=== PATIENT | female | born 1940 | race Caucasian/White ===

== ENCOUNTER 2020-01-01 13:00 | Observation (INO) | payer MEDICARE, BC ==
[2020-01-01] MEDS ORDERED: Sodium Chloride 0.9% 10 ML Syringe FLUSH PRN ×2 (13:03→16:16)
[2020-01-01] MEDS ORDERED: Famotidine 20 MG/2 ML SDV IVPUSH ONE (13:03)
[2020-01-01] MEDS ORDERED: Metoprolol Tartrate 5 MG/5 ML SDV IVPUSH ONE (13:03)
--- NOTE | 2020-01-01 13:03 | EDM.PDOC ---
ED HPI GENERAL MEDICAL PROBLEM - General Chief Complaint: General Stated Complaint: tahycardia Time Seen by Provider: 01/01/20 13:03 Source of Information: Reports: Patient, Family, Old Records ([facility] chart/EMR) History Limitations: Reports: No Limitations - History of Present Illness INITIAL COMMENTS - FREE TEXT/NARRATIVE: The patient was referred to this emergency room by her regular provider, DANILO Khan at the [facility] in [place] before apparently newly diagnosed atrial fibrillation with mild rapid ventricular response. The patient insisted on driving herself to this facility rather than taking an ambulance for further evaluation. The patient denies any chest pain/pressure, heart flutter, orthostasis, orthopnea, diaphoresis, paresthesias, or any other anginal -type symptoms, although she has had some nonspecific dizziness during the last couple of days and also some decreased exercise tolerance for the last week.. No recent history of abdominal pain, heartburn, nausea, melena, gross hematochezia, or any food intolerance, including fatty foods, etc. with stable chronic diarrhea from her irritable bowel syndrome. She denies any gross hematuria, colic, or other UTI symptoms. The patient also denies any recent fever, cough, wheezing, dyspnea, etc.. She denies any significant caffeine use, use of OTC cold preparations, etc. No history of any pain or discomfort. Onset: Gradual, Unknown/Unsure Duration: Constant Location: Reports: Other (No pain) Severity: Mild Improves with: Reports: None Worsens with: Reports: None Context: Reports: Other (As above). 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: Other (see below) (None) - Related Data Allergies Allergy/AdvReac Type Severity Reaction Status Date / Time amoxicillin trihydrate Allergy Nausea Verified 01/01/20 13:01 [From Augmentin] nickel Allergy Rash Verified 01/01/20 13:01 potassium clavulanate Allergy Nausea Verified 01/01/20 13:01 [From Augmentin] Home Meds: Home Meds Acetaminophen/Diphenhydramine [Tylenol Pm Ex-Strength Caplet] 25 tab PO BEDTIME PRN 11/18/15 [History] Atropine/Diphenoxylate [Lomotil 0.025-2.5 MG] 1 tab PO BID PRN 11/18/15 [History ] Celecoxib [CeleBREX] 200 mg PO BEDTIME 11/18/15 [History] Esomeprazole Magnesium [Nexium] 40 mg PO DAILY 11/18/15 [History] Eszopiclone [Lunesta] 2 mg PO BEDTIME PRN 11/18/15 [History] Multivitamin with Minerals [Multiple Vitamin] 1 tab PO DAILY 11/18/15 [History] Aspirin [Halfprin] 81 mg PO DAILY 12/08/15 [History] Calcium Carbonate [Calcium] 600 mg PO DAILY 12/08/15 [History] Cholecalciferol (Vitamin D3) [Vitamin D3] 3,000 unit PO DAILY 12/08/15 [History] DULoxetine [Cymbalta] 60 mg PO DAILY 01/27/16 [History] Ibuprofen/Diphenhydramine Cit [Motrin PM Caplet] 2 tab PO BEDTIME PRN 01/27/16 [ History] atorvaSTATin [Lipitor] 10 mg PO BEDTIME 01/01/20 [History] Past Medical History HEENT History: Reports: Allergic Rhinitis, Cataract, Hard of Hearing, Impaired Vision. Denies: Glaucoma, Macular Degeneration, Otitis Media, Retinal Detachment Other HEENT History: She wears glasses. Bilateral presbycusis with bilateral hearing aides therapy. Cardiovascular History: Reports: High Cholesterol. Denies: Afib, Aneurysm, Arrhythmia, Blood Clots/VTE/DVT, CAD, Heart Failure, Heart Murmur, Hypertension , OK, PVD, Syncope Respiratory History: Reports: Intubation, Previous. Denies: Asthma, Bronchitis , Recurrent, COPD, Intubation, Difficult, PE, Pneumonia, Recurrent, Pneumothorax , Sleep Apnea, TB Gastrointestinal History: Reports: Chronic Diarrhea, Diverticulosis, GERD, Hemorrhoids, Irritable Bowel Syndrome, Other (See Below). Denies: Bowel Obstruction, Cholelithiasis, Chronic Constipation, Colon Polyp, Fecal Incontinence, Gastritis, GI Bleed, Hepatitis, Inflammatory Bowel Disease, Jaundice, Pancreatitis, PUD Other Gastrointestinal History: Sigmoid diverticulosis. Genitourinary History: Reports: None. Denies: Acute Renal Failure, Chronic Renal Insuffiency, Renal Calculus, STD, Urinary Incontinence, UTI, Recurrent RETAIL MARKETING SPECIALIST History: Reports: Fibroids, , Spontaneous . Denies: Dysfunctional Uterine Bleeding : 5 Para: 2 LMP (Approximate): Other (See Below) Other RETAIL MARKETING SPECIALIST History: Menopause at age 40. Subsequent complete hysterectomy secondary to fibroids at about age 72. SABs 3 in the first trimester with D&Cs as below. Otherwise, Full term without complications during pregnancies or deliveries Musculoskeletal History: Reports: Arthritis, Back Pain, Chronic, Neck Pain, Chronic, Osteoarthritis, Osteoporosis. Denies: Amputation, Fracture, Gout, RA, SLE Neurological History: Reports: Headaches, Chronic, Migraines. Denies: Cerebral Aneurysms, Concussion, CVA, Head Trauma, MS, Neuropathy, Diabetic, Neuropathy, Peripheral, Parkinson's, Seizure, TIA Psychiatric History: Reports: Anxiety, Depression. Denies: Abuse, Victim of, ADD, ADHD, Addiction, Psych Hospitalization(s), Suicide Attempt, Suicidal Ideation Endocrine/Metabolic History: Reports: Osteopenia, Osteoporosis. Denies: Diabetes, Gestational, Diabetes, Type I, Diabetes, Type II, Diabetes Mellitus, Type 3c, Hypothyroidism, IDDM Hematologic History: Reports: Other (See Below). Denies: Anemia, Blood Transfusion(s), Iron Deficiency Other Hematologic History: Carrier for Leiden factor V deficiency. Immunologic History: Reports: None. Denies: AIDS, HIV, SLE Oncologic (Cancer) History: Reports: None. Denies: Basal Cell Carcinoma, Breast , Cervix, Colon, Hodgkin's Lymphoma, Leukemia, Lymphoma, Malignant Melanoma, Non -Hodgkin's Lymphoma, Ovarian, Squamous Cell Carcinoma, Uterine Dermatologic History: Reports: None. Denies: Eczema, Psoriasis - Infectious Disease History Infectious Disease History: Reports: Chicken Pox, Measles, Mumps, Pertussis ( Whooping Cough). Denies: C-Difficile, Meningitis, Mononucleosis, MRSA, Rheumatic Fever, Rubella, Scarlet Fever, Shingles, TB, VRE - Past Surgical History Head Surgeries/Procedures: Reports: None HEENT Surgical History: Reports: Cataract Surgery, Oral Surgery, Other (See Below). Denies: Adenoidectomy, Eye Surgery, Laser Surgery, LASIK, Myringotomy w Tube(s), Naso-Sinus Surgery, Tonsillectomy Other HEENT Surgeries/Procedures: Biateral cataract surgery 2013. Multiple teeth extractions. Cardiovascular Surgical History: Reports: None. Denies: Varicose Respiratory Surgical History: Reports: None. Denies: Thoracentesis GI Surgical History: Reports: Appendectomy, Colonoscopy, Other (See Below). Denies: Cholecystectomy, EGD, Hernia, Abdominal, Hernia, Inguinal, Hernia Repair /Other, Polypectomy Other GI Surgeries/Procedures: Appendectomy in April 1958. Hemorrhoidectomy on . Colonoscopy on 12/08/15, 09/06/08, and 11/27/04. Female Surgical History: Reports: Breast Biopsy, D&C, Dilitation & Evacuation , Hysterectomy, Salpingo-Oophorectomy, Other (See Below) Other Female Surgeries/Procedures: Bilateral breast biopsies for benign disease. Complete hysterectomy secondary to uterine fibroid on 11/19/13. D&C 3 secondary to SABs as above. Endocrine Surgical History: Reports: None. Denies: Thyroid Biopsy Neurological Surgical History: Denies: C-Spine, Discectomy, Intracranial, Laminectomy, Lumbar Spine, Sacral Spine, Spinal Fusion, Thoracic Spine, Vertebroplasty Musculoskeletal Surgical History: Reports: Joint Replacement, Shoulder Surgery, Other (See Below). Denies: Arthroscopic Procedure, Carpal Tunnel, Ganglion Cyst Other Musculoskeletal Surgeries/Procedures:: Bilateral wrist/hand tendon tendon release. Left shoulder total arthroplasty on 11/19/13 subsequent total shoulder arthroplasty in 2014. Oncologic Surgical History: Reports: Biopsy of Breast, Other (See Below) Other Oncologic Surgeries/Procedures: As above for benign disease. Dermatological Surgical History: Reports: None - Past Imaging History Past Imaging History: Reports: MRI (MRI of the C-spine on 03/06/10.) Social & Family History - Family History Cardiac: Reports: CAD, Hypertension, OK, Other (See Below). Denies: Afib, Aneurysm, Arrhythmia, Blood Clots/VTE/DVT, Heart Failure, Heart Murmur, High Cholesterol, PVD/COD, Syncope Other Cardiac Family History: Mother with concurrent CVA and acute OK with unsuccessful CABG at age 79. Father with fatal OK at age 77. Sister with fatal OK at age 83. Hypertension in father, sister, and brothers 2. Respiratory: Reports: None. Denies: Asthma, COPD, PE, Pneumothorax, Sleep Apnea GI: Reports: None. Denies: Celiac Disease, Cholelithiasis, Colon Polyps, GERD, GI bleed, Inflammatory Bowel Disease, Irritable Bowel Syndrome, PUD : Reports: Dialysis, Renal Disease/Insufficiency, Other (See Below). Denies: Renal Calculus Other Family History: Brotherwith renal failure requiring dialysis fatal at age 73. OBGYN: Reports: Endometriosis, Other (See Below). Denies: Recurrent Spontaneous Other OBGYN Family History: Sister with endometriosis. Musculoskeletal: Reports: Arthritis, Osteoarthritis, Other (See Below). Denies : Gout, RA, SLE Other Musculoskeletal Family History: Sisters 2 with osteoarthritis. Neurological: Reports: CVA, Other (See Below). Denies: Alzheimers Disease, Dementia, Migraines, MS, Parkinson's, Seizure, TIA Other Neurological Family History: Mother with CVA as above. Psychiatric: Denies: Abuse, Victim of, ADD, ADHD, Anxiety, Depression, Psych Hospitalization(s), Psychosis, PTSD, Suicide Attempt Endocrine/Metabolic: Reports: Diabetes, type II, IDDM, Other (See Below). Denies: Diabetes, Gestational, Diabetes, Type I, Diabetes Mellitus, Type 3c, Hypothyroidism Other Endocrine/Metabolic Family History: IDDM in brother from complications at age 47. Hematologic: Reports: None. Denies: Anemia, SLE Immunologic: Reports: None. Denies: AIDS, HIV, SLE Dermatologic: Reports: None. Denies: Eczema, Psoriasis Oncologic: Reports: Breast, Lymphoma, Metastatic, Other (See Below). Denies: Cervix, Colon, Hodgkin's Lymphoma, Leukemia, Non-Hodgkin's Lymphoma, Ovarian, Skin, Uterine Other Oncologic Family History: Mother with history of lymphoma. Sister with fatal metastatic breast cancer at 79. Another sister with unknown type of fatal cancer in her late 70s. - Tobacco Use Smoking Status *Q: Never Smoker Tobacco Use Within Last Twelve Months: No Used Tobacco, but Quit: No Smoking Cessation Information Provided To Patient: No Second Hand Smoke Exposure: No Second Hand Smoke Education Provided: No - Caffeine Use Caffeine Use: Reports: Coffee (2 Cups Per day.), Soda (1 soda per month). Denies: Energy Drinks, Tea - Alcohol Use Alcohol Use History: Yes Days Per Week of Alcohol Use: 0 Number of Drinks Per Day: 1 Number of Drinks Per Day Comment: Usually beer for holidays. No previous DWIs, problems with alcohol abuse, etc. 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 ED EXAM, GENERAL - Physical Exam Exam: See Below Exam Limited By: No Limitations General Appearance: Alert, WD/WN, No Apparent Distress Eye Exam: Bilateral Eye: EOMI, Normal Inspection (No nystagmus. Patient wearing glasses.), PERRL Ears: Normal External Exam, Normal Canal, Normal TMs, Hearing Loss (Mild bilateral presbycusis with patient only wearing her left hearing aid today.) Nose: Normal Inspection, Normal Mucosa, No Blood Throat/Mouth: Normal Inspection, Normal Lips, Normal Teeth (Multiple missing teeth), Normal Gums, Normal Oropharynx, Normal Voice, No Airway Compromise. No : Dysphagia, Perioral Cyanosis Head: Atraumatic, Normocephalic. No: Facial Swelling, Facial Tenderness, Sinus Tenderness Neck: Supple, Non-Tender, Full Range of Motion, Carotid Bruit (Mild bilateral carotid bruits). No: Lymphadenopathy (L), Lymphadenopathy (R), Thyromegaly Respiratory/Chest: No Respiratory Distress, No Accessory Muscle Use, Chest Non- Tender, Rales (Mild Bilateral basilar rales). No: Pleural Rub, Retractions Cardiovascular: Normal Peripheral Pulses, No Edema, No Gallop, No JVD, No Murmur , No Rub, Tachycardia (Initially as below), Irregularly Irregular. No: Gallop/ S3, Gallop/S4, Friction Rub Peripheral Pulses: 2+: Radial (L), Radial (R), Dorsalis Pedis (L), Dorsalis Pedis (R) GI/Abdominal: Normal Bowel Sounds, Soft, Non-Tender, No Organomegaly, No Distention, No Abnormal Bruit, No Mass. No: Pelvis Stable (Female) Exam: Deferred Rectal (Female) Exam: Deferred Back Exam: Normal Inspection, Full Range of Motion. No: CVA Tenderness (L), CVA Tenderness (R), Muscle Spasm Extremities: Normal Inspection, Normal Range of Motion, Non-Tender, No Pedal Edema, Normal Capillary Refill. No: Juan's Sign Neurological: Alert, Oriented, CN II-XII Intact, Normal Cognition, Normal Gait, Normal Reflexes (Negative Babinski's), No Motor/Sensory Deficits Psychiatric: Normal Affect Skin Exam: Warm, Dry, Intact, Normal Color, No Rash. No: Diaphoretic, Wound/ Incision Lymphatic: No Adenopathy EKG INTERPRETATION EKG Date: 01/01/20 Time: 13:09 Rhythm: A-Fib Rate (Beats/Min): 101 [place]: Normal (Neutral) P-Wave: Variable QRS: Normal (0.07 seconds) ST-T: Normal QT: Normal CO/PQ Interval: Variable with pulmonary hypertension by EKG Comparison: NA - No Prior EKG (No recent EKG for comparison) EKG Interpretation Comments: 1. Newly diagnosed atrial fibrillation with rapid ventricular response 2. Pulmonary hypertension by EKG 3. No acute ischemic changes Course - Vital Signs Last Recorded V/S: Last Vital Signs Temp 36.7 C 01/01/20 13:04 Pulse 82 01/01/20 14:23 Resp 17 01/01/20 14:23 BP 98/64 01/01/20 14:23 Pulse Ox 99 01/01/20 14:23 Vital Signs - 24 hr 01/01/20 01/01/20 01/01/20 13:01 13:04 13:08 Temperature [ 36.5 C 36.7 C Temporal] Pulse, Peripheral Pulse, 99 106 H 103 H Peripheral [ Right Pulse Oximetry] Respiratory 19 19 15 Rate Blood Pressure Blood Pressure 107/61 107/61 121/62 [Right Upper Arm] O2 Sat by Pulse 91 L 95 95 Oximetry O2 Sat by Pulse 99 Oximetry [Room Air] 01/01/20 01/01/20 01/01/20 13:23 13:26 13:53 Temperature [ Temporal] Pulse, 108 H Peripheral Pulse, 90 85 Peripheral [ Right Pulse Oximetry] Respiratory 11 L 16 Rate Blood Pressure 120/61 Blood Pressure 120/61 97/71 [Right Upper Arm] O2 Sat by Pulse 96 99 Oximetry O2 Sat by Pulse Oximetry [Room Air] 01/01/20 01/01/20 14:08 14:23 Temperature [ Temporal] Pulse, Peripheral Pulse, 86 82 Peripheral [ Right Pulse Oximetry] Respiratory 17 17 Rate Blood Pressure Blood Pressure 101/67 98/64 [Right Upper Arm] O2 Sat by Pulse 97 99 Oximetry O2 Sat by Pulse Oximetry [Room Air] - Orders/Labs/Meds Orders: Active Orders 24 hr Category Date Time Status Cardiac Monitoring [RC] . DIRECTED Care 01/01/20 13:04 Active EKG Documentation Completion [RC] ASDIRECTED Care 01/01/20 13:04 Active Oxygen Therapy, ED [RC] CONTINUOUS Care 01/01/20 13:04 Active Peripheral IV Care [RC] . DIRECTED Care 01/01/20 13:04 Active Pulse Oximetry [RC] CONTINUOUS Care 01/01/20 13:04 Active Up With Assistance [RC] PFP Care 01/01/20 13:04 Active Vital Signs [RC] PFP Care 01/01/20 13:04 Active Nothing per Oral Now Diet [DIET] Diet 01/01/20 Breakfast Active Chest 1V Frontal [CR] Stat Exams 01/01/20 13:04 Taken Chest PE [Ang Chest] [CT] Stat Exams 01/01/20 14:16 Taken Venous Doppler Lwr Ext Bi [US] Urgent Exams 01/01/20 14:16 Taken Sodium Chloride 0.9% [Saline Flush] Med 01/01/20 13:03 Active 10 ml FLUSH ASDIRECTED PRN Obtain Past Medical Record [OM.PC] Urgent Oth 01/01/20 13:04 Active Peripheral IV Insertion Adult [OM.PC] Stat Oth 01/01/20 13:04 Ordered Resuscitation Status Stat Resus Stat 01/01/20 13:03 Ordered Medication Orders Sodium Chloride (Saline Flush) 10 ml FLUSH ASDIRECTED PRN PRN Reason: Keep Vein Open Last Admin: 01/01/20 13:31 Dose: 10 ml Labs: Laboratory Tests 01/01/20 01/01/20 01/01/20 Range/Units 13:18 13:18 13:18 WBC 6.7 (4.0-10.2) K/uL RBC 4.22 (3.77-5.09) M/uL Hgb 12.6 (11.7-15.5) g/dL Hct 39.0 (34.0-46.0) % MCV 92.4 (84.0-98.0) fL MCH 29.9 (28.2-33.3) pg MCHC 32.3 (31.7-36.0) g/dL RDW 13.9 (11.2-14.1) % Plt Count 232 (150-350) K/uL Neut % (Auto) 68.1 (45.0-80.0) % Lymph % (Auto) 19.9 (10.0-50.0) % [place] % (Auto) 10.7 (2.0-14.0) % Eos % (Auto) 1.0 (0.0-5.0) % Baso % (Auto) 0.3 (0.0-2.0) % Neut # (Auto) 4.56 (1.40-7.00) K/uL Lymph # (Auto) 1.33 (0.50-3.50) K/uL [place] # (Auto) 0.72 (0.00-1.00) K/uL Eos # (Auto) 0.07 (0.00-0.50) K/uL Baso # (Auto) 0.02 (0.00-0.20) K/uL PT 10.1 (9.5-12.0) SEC INR 1.0 APTT 27.0 (24.5-32.8) SEC D-Dimer, Quantitative 799 H (0-400) ng/mL Sodium (136-145) mmol/L Potassium (3.5-5.1) mmol/L Chloride (98-107) mmol/L Carbon Dioxide (21.0-32.0) mmol/L BUN (7-18) mg/dL Creatinine (0.51-1.17) mg/dL Est Cr Clr Drug Dosing mL/min Estimated GFR (MDRD) mL/min Glucose (74-106) mg/dL Lactic Acid (0.4-2.0) mmol/L Uric Acid (2.6-7.2) mg/dL Calcium (8.5-10.1) mg/dL Magnesium (1.8-2.4) mg/dL Total Bilirubin (0.2-1.0) mg/dL AST (15-37) U/L ALT (12-78) U/L Alkaline Phosphatase (46-116) IU/L Creatine Kinase (26-308) U/L Creatine Kinase Index (0.0-2.5) % CK-MB (CK-2) (0.00-3.60) ng/mL Troponin I (0.000-0.056) ng/mL NT-Pro-B Natriuret Pep (0-125) pg/mL Total Protein (6.4-8.2) g/dL Albumin (3.4-5.0) g/dL TSH, Ultra Sensitive (0.358-3.740) mIU/mL 01/01/20 01/01/20 Range/Units 13:18 13:18 WBC (4.0-10.2) K/uL RBC (3.77-5.09) M/uL Hgb (11.7-15.5) g/dL Hct (34.0-46.0) % MCV (84.0-98.0) fL MCH (28.2-33.3) pg MCHC (31.7-36.0) g/dL RDW (11.2-14.1) % Plt Count (150-350) K/uL Neut % (Auto) (45.0-80.0) % Lymph % (Auto) (10.0-50.0) % [place] % (Auto) (2.0-14.0) % Eos % (Auto) (0.0-5.0) % Baso % (Auto) (0.0-2.0) % Neut # (Auto) (1.40-7.00) K/uL Lymph # (Auto) (0.50-3.50) K/uL [place] # (Auto) (0.00-1.00) K/uL Eos # (Auto) (0.00-0.50) K/uL Baso # (Auto) (0.00-0.20) K/uL PT (9.5-12.0) SEC INR APTT (24.5-32.8) SEC D-Dimer, Quantitative (0-400) ng/mL Sodium 140 (136-145) mmol/L Potassium 4.3 (3.5-5.1) mmol/L Chloride 107 (98-107) mmol/L Carbon Dioxide 24.6 (21.0-32.0) mmol/L BUN 16 (7-18) mg/dL Creatinine 1.04 (0.51-1.17) mg/dL Est Cr Clr Drug Dosing 35.09 mL/min Estimated GFR (MDRD) 51 mL/min Glucose 83 (74-106) mg/dL Lactic Acid 1.4 (0.4-2.0) mmol/L Uric Acid 5.3 (2.6-7.2) mg/dL Calcium 9.3 (8.5-10.1) mg/dL Magnesium 1.9 (1.8-2.4) mg/dL Total Bilirubin 0.3 (0.2-1.0) mg/dL AST 28 (15-37) U/L ALT 31 (12-78) U/L Alkaline Phosphatase 91 (46-116) IU/L Creatine Kinase 125 (26-308) U/L Creatine Kinase Index 1.6 (0.0-2.5) % CK-MB (CK-2) 2.00 (0.00-3.60) ng/mL Troponin I 0.000 (0.000-0.056) ng/mL NT-Pro-B Natriuret Pep 816 H (0-125) pg/mL Total Protein 7.1 (6.4-8.2) g/dL Albumin 3.8 (3.4-5.0) g/dL TSH, Ultra Sensitive 3.664 (0.358-3.740) mIU/mL Meds: Medications Generic Name Dose Route Start Last Admin Trade Name Freq PRN Reason Stop Dose Admin Sodium Chloride 10 ml 01/01/20 13:03 01/01/20 13:31 Saline Flush FLUSH 10 ml ASDIRECTED PRN Administration Keep Vein Open Discontinued Medications Generic Name Dose Route Start Last Admin Trade Name Freq PRN Reason Stop Dose Admin Famotidine 40 mg 01/01/20 13:03 01/01/20 13:30 Pepcid IVPUSH 01/01/20 13:04 40 mg ONETIME ONE Administration Iopamidol 100 ml 01/01/20 14:17 01/01/20 14:38 Isovue-370 (76%) IVPUSH 01/01/20 14:18 100 ml ONETIME ONE Administration Metoprolol Tartrate 2.5 mg 01/01/20 13:03 01/01/20 13:26 Lopressor IVPUSH 01/01/20 13:04 2.5 mg ONETIME ONE Administration - Radiology Interpretation Free Text/Narrative:: Edit monitor initially showed atrial fibrillation with rapid ventricular response and heart rates in the 100s to 110s with no other ectopy or arrhythmia. Improvement of heart rate into the 60s to 90s after IV Lopressor therapy with persistent atrial fibrillation however no other ectopy or arrhythmia. Chest x-ray, portable, shows borderline pulmonary obstructive disease with probable mild centralized CHF and/or pulmonary hypertension. Mild aortic valve calcification. No cardiomegaly, pulmonary infiltrates, pneumothorax, etc. Verbal report from delay, biomedical engineering technician, of venous Doppler studies of the lower extremities. No evidence of DVT. Benign Hansen's cyst was noted, however. CT of the chest using PE protocol was negative for PE with small benign right upper lobe pulmonary nodule. Preliminary verbal report from the radiology department was not received from Kyle despite her previous request. Departure - Departure Time of Disposition: 16:00 Disposition: Refer to Observation Condition: Good Clinical Impression: Atrial fibrillation with RVR, Peptic reflux disease, D-dimer, elevated, Pulmonary nodule Hyperlipidemia Qualifiers: Hyperlipidemia type: unspecified Qualified Code(s): E78.5 - Hyperlipidemia, unspecified Osteoarthritis Qualifiers: Osteoarthritis location: multiple joints Osteoarthritis type: primary Qualified Code(s): M15.0 - Primary generalized (osteo)arthritis Irritable bowel syndrome (IBS) Qualifiers: Irritable bowel syndrome type: with diarrhea Qualified Code(s): K58.0 - Irritable bowel syndrome with diarrhea CHF (congestive heart failure) Qualifiers: Heart failure type: unspecified Heart failure chronicity: acute Qualified Code( s): I50.9 - Heart failure, unspecified - Discharge Information *PRESCRIPTION DRUG MONITORING PROGRAM REVIEWED*: Not Applicable *COPY OF PRESCRIPTION DRUG MONITORING REPORT IN PATIENT JANIS: Not Applicable Referrals: Deepika Kamara NP [Primary Care Provider] - Forms: ED Department Discharge Care Plan Goals: See plan. Sepsis Event Note - Focused Exam Vital Signs: Vital Signs Temp Pulse Pulse Resp BP BP Pulse Ox 01/01/20 14:23 82 17 98/64 99 01/01/20 14:08 86 17 101/67 97 01/01/20 13:53 85 16 97/71 99 01/01/20 13:26 108 H 120/61 01/01/20 13:23 90 11 L 120/61 96 01/01/20 13:08 103 H 15 121/62 95 01/01/20 13:04 36.7 C 106 H 19 107/61 95 01/01/20 13:01 36.5 C 99 19 107/61 91 L Pulse Ox 01/01/20 14:23 01/01/20 14:08 01/01/20 13:53 01/01/20 13:26 01/01/20 13:23 01/01/20 13:08 01/01/20 13:04 99 01/01/20 13:01 Date Exam was Performed: 01/01/20 Time Exam was Performed: 15:58 - Problem List & Annotations (1) Atrial fibrillation with RVR SNOMED Code(s): 729985934387391 Code(s): I48.91 - UNSPECIFIED ATRIAL FIBRILLATION Status: Acute Priority : High Current Visit: Yes Onset Date: 01/01/20 Annotation/Comment:: Low- dose IV Lopressor given in the emergency room with resolution of tachycardia however persistent atrial fibrillation. Initiate low-dose Toprol XL on admission. No chest pain or anginal type symptoms with chest pain protocol not initiated in the emergency room.. Initiate standard rule out OK orders with further cardiac workup on an outpatient basis, including recommended echocardiogram in this facility on 01/04 and Cardiolite stress test with me on . Cardiology consultation depending on her clinical course. 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 (2) CHF (congestive heart failure) SNOMED Code(s): 51728745 Code(s): I50.9 - HEART FAILURE, UNSPECIFIED Status: Acute Priority: High Current Visit: Yes Onset Date: 01/01/20 Annotation/Comment:: Mild BNP elevation and CSF by clinical exam. Echocardiogram as above. No Lasix for now. Qualifiers: Heart failure type: unspecified Heart failure chronicity: acute Qualified Code(s): I50.9 - Heart failure, unspecified (3) D-dimer, elevated SNOMED Code(s): 349468856 Code(s): R79.89 - OTHER SPECIFIED ABNORMAL FINDINGS OF BLOOD CHEMISTRY Status: Acute Priority: High Current Visit: Yes Onset Date: 01/01/20 Annotation/Comment:: Negative venous Doppler study evaluation and CT of the chest as above. Observe for now. No clinical evidence of DVT or PE. (4) Hyperlipidemia SNOMED Code(s): [id number] Code(s): E78.5 - HYPERLIPIDEMIA, UNSPECIFIED Status: Chronic Priority: Medium Current Visit: Yes Annotation/Comment:: Lipid panel and glycosylated hemoglobin in the a.m. Qualifiers: Hyperlipidemia type: unspecified Qualified Code(s): E78.5 - Hyperlipidemia , unspecified (5) Irritable bowel syndrome (IBS) SNOMED Code(s): 33451547 Code(s): K58.9 - IRRITABLE BOWEL SYNDROME WITHOUT DIARRHEA Status: Chronic Priority: Medium Current Visit: Yes Annotation/Comment:: Stable by history Qualifiers: Irritable bowel syndrome type: with diarrhea Qualified Code(s): K58.0 - Irritable bowel syndrome with diarrhea (6) Osteoarthritis SNOMED Code(s): 789766201 Code(s): M19.90 - UNSPECIFIED OSTEOARTHRITIS, UNSPECIFIED SITE Status: Chronic Priority: Medium Current Visit: Yes Annotation/Comment:: Stable by history Qualifiers: Osteoarthritis location: multiple joints Osteoarthritis type: primary Qualified Code(s): M15.0 - Primary generalized (osteo)arthritis (7) Peptic reflux disease SNOMED Code(s): 976158915 Code(s): K21.9 - GASTRO-ESOPHAGEAL REFLUX DISEASE WITHOUT ESOPHAGITIS Status: Chronic Priority: Medium Current Visit: Yes Annotation/Comment:: Stable by history. High-dose IV Pepcid given in the emergency room as GI prophylaxis. (8) Pulmonary nodule SNOMED Code(s): 022474399 Code(s): R91.1 - SOLITARY PULMONARY NODULE Status: Acute Priority: Medium Current Visit: Yes Onset Date: 01/01/20 Annotation/Comment:: Incidental benign right upper lobe pulmonary nodule as above. Observe for now. No history of tobacco use. - Problem List Review Problem List Initiated/Reviewed/Updated: Yes - My Orders Last 24 Hours: My Active Orders 01/01/20 13:03 Sodium Chloride 0.9% [Saline Flush] 10 ml FLUSH ASDIRECTED PRN Resuscitation Status Stat 01/01/20 13:04 Cardiac Monitoring [RC] . DIRECTED EKG Documentation Completion [RC] ASDIRECTED Oxygen Therapy, ED [RC] CONTINUOUS Peripheral IV Care [RC] . DIRECTED Pulse Oximetry [RC] CONTINUOUS Up With Assistance [RC] PFP Vital Signs [RC] PFP Chest 1V Frontal [CR] Stat Obtain Past Medical Record [OM.PC] Urgent Peripheral IV Insertion Adult [OM.PC] Stat 01/01/20 14:16 Chest PE [Ang Chest] [CT] Stat Venous Doppler Lwr Ext Bi [US] Urgent 01/01/20 Breakfast Nothing per Oral Now Diet [DIET] - Assessment/Plan Admission H&P: Please use this note as an admission H&P Last 24 Hours: My Active Orders 01/01/20 13:03 Sodium Chloride 0.9% [Saline Flush] 10 ml FLUSH ASDIRECTED PRN Resuscitation Status Stat 01/01/20 13:04 Cardiac Monitoring [RC] . DIRECTED EKG Documentation Completion [RC] ASDIRECTED Oxygen Therapy, ED [RC] CONTINUOUS Peripheral IV Care [RC] . DIRECTED Pulse Oximetry [RC] CONTINUOUS Up With Assistance [RC] PFP Vital Signs [RC] PFP Chest 1V Frontal [CR] Stat Obtain Past Medical Record [OM.PC] Urgent Peripheral IV Insertion Adult [OM.PC] Stat 01/01/20 14:16 Chest PE [Ang Chest] [CT] Stat Venous Doppler Lwr Ext Bi [US] Urgent 01/01/20 Breakfast Nothing per Oral Now Diet [DIET] Assessment:: As above Plan: As above. Extensive precautions were given to the patient and her daughter, who are in agreement with the treatment plan. The patient's condition is stable enough for observation status and general supervision. Kray norris physician assumes care in the a.m.
[2020-01-01] MEDS ORDERED: Iopamidol 755 Mg/ML 100 ML Bottle IVPUSH ONE (14:17)
[2020-01-01] MEDS ORDERED: Atropine/Diphenoxylate 0.025-2.5 MG Tab PO PRN (16:15)
[2020-01-01] MEDS ORDERED: Acetaminophen 325 MG Tab PO PRN (16:16)
[2020-01-01] MEDS ORDERED: Temazepam 15 MG Cap PO PRN (16:16)
[2020-01-01] MEDS ORDERED: Metoprolol Succinate 25 MG Tab.ER PO SCH (18:37)
[2020-01-01] MEDS ORDERED: atorvaSTATin 10 MG Tab PO SCH (20:00)
[2020-01-02 07:28] LABS: HEMOGLOBIN A1C 5.8 % (4.3-5.7)
[2020-01-02 07:54] LABS: CHLORIDE,CL 108 mmol/L (98-107); SODIUM,NA 140 mmol/L (136-145)
[2020-01-02] MEDS ORDERED: DULoxetine 30 MG Cap PO SCH (08:00)
[2020-01-02] MEDS ORDERED: Aspirin 81 MG Tab.EC PO SCH (08:00)
[2020-01-02 09:34] VITALS: BP 114/54; PULSE 74
--- NOTE | 2020-01-02 09:47 | PCM.DCSUM1 ---
Discharge Summary - Hospital Course Free Text/Narrative:: Pt admitted with Afib and RVR Pt has hx/o intermittent Afib but no hx/o RVR previously Pt now converted and symptom free - Discharge Data Discharge Date: 01/02/20 Discharge Disposition: Home, Self-Care 01 Condition: Good - Referral to Home Health Primary Care Physician: Deepika Kamara NP - Discharge Diagnosis/Problem(s) (1) Atrial fibrillation with RVR SNOMED Code(s): 081083352887435 ICD Code: I48.91 - UNSPECIFIED ATRIAL FIBRILLATION Status: Acute Priority : High Current Visit: Yes Onset Date: 01/01/20 Problem Details: Low-dose IV Lopressor given in the emergency room with resolution of tachycardia however persistent atrial fibrillation. Initiate low-dose Toprol XL on admission. No chest pain or anginal type symptoms with chest pain protocol not initiated in the emergency room.. Initiate standard rule out [place] orders with further cardiac workup on an outpatient basis, including recommended echocardiogram in this facility on 01/04 and Cardiolite stress test with me on 01/06. Cardiology consultation depending on her clinical course. 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 - Patient Instructions Diet: Usual Diet as Tolerated Activity: As Tolerated Driving: May Drive Today Showering/Bathing: May Shower Other/Special Instructions: Usual medications and follow up with usual provider - Discharge Plan *PRESCRIPTION DRUG MONITORING PROGRAM REVIEWED*: Not Applicable *COPY OF PRESCRIPTION DRUG MONITORING REPORT IN PATIENT JANIS: Not Applicable Home Medications: Home Meds Acetaminophen/Diphenhydramine [Tylenol Pm Ex-Strength Caplet] 25 tab PO BEDTIME PRN 11/18/15 [History] Atropine/Diphenoxylate [Lomotil 0.025-2.5 MG] 1 tab PO BID PRN 11/18/15 [History ] Celecoxib [CeleBREX] 200 mg PO BEDTIME 11/18/15 [History] Esomeprazole Magnesium [Nexium] 40 mg PO DAILY 11/18/15 [History] Eszopiclone [Lunesta] 2 mg PO BEDTIME PRN 11/18/15 [History] Multivitamin with Minerals [Multiple Vitamin] 1 tab PO DAILY 11/18/15 [History] Aspirin [Halfprin] 81 mg PO DAILY 12/08/15 [History] Calcium Carbonate [Calcium] 600 mg PO DAILY 12/08/15 [History] Cholecalciferol (Vitamin D3) [Vitamin D3] 3,000 unit PO DAILY 12/08/15 [History] DULoxetine [Cymbalta] 60 mg PO DAILY 01/27/16 [History] Ibuprofen/Diphenhydramine Cit [Motrin PM Caplet] 2 tab PO BEDTIME PRN 01/27/16 [ History] atorvaSTATin [Lipitor] 10 mg PO BEDTIME 01/01/20 [History] Forms: ED Department Discharge Referrals: Deepika Kamara NP [Primary Care Provider] - - Discharge Summary/Plan Comment DC Time >30 min.: No - General Info Date of Service: 01/02/20 Admission Dx/Problem (Free Text: Pt asymptomatic currently - Review of Systems Pulmonary: Reports: No Symptoms Cardiovascular: Reports: Palpitations Gastrointestinal: Reports: No Symptoms Musculoskeletal: Reports: No Symptoms - Patient Data Vitals - Most Recent: Last Vital Signs Temp 97.6 F 01/02/20 08:00 Pulse 74 01/02/20 08:00 Resp 20 01/02/20 08:00 BP 114/54 L 01/02/20 08:00 Pulse Ox 95 01/02/20 08:00 Weight - Most Recent: 126 lb 6.4 oz Lab Results - Last 24 hrs: Laboratory Results - last 24 hr 01/01/20 01/01/20 01/01/20 Range/Units 13:18 13:18 13:18 WBC 6.7 (4.0-10.2) K/uL RBC 4.22 (3.77-5.09) M/uL Hgb 12.6 (11.7-15.5) g/dL Hct 39.0 (34.0-46.0) % MCV 92.4 (84.0-98.0) fL MCH 29.9 (28.2-33.3) pg MCHC 32.3 (31.7-36.0) g/dL RDW 13.9 (11.2-14.1) % Plt Count 232 (150-350) K/uL Neut % (Auto) 68.1 (45.0-80.0) % Lymph % (Auto) 19.9 (10.0-50.0) % [place] % (Auto) 10.7 (2.0-14.0) % Eos % (Auto) 1.0 (0.0-5.0) % Baso % (Auto) 0.3 (0.0-2.0) % Neut # (Auto) 4.56 (1.40-7.00) K/uL Lymph # (Auto) 1.33 (0.50-3.50) K/uL [place] # (Auto) 0.72 (0.00-1.00) K/uL Eos # (Auto) 0.07 (0.00-0.50) K/uL Baso # (Auto) 0.02 (0.00-0.20) K/uL PT 10.1 (9.5-12.0) SEC INR 1.0 APTT 27.0 (24.5-32.8) SEC D-Dimer, Quantitative 799 H (0-400) ng/mL Sodium (136-145) mmol/L Potassium (3.5-5.1) mmol/L Chloride (98-107) mmol/L Carbon Dioxide (21.0-32.0) mmol/L BUN (7-18) mg/dL Creatinine (0.51-1.17) mg/dL Est Cr Clr Drug Dosing mL/min Estimated GFR (MDRD) mL/min Glucose (74-106) mg/dL Hemoglobin A1c (4.3-5.7) % Lactic Acid (0.4-2.0) mmol/L Uric Acid (2.6-7.2) mg/dL Calcium (8.5-10.1) mg/dL Magnesium (1.8-2.4) mg/dL Total Bilirubin (0.2-1.0) mg/dL AST (15-37) U/L ALT (12-78) U/L Alkaline Phosphatase (46-116) IU/L Creatine Kinase (26-308) U/L Creatine Kinase Index (0.0-2.5) % CK-MB (CK-2) (0.00-3.60) ng/mL Troponin I (0.000-0.056) ng/mL NT-Pro-B Natriuret Pep (0-125) pg/mL Total Protein (6.4-8.2) g/dL Albumin (3.4-5.0) g/dL Triglycerides (30-150) mg/dL Cholesterol (100-200) mg/dL LDL Cholesterol, Calc (0-100) mg/dL HDL Cholesterol (40-60) mg/dL TSH, Ultra Sensitive (0.358-3.740) mIU/mL 01/01/20 01/01/20 01/01/20 Range/Units 13:18 13:18 21:00 WBC (4.0-10.2) K/uL RBC (3.77-5.09) M/uL Hgb (11.7-15.5) g/dL Hct (34.0-46.0) % MCV (84.0-98.0) fL MCH (28.2-33.3) pg MCHC (31.7-36.0) g/dL RDW (11.2-14.1) % Plt Count (150-350) K/uL Neut % (Auto) (45.0-80.0) % Lymph % (Auto) (10.0-50.0) % [place] % (Auto) (2.0-14.0) % Eos % (Auto) (0.0-5.0) % Baso % (Auto) (0.0-2.0) % Neut # (Auto) (1.40-7.00) K/uL Lymph # (Auto) (0.50-3.50) K/uL [place] # (Auto) (0.00-1.00) K/uL Eos # (Auto) (0.00-0.50) K/uL Baso # (Auto) (0.00-0.20) K/uL PT (9.5-12.0) SEC INR APTT (24.5-32.8) SEC D-Dimer, Quantitative (0-400) ng/mL Sodium 140 (136-145) mmol/L Potassium 4.3 (3.5-5.1) mmol/L Chloride 107 (98-107) mmol/L Carbon Dioxide 24.6 (21.0-32.0) mmol/L BUN 16 (7-18) mg/dL Creatinine 1.04 (0.51-1.17) mg/dL Est Cr Clr Drug Dosing 35.09 mL/min Estimated GFR (MDRD) 51 mL/min Glucose 83 (74-106) mg/dL Hemoglobin A1c (4.3-5.7) % Lactic Acid 1.4 (0.4-2.0) mmol/L Uric Acid 5.3 (2.6-7.2) mg/dL Calcium 9.3 (8.5-10.1) mg/dL Magnesium 1.9 (1.8-2.4) mg/dL Total Bilirubin 0.3 (0.2-1.0) mg/dL AST 28 (15-37) U/L ALT 31 (12-78) U/L Alkaline Phosphatase 91 (46-116) IU/L Creatine Kinase 125 150 (26-308) U/L Creatine Kinase Index 1.6 1.8 (0.0-2.5) % CK-MB (CK-2) 2.00 2.70 (0.00-3.60) ng/mL Troponin I 0.000 0.000 (0.000-0.056) ng/mL NT-Pro-B Natriuret Pep 816 H (0-125) pg/mL Total Protein 7.1 (6.4-8.2) g/dL Albumin 3.8 (3.4-5.0) g/dL Triglycerides (30-150) mg/dL Cholesterol (100-200) mg/dL LDL Cholesterol, Calc (0-100) mg/dL HDL Cholesterol (40-60) mg/dL TSH, Ultra Sensitive 3.664 (0.358-3.740) mIU/mL 01/02/20 01/02/20 01/02/20 Range/Units 07:05 07:05 07:05 WBC 4.8 (4.0-10.2) K/uL RBC 3.79 (3.77-5.09) M/uL Hgb 11.3 L (11.7-15.5) g/dL Hct 35.1 (34.0-46.0) % MCV 92.6 (84.0-98.0) fL MCH 29.8 (28.2-33.3) pg MCHC 32.2 (31.7-36.0) g/dL RDW 13.6 (11.2-14.1) % Plt Count 209 (150-350) K/uL Neut % (Auto) 63.3 (45.0-80.0) % Lymph % (Auto) 24.0 (10.0-50.0) % [place] % (Auto) 10.4 (2.0-14.0) % Eos % (Auto) 1.9 (0.0-5.0) % Baso % (Auto) 0.4 (0.0-2.0) % Neut # (Auto) 3.04 (1.40-7.00) K/uL Lymph # (Auto) 1.15 (0.50-3.50) K/uL [place] # (Auto) 0.50 (0.00-1.00) K/uL Eos # (Auto) 0.09 (0.00-0.50) K/uL Baso # (Auto) 0.02 (0.00-0.20) K/uL PT (9.5-12.0) SEC INR APTT (24.5-32.8) SEC D-Dimer, Quantitative (0-400) ng/mL Sodium 140 (136-145) mmol/L Potassium 4.1 (3.5-5.1) mmol/L Chloride 108 H (98-107) mmol/L Carbon Dioxide 26.1 (21.0-32.0) mmol/L BUN 15 (7-18) mg/dL Creatinine 0.89 (0.51-1.17) mg/dL Est Cr Clr Drug Dosing 41.01 mL/min Estimated GFR (MDRD) > 60 mL/min Glucose 80 (74-106) mg/dL Hemoglobin A1c 5.8 H (4.3-5.7) % Lactic Acid (0.4-2.0) mmol/L Uric Acid (2.6-7.2) mg/dL Calcium 9.0 (8.5-10.1) mg/dL Magnesium (1.8-2.4) mg/dL Total Bilirubin 0.3 (0.2-1.0) mg/dL AST 19 (15-37) U/L ALT 23 (12-78) U/L Alkaline Phosphatase 80 (46-116) IU/L Creatine Kinase 120 (26-308) U/L Creatine Kinase Index 1.8 (0.0-2.5) % CK-MB (CK-2) 2.10 (0.00-3.60) ng/mL Troponin I 0.000 (0.000-0.056) ng/mL NT-Pro-B Natriuret Pep 232 H (0-125) pg/mL Total Protein 6.3 L (6.4-8.2) g/dL Albumin 3.4 (3.4-5.0) g/dL Triglycerides 60 (30-150) mg/dL Cholesterol 158 (100-200) mg/dL LDL Cholesterol, Calc 98 (0-100) mg/dL HDL Cholesterol 48 (40-60) mg/dL TSH, Ultra Sensitive (0.358-3.740) mIU/mL Med Orders - Current: Current Medications Acetaminophen (Tylenol) 650 mg PO Q4H PRN PRN Reason: Pain Aspirin (Halfprin) 81 mg PO DAILY [facility] Last Admin: 01/02/20 07:33 Dose: 81 mg Atorvastatin Calcium (Lipitor) 10 mg PO BEDTIME [facility] Last Admin: 01/01/20 19:29 Dose: 10 mg Diphenoxylate HCl/Atropine (Lomotil 0.025-2.5 Mg) 1 tab PO BID PRN PRN Reason: Diarrhea Duloxetine HCl (Cymbalta) 60 mg PO DAILY [facility] Last Admin: 01/02/20 07:33 Dose: 60 mg Metoprolol Succinate (Toprol Xl) 25 mg PO QPM [facility] Last Admin: 01/01/20 19:28 Dose: 25 mg Sodium Chloride (Saline Flush) 10 ml FLUSH ASDIRECTED PRN PRN Reason: Keep Vein Open Last Admin: 01/01/20 13:31 Dose: 10 ml Sodium Chloride (Saline Flush) 10 ml FLUSH Q12HR PRN PRN Reason: Keep Vein Open Temazepam (Restoril) 15 mg PO BEDTIME PRN PRN Reason: Insomnia Discontinued Medications Famotidine (Pepcid) 40 mg IVPUSH ONETIME ONE Stop: 01/01/20 13:04 Last Admin: 01/01/20 13:30 Dose: 40 mg Iopamidol (Isovue-370 (76%)) 100 ml IVPUSH ONETIME ONE Stop: 01/01/20 14:18 Last Admin: 01/01/20 14:38 Dose: 100 ml Metoprolol Tartrate (Lopressor) 2.5 mg IVPUSH ONETIME ONE Stop: 01/01/20 13:04 Last Admin: 01/01/20 13:26 Dose: 2.5 mg - Exam General: Reports: Alert, Oriented Lungs: Reports: Clear to Auscultation Cardiovascular: Reports: Regular Rate GI/Abdominal Exam: Non-Tender Extremities: No Pedal Edema
--- NOTE | 2020-01-05 11:20 | PCM.SN ---
- Free Text/Narrative Note: Hospital consultation with the patient, her , and her daughter, Rita, who is a pharmacist in our facility. They are now requesting further workup for her possible heart disease as per emergency room note on 01/01/20. Note mild atrial fibrillation with rapid ventricular response and CHF prior to that admission with negative workup for acute AK. The patient was not discharged with Toprol-XL, however we will now reinitiate Toprol-XL at 25 mg by mouth every afternoon, #30 with no refills, with prescription called to [facility] in [place]. Echocardiogram will be scheduled in this facility on 01/05 with additional Cardiolite stress test to be conducted in this facility by me on 01/14/20. Extensive precautions were given to the patient and her family, who are in agreement with the treatment plan. Consider anticoagulation therapy, cardiology referral, event monitor, etc. depending on her clinical course. Otherwise follow-up with her regular provider, DANILO Khan at the [facility], as previously directed and/or after completion of the above test results.
== END 2020-01-02 10:30 | disposition home or self-care (01) ==
LOC: LL.ED 13:00 → LL.MS 15:58 → UNDOADMOB 15:58 → LL.MS 16:10 → UNDODISOB 01-02 10:30
PROVIDERS: ADMIT Family Medicine; ATTEND Family Medicine
DX: I48.91 Unspecified atrial fibrillation (principal); R79.1 Abnormal coagulation profile; I50.9 Heart failure, unspecified; R91.1 Solitary pulmonary nodule; E78.5 Hyperlipidemia, unspecified; M15.0 Primary generalized (osteo)arthritis; K58.0 Irritable bowel syndrome with diarrhea; E78.00 Pure hypercholesterolemia, unspecified; F41.9 Anxiety disorder, unspecified; F32.9 Major depressive disorder, single episode, unspecified; M81.0 Age-related osteoporosis without current pathological fracture; K21.9 Gastro-esophageal reflux disease without esophagitis; Z79.82 Long term (current) use of aspirin; Z79.899 Other long term (current) drug therapy; Z88.0 Allergy status to penicillin; Z88.8 Allergy status to other drugs, medicaments and biological substances; Z82.49 Family history of ischemic heart disease and other diseases of the circulatory system
CPT/HCPCS: 36415; 71045; 71275; 80053; 80061; 82550; 82553; 83036; 83605; 83735; 83880; 84443; 84484; 84550; 85025; 85379; 85610; 85730; 93005; 93970; 96374; 96375; 99285-25; A9270-GY; G0378; J3490; Q9967

== ENCOUNTER 2020-01-07 12:40 | Emergency (ER) | payer MEDICARE, BC ==
[2020-01-07] MEDS ORDERED: Ketorolac 30 MG/ML SDV IVPUSH ONE (12:52)
[2020-01-07] MEDS ORDERED: Sodium Chloride 0.9% 10 ML Syringe FLUSH PRN (12:52)
--- NOTE | 2020-01-07 12:57 | EDM.PDOC ---
ED HPI GENERAL MEDICAL PROBLEM - General Chief Complaint: General Stated Complaint: dizziness, headache, arm pain Time Seen by Provider: 01/07/20 12:40 Source of Information: Reports: Patient, Old Records ([facility] chart/EMR) History Limitations: Reports: No Limitations - History of Present Illness INITIAL COMMENTS - FREE TEXT/NARRATIVE: The patient drove herself to the emergency room via private automobile for evaluation of a 6/10 throbbing bilateral frontal headache with additional sharp 6/10 left shoulder pain with no recent history of fall or injury. She has been under significant stress lately secondary to her 's placement in our swing bed unit. Symptoms started early yesterday morning with no improvement with 650 mg of Tylenol taken earlier this morning. The patient denies any chest pain/pressure, heart flutter, orthostasis, orthopnea, diaphoresis, paresthesias , recent decreased exercise tolerance, or any other anginal-type symptoms, although she has had occasional nonspecific dizziness since restarting her Toprol-XL after recent hospital discharge. No recent history of abdominal pain, heartburn, nausea, diarrhea, melena, gross hematochezia, or any food intolerance , including fatty foods, etc.. She denies any gross hematuria, colic, or other UTI symptoms. The patient also denies any recent fever, cough, wheezing, dyspnea , etc.. No history of recent visual changes, diplopia, change in mental status, or other change in neurological status. Onset: Gradual, Unknown/Unsure Onset Date: 01/06/20 Duration: Constant, Getting Worse Location: Reports: Head (Headache), Upper Extremity, Left. Denies: Face, Neck, Chest, Abdomen, Back, Pelvis, Upper Extremity, Right, Lower Extremity, Left, Lower Extremity, Right, Radiates to Quality: Reports: Same as Previous Episode, Sharp, Throbbing Severity: Moderate Improves with: Reports: None Worsens with: Reports: None Context: Reports: Other (As above). Denies: Sick Contact, Trauma Associated Symptoms: Reports: Headaches. Denies: Confusion, Chest Pain, Cough, Diaphoresis, Fever/Chills, Loss of Appetite, Malaise, Nausea/Vomiting, Rash, Seizure, Shortness of Breath, Syncope, Weakness Treatments [employer]AR: Reports: Acetaminophen Headache Pain Score (Numeric/FACES): 6 Left Shoulder Pain Score (Numeric/FACES): 6 - Related Data Allergies Allergy/AdvReac Type Severity Reaction Status Date / Time amoxicillin trihydrate Allergy Nausea Verified 01/07/20 12:55 [From Augmentin] nickel Allergy Rash Verified 01/07/20 12:55 potassium clavulanate Allergy Nausea Verified 01/07/20 12:55 [From Augmentin] Home Meds: Home Meds Acetaminophen/Diphenhydramine [Tylenol Pm Ex-Strength Caplet] 25 tab PO BEDTIME PRN 11/18/15 [History] Atropine/Diphenoxylate [Lomotil 0.025-2.5 MG] 1 tab PO BID PRN 11/18/15 [History ] Celecoxib [CeleBREX] 200 mg PO DAILY 11/18/15 [History] Esomeprazole Magnesium [Nexium] 40 mg PO DAILY 11/18/15 [History] Eszopiclone [Lunesta] 2 mg PO BEDTIME PRN 11/18/15 [History] Multivitamin with Minerals [Multiple Vitamin] 1 tab PO DAILY 11/18/15 [History] Aspirin [Halfprin] 81 mg PO DAILY 12/08/15 [History] Calcium Carbonate [Calcium] 600 mg PO DAILY 12/08/15 [History] Cholecalciferol (Vitamin D3) [Vitamin D3] 3,000 unit PO DAILY 12/08/15 [History] DULoxetine [Cymbalta] 60 mg PO DAILY 01/27/16 [History] atorvaSTATin [Lipitor] 10 mg PO BEDTIME 01/01/20 [History] Metoprolol Tartrate [Lopressor] 25 mg PO DAILY 01/07/20 [History] Past Medical History HEENT History: Reports: Allergic Rhinitis, Cataract, Hard of Hearing, Impaired Vision. Denies: Glaucoma, Macular Degeneration, Otitis Media, Retinal Detachment Other HEENT History: She wears glasses. Bilateral presbycusis with bilateral hearing aides therapy. Cardiovascular History: Reports: Afib, Heart Failure, High Cholesterol, Other ( See Below). Denies: Aneurysm, Arrhythmia, Blood Clots/VTE/DVT, CAD, Cardiomyopathy, Heart Murmur, Hypertension, OR, PVD, Syncope Other Cardiovascular History: Atrial fibrillation with rapid ventricular response with additional D-dimer elevation with negative workup on 01/01/20 as below. Respiratory History: Reports: Intubation, Previous, Other (See Below). Denies: Asthma, Bronchitis, Recurrent, COPD, Intubation, Difficult, PE, Pneumonia, Recurrent, Pneumothorax, Sleep Apnea, TB Other Respiratory History: Benign right upper lobe pulmonary nodule by CT scan on 01/01/20. Gastrointestinal History: Reports: Chronic Diarrhea, Diverticulosis, GERD, Hemorrhoids, Irritable Bowel Syndrome, Other (See Below). Denies: Celiac Disease, Cholelithiasis, Colon Polyp, Fecal Incontinence, Gastritis, GI Bleed, Hepatitis, Hiatal Hernia, Inflammatory Bowel Disease, Jaundice, Pancreatitis Other Gastrointestinal History: Sigmoid diverticulosis. Genitourinary History: Reports: None. Denies: Acute Renal Failure, Chronic Renal Insuffiency, Renal Calculus, Retention, Urinary, STD, Urinary Incontinence , UTI, Recurrent ERP SPECIALIST History: Reports: Fibroids, , Spontaneous . Denies: Dysfunctional Uterine Bleeding, Endometriosis : 5 Para: 2 LMP (Approximate): Other (See Below) Other ERP SPECIALIST History: Menopause at age 40. Subsequent complete hysterectomy secondary to fibroids at about age 72. SABs 3 in the first trimester with D&Cs as below. Otherwise, Full term without complications during pregnancies or deliveries Musculoskeletal History: Reports: Arthritis, Back Pain, Chronic, Neck Pain, Chronic, Osteoarthritis, Osteoporosis, Other (See Below). Denies: Fracture, Gout, RA, SLE Other Musculoskeletal History: Left popliteal cyst. Neurological History: Reports: Headaches, Chronic, Migraines. Denies: Cerebral Aneurysms, Concussion, CVA, Head Trauma, MS, Neuropathy, Peripheral, Parkinson's , Seizure, TIA, Vertigo Psychiatric History: Reports: Anxiety, Depression. Denies: Abuse, Victim of, ADD, ADHD, Addiction, Psych Hospitalization(s), PTSD, Suicide Attempt, Suicidal Ideation Endocrine/Metabolic History: Reports: Osteopenia, Osteoporosis. Denies: Diabetes, Gestational, Diabetes, Type I, Diabetes, Type II, Diabetes Mellitus, Type 3c, Hypothyroidism, IDDM Hematologic History: Reports: Other (See Below). 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 Immunologic History: Reports: None. Denies: AIDS, HIV, SLE Oncologic (Cancer) History: Reports: None. Denies: Basal Cell Carcinoma, Breast , Cervix, Colon, Hodgkin's Lymphoma, Leukemia, Lung, Lymphoma, Malignant Melanoma, Non-Hodgkin's Lymphoma, Ovarian, Squamous Cell Carcinoma, Uterine Dermatologic History: Reports: None. Denies: Eczema, Psoriasis - Infectious Disease History Infectious Disease History: Reports: Chicken Pox, Measles, Mumps, Pertussis ( Whooping Cough). Denies: C-Difficile, Meningitis, Mononucleosis, MRSA, Rheumatic Fever, Rubella, Scarlet Fever, Shingles, TB, VRE - Past Surgical History Head Surgeries/Procedures: Reports: None HEENT Surgical History: Reports: Cataract Surgery, Oral Surgery, Other (See Below). Denies: Adenoidectomy, Eye Surgery, Laser Surgery, LASIK, Myringotomy w Tube(s), Naso-Sinus Surgery, Tonsillectomy Other HEENT Surgeries/Procedures: Biateral cataract surgery 2013. Multiple teeth extractions. Cardiovascular Surgical History: Reports: None. Denies: Varicose Respiratory Surgical History: Reports: None. Denies: Thoracentesis GI Surgical History: Reports: Appendectomy, Colonoscopy, Other (See Below). Denies: Cholecystectomy, EGD, Hernia, Abdominal, Hernia, Inguinal, Hernia Repair /Other, Polypectomy Other GI Surgeries/Procedures: Appendectomy in April 1958. Hemorrhoidectomy on . Colonoscopy on 12/08/15, 09/06/08, and 11/27/04. Female Surgical History: Reports: Breast Biopsy, D&C, Dilitation & Evacuation , Hysterectomy, Salpingo-Oophorectomy, Other (See Below) Other Female Surgeries/Procedures: Bilateral breast biopsies for benign disease. Complete hysterectomy secondary to uterine fibroid on 11/19/13. D&C 3 secondary to SABs as above. Endocrine Surgical History: Reports: None. Denies: Thyroid Biopsy Neurological Surgical History: Reports: None. Denies: C-Spine, Discectomy, Laminectomy, Lumbar Spine, Sacral Spine, Spinal Fusion, Thoracic Spine, Vertebroplasty Musculoskeletal Surgical History: Reports: Joint Replacement, Shoulder Replacement, Shoulder Surgery, Other (See Below). Denies: Arthroscopic Procedure, Carpal Tunnel, Ganglion Cyst, Hip Replacement, ORIF Other Musculoskeletal Surgeries/Procedures:: Bilateral wrist/hand tendon tendon release. Left shoulder total arthroplasty on 11/19/13 subsequent right total shoulder arthroplasty in 2014. Oncologic Surgical History: Reports: Biopsy of Breast, Other (See Below) Other Oncologic Surgeries/Procedures: As above for benign disease. Dermatological Surgical History: Reports: None - Past Imaging History Past Imaging History: Reports: CAT Scan (Negative CTA of the chest for PE on 12/31.), MRI (MRI of the C-spine on 03/06/10.), Venous Doppler (Negative of the legs bilaterally on 01/01/20.) Social & Family History - Family History HEENT: Reports: None. Denies: Glaucoma, Macular Degeneration, Retinal Detachment Cardiac: Reports: CAD, Hypertension, OR, Other (See Below). Denies: Afib, AICD , Aneurysm, Arrhythmia, Blood Clots/VTE/DVT, Bypass, Cardiomyopathy, Heart Failure, Heart Murmur, High Cholesterol, PVD/COD, Syncope Other Cardiac Family History: Mother with concurrent CVA and acute OR with unsuccessful CABG at age 79. Father with fatal OR at age 77. Sister with fatal OR at age 83. Hypertension in father, sister, and brothers 2. Respiratory: Reports: None. Denies: Asthma, COPD, PE, Pneumothorax, Sleep Apnea GI: Reports: None. Denies: Celiac Disease, Cholelithiasis, Colon Polyps, GERD, GI bleed, Inflammatory Bowel Disease, Irritable Bowel Syndrome, PUD : Reports: Dialysis, Renal Disease/Insufficiency, Other (See Below) Other Family History: Brother with renal failure requiring dialysis fatal at age 73. OBGYN: Reports: Endometriosis, Other (See Below). Denies: Recurrent Spontaneous Other OBGYN Family History: Sister with endometriosis. Musculoskeletal: Reports: Arthritis, Osteoarthritis, Other (See Below). Denies : Gout, RA, SLE Other Musculoskeletal Family History: Sisters 2 with osteoarthritis. Neurological: Reports: CVA, Other (See Below). Denies: Alzheimers Disease, Cerebral Aneurysms, Dementia, Migraines, MS, Parkinson's, Seizure, TIA Other Neurological Family History: Mother with CVA as above. Psychiatric: Reports: None. Denies: Abuse, Victim of, ADD, ADHD, Anxiety, Depression, Psych Hospitalization(s), PTSD, Suicide Attempt Endocrine/Metabolic: Reports: Diabetes, type II, IDDM, Other (See Below). Denies: Diabetes, Gestational, Diabetes, Type I, Diabetes Mellitus, Type 3c, Hypothyroidism Other Endocrine/Metabolic Family History: IDDM in brother from complications at age 47. Hematologic: Reports: None. Denies: SLE Immunologic: Reports: None. Denies: SLE Dermatologic: Reports: None. Denies: Eczema, Psoriasis Oncologic: Reports: Breast, Lymphoma, Metastatic, Other (See Below) Other Oncologic Family History: Mother with history of lymphoma. Sister with fatal metastatic breast cancer at 79. Another sister with unknown type of fatal cancer in her late 70s. - Tobacco Use Smoking Status *Q: Never Smoker Tobacco Use Within Last Twelve Months: No Used Tobacco, but Quit: No Smoking Cessation Information Provided To Patient: No Second Hand Smoke Exposure: No Second Hand Smoke Education Provided: No - Caffeine Use Caffeine Use: Reports: Coffee (2 Cups per day). Denies: Energy Drinks, Soda, Tea - Alcohol Use Alcohol Use History: No Days Per Week of Alcohol Use: 0 Number of Drinks Per Day: 1 Number of Drinks Per Day Comment: Usually beer on holidays. No previous DWIs, problems with alcohol abuse, etc. 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 - Physical Exam Exam: See Below Exam Limited By: No Limitations General Appearance: Alert, WD/WN, No Apparent Distress, Anxious (Moderate) Eye Exam: Bilateral Eye: EOMI, Normal Fundi, Normal Inspection (Patient wearing glasses. No nystagmus), PERRL Ears: Normal External Exam, Normal Canal, Normal TMs, Other (Bilateral presbycusismild) Nose: Normal Inspection, Normal Mucosa, No Blood Throat/Mouth: Normal Inspection, Normal Lips, Normal Teeth (Multiple Missing teeth), Normal Gums, Normal Oropharynx, Normal Voice, No Airway Compromise. No : Dysphagia, Perioral Cyanosis Head Exam: Atraumatic, Normocephalic. No: Facial Tenderness, Sinus Tenderness Neck: Supple, Non-Tender, Full Range of Motion, Carotid Bruit (Bilateral carotid bruitsmild). No: Lymphadenopathy (L), Lymphadenopathy (R), Thyromegaly Respiratory/Chest: No Respiratory Distress, Lungs Clear, Normal Breath Sounds, No Accessory Muscle Use, Chest Non-Tender. No: Pleural Rub, Retractions Cardiovascular: Normal Peripheral Pulses, No Edema, No Gallop, No JVD, No Murmur , No Rub, Bradycardia (Occasional borderline), Extra Beats (Occasional as below) . No: Gallop/S3, Gallop/S4, Friction Rub GI/Abdominal: Normal Bowel Sounds, Soft, Non-Tender, No Organomegaly, No Distention, No Abnormal Bruit, No Mass. No: Guarding (Female) Exam: Deferred Rectal (Female) Exam: Deferred Neuro Exam (Abbreviated): Alert, Oriented, CN II-XII Intact, Normal Cognition, Normal Gait, No Motor/Sensory Deficits Back Exam: Normal Inspection, Full Range of Motion. No: CVA Tenderness (L), CVA Tenderness (R), Muscle Spasm Extremities: Normal Inspection, Normal Range of Motion, Non-Tender, No Pedal Edema, Normal Capillary Refill. No: Juan's Sign Psychiatric: Anxious (Moderate), Depressed Mood (Borderline) Skin Exam: Warm, Dry, Intact, Normal Color, No Rash. No: Diaphoretic, Wound/ Incision Course - Vital Signs Last Recorded V/S: Last Vital Signs Temp 36.3 C 01/07/20 12:40 Pulse 58 L 01/07/20 12:55 Resp 12 01/07/20 12:55 BP 132/64 01/07/20 12:55 Pulse Ox 97 01/07/20 12:55 Vital Signs - 24 hr 01/07/20 01/07/20 12:40 12:55 Temperature [ 36.3 C Temporal] Pulse, 60 58 L Peripheral [ Right Pulse Oximetry] Respiratory 10 L 12 Rate Blood Pressure 145/69 H 132/64 [Left Upper Arm ] O2 Sat by Pulse 98 97 Oximetry - Orders/Labs/Meds Orders: Active Orders 24 hr Category Date Time Status Cardiac Monitoring [RC] . DIRECTED Care 01/07/20 12:52 Active Peripheral IV Care [RC] . DIRECTED Care 01/07/20 12:52 Active Shoulder Comp Lt [CR] Stat Exams 01/07/20 12:55 Taken Obtain Past Medical Record [OM.PC] Routine Oth 01/07/20 12:51 Active Peripheral IV Insertion Adult [OM.PC] Routine Oth 01/07/20 12:52 Ordered Labs: None Meds: Medications Discontinued Medications Generic Name Dose Route Start Last Admin Trade Name Quita PRN Reason Stop Dose Admin Ketorolac Tromethamine 30 mg 01/07/20 12:52 Toradol IVPUSH 01/07/20 12:53 ONETIME ONE Ketorolac Tromethamine 30 mg 01/07/20 12:58 01/07/20 13:06 Toradol IM 01/07/20 12:59 30 mg ONETIME ONE Administration Methylprednisolone Acetate 80 mg 01/07/20 12:52 01/07/20 13:06 Depo-Medrol IM 01/07/20 12:53 80 mg ONETIME ONE Administration Sodium Chloride 10 ml 01/07/20 12:52 Saline Flush FLUSH ASDIRECTED PRN Keep Vein Open - Radiology Interpretation Free Text/Narrative:: Kiln Remover shows normal sinus rhythm with average heart rate in the 60s with occasional mild bradycardia in the high 50s. Additional occasional PACs noted. X-rays of the left shoulder, complete, shows evidence of status post arthroplasty with no evidence of loosening, fracture, etc. Moderate osteophytic changes. Departure - Departure Time of Disposition: 13:40 Disposition: Home, Self-Care 01 Clinical Impression: Atrial fibrillation with RVR, Peptic reflux disease, Osteoarthritis, Hyperlipidemia, PAC (premature atrial contraction), Headache, CHF (congestive heart failure), Mixed anxiety depressive disorder - Discharge Information *PRESCRIPTION DRUG MONITORING PROGRAM REVIEWED*: Not Applicable *COPY OF PRESCRIPTION DRUG MONITORING REPORT IN PATIENT JANIS: Not Applicable Instructions: Headache and Arthritis Referrals: Deepika Kamara NP [Primary Care Provider] - Forms: ED Department Discharge Additional Instructions: 1. Follow up with your regular provider in 10-14 days as needed, if symptoms persist. Bring these discharge instructions with you to that visit. 2. Tylenol 650 mg by mouth every 4 hours when necessary as directed. 3. BenGay or equivalent, heating pad, and/or ice packs as directed. 4. Ice packs to head and neck, dark and quiet room, etc. as directed until headache resolves. 5. Immediately after this visit verify that your cellular telephone's voicemail has been activated and is empty. Also verify that your home telephone 's answering machine is operating properly and has space to receive messages. Note that it is sometimes necessary for us to be able to contact you at a later date to discuss your medical care. 6. Please remember that we are ALWAYS here for you and want to answer any questions you may have. Feel free to call the hospital any time and we call you back BRINDA. Sepsis Event Note - Focused Exam Vital Signs: Vital Signs Temp Pulse Resp BP Pulse Ox 01/07/20 12:55 58 L 12 132/64 97 01/07/20 12:40 36.3 C 60 10 L 145/69 H 98 Date Exam was Performed: 01/07/20 Time Exam was Performed: 15:41 - Problem List & Annotations (1) Osteoarthritis SNOMED Code(s): 308374119 Code(s): M19.90 - UNSPECIFIED OSTEOARTHRITIS, UNSPECIFIED SITE Status: Chronic Priority: High Annotation/Comment:: Moderate left shoulder pain with status post bilateral shoulder arthroplasties. IM Toradol and IM Depo- Medrol given. Continue Celebrex and Tylenol therapy as per discharge instructions. Qualifiers: Osteoarthritis location: multiple joints Osteoarthritis type: primary Qualified Code(s): M15.0 - Primary generalized (osteo)arthritis (2) Headache SNOMED Code(s): 04598513 Code(s): R51 - HEADACHE Status: Acute Priority: High Onset Date: ~01/05 Annotation/Comment:: IM Toradol as above. Otherwise symptomatic relief as per discharge instructions. Note significant current stressors secondary to her 's illnesses and swing bed care as above. She was extensively counseled on the importance of her own special personal time without stressors. Qualifiers: Headache type: tension-type Headache chronicity pattern: acute headache Intractability: not intractable Qualified Code(s): G44.209 - Tension-type headache, unspecified, not intractable (3) Atrial fibrillation with RVR SNOMED Code(s): 374251535510266 Code(s): I48.91 - UNSPECIFIED ATRIAL FIBRILLATION Status: Acute Priority : High Onset Date: 01/01/20 Annotation/Comment:: No evidence of reoccurrence of atrial fibrillation after reinitiation of low-dose Toprol-XL therapy after recent hospital discharge. Patient does have an echocardiogram scheduled in this facility on 01/11 with a Cardiolite stress test scheduled with me in this facility on 01/13. No chest pain or anginal type symptoms. No change in medical therapy for now with only borderline occasional bradycardia and PACs during today's evaluation. (4) CHF (congestive heart failure) SNOMED Code(s): 74500064 Code(s): I50.9 - HEART FAILURE, UNSPECIFIED Status: Chronic Priority: High Onset Date: 01/01/20 Annotation/Comment:: No clinical evidence of CHF. Echocardiogram scheduled as above. Lasix apparently not needed after discharge. Close follow-up by regular providers. Qualifiers: Heart failure type: unspecified Heart failure chronicity: acute Qualified Code(s): I50.9 - Heart failure, unspecified (5) PAC (premature atrial contraction) SNOMED Code(s): 947370929 Code(s): I49.1 - ATRIAL PREMATURE DEPOLARIZATION Status: Acute Priority: Medium Onset Date: 01/07/20 Annotation/Comment:: Newly diagnosed. Observe for now. Continue low-dose Toprol XL therapy. Consider event monitor depending on her clinical course. (6) Hyperlipidemia SNOMED Code(s): 47958973 Code(s): E78.5 - HYPERLIPIDEMIA, UNSPECIFIED Status: Chronic Priority: Medium Annotation/Comment:: Lipid panel and glycosylated hemoglobin were conducted during recent hospitalization. Continue medical therapy with close follow-up by her regular provider. Qualifiers: Hyperlipidemia type: unspecified Qualified Code(s): E78.5 - Hyperlipidemia , unspecified (7) Peptic reflux disease SNOMED Code(s): 671947876 Code(s): K21.9 - GASTRO-ESOPHAGEAL REFLUX DISEASE WITHOUT ESOPHAGITIS Status: Chronic Priority: Medium Annotation/Comment:: Stable by history with current medical therapy. (8) Mixed anxiety depressive disorder SNOMED Code(s): 519396950 Code(s): F41.8 - OTHER SPECIFIED ANXIETY DISORDERS Status: Chronic Priority: Medium Annotation/Comment:: As above. Moderate control based on today's exam. Emotional support provided. Close follow-up by regular provider. - Problem List Review Problem List Initiated/Reviewed/Updated: Yes - My Orders Last 24 Hours: My Active Orders 01/07/20 12:51 Obtain Past Medical Record [OM.PC] Routine 01/07/20 12:52 Cardiac Monitoring [RC] . DIRECTED Peripheral IV Care [RC] . DIRECTED Peripheral IV Insertion Adult [OM.PC] Routine 01/07/20 12:55 Shoulder Comp Lt [CR] Stat - Assessment/Plan Last 24 Hours: My Active Orders 01/07/20 12:51 Obtain Past Medical Record [OM.PC] Routine 01/07/20 12:52 Cardiac Monitoring [RC] . DIRECTED Peripheral IV Care [RC] . DIRECTED Peripheral IV Insertion Adult [OM.PC] Routine 01/07/20 12:55 Shoulder Comp Lt [CR] Stat Assessment:: As above Plan: As above. Extensive precautions were given to the patient, who is in agreement with the treatment plan. See Patient Instructions for further treatment and plan. Her daughter, Rita, was updated concerning above evaluation, treatment plan, etc.
[2020-01-07] MEDS: methylPREDNISolone Acetate 80 MG/ML SDV IM ONE (13:06)
[2020-01-07] MEDS: Ketorolac 30 MG/ML SDV IM ONE (13:06)
[2020-01-07 14:30] VITALS: BP 132/64; PULSE 58
== END 2020-01-07 13:40 | disposition home or self-care (01) ==
LOC: LL.ED 12:40
DX: R51 Headache (principal); I48.91 Unspecified atrial fibrillation; M19.90 Unspecified osteoarthritis, unspecified site; K21.9 Gastro-esophageal reflux disease without esophagitis; E78.5 Hyperlipidemia, unspecified; I49.1 Atrial premature depolarization; I50.9 Heart failure, unspecified; F41.8 Other specified anxiety disorders; Z88.0 Allergy status to penicillin; Z79.82 Long term (current) use of aspirin; Z79.899 Other long term (current) drug therapy
CPT/HCPCS: 73030; 96372; 99284; J1040; J1885

== ENCOUNTER 2020-02-09 14:21 | Emergency (ER) | payer MEDICARE, BC ==
[2020-02-09 14:55] LABS: PTT,PARTIAL THROMBOPLSTIN TIME 22.3 SEC (24.5-32.8)
[2020-02-09 15:06] LABS: CHLORIDE,CL 105 mmol/L (98-107); SODIUM,NA 142 mmol/L (136-145)
--- NOTE | 2020-02-09 15:15 | EDM.PDOC ---
ED HPI GENERAL MEDICAL PROBLEM - General Chief Complaint: Neuro Symptoms/Deficits Stated Complaint: stroke code Time Seen by Provider: 02/09/20 14:32 Source of Information: Reports: Patient History Limitations: Reports: No Limitations - History of Present Illness INITIAL COMMENTS - FREE TEXT/NARRATIVE: Patient brought in to ER by daughter after having sudden speech problems that started around 90 min prior to presentation. Patient was on phone with friend when this started. Patient felt like her words were not coming out normally. Daughter, who is pharmacist at our facility, agrees that patient's speech is not normal. Patient is pausing while formulating sentences. Does not mix up words/no word salad noted. Mild slurring of speech. No focal weakness or facial asymmetry noted. No history of previous stroke. Has had recent issues with new onset intermittent Afib. Has been evaluated by [facility]. Has not been started on any anticoagulation. Does take daily ASA. No recent med changes/injuries/illnesses otherwise. - Related Data Allergies Allergy/AdvReac Type Severity Reaction Status Date / Time amoxicillin trihydrate Allergy Nausea Verified 02/09/20 14:39 [From Augmentin] nickel Allergy Rash Verified 02/09/20 14:39 potassium clavulanate Allergy Nausea Verified 02/09/20 14:39 [From Augmentin] Home Meds: Home Meds Acetaminophen/Diphenhydramine [Tylenol Pm Ex-Strength Caplet] 25 tab PO BEDTIME PRN 11/18/15 [History] Atropine/Diphenoxylate [Lomotil 0.025-2.5 MG] 1 tab PO BID PRN 11/18/15 [History ] Celecoxib [CeleBREX] 200 mg PO DAILY 11/18/15 [History] Esomeprazole Magnesium [Nexium] 40 mg PO DAILY 11/18/15 [History] Eszopiclone [Lunesta] 2 mg PO BEDTIME PRN 11/18/15 [History] Multivitamin with Minerals [Multiple Vitamin] 1 tab PO DAILY 11/18/15 [History] Aspirin [Halfprin] 81 mg PO DAILY 12/08/15 [History] Calcium Carbonate [Calcium] 600 mg PO DAILY 12/08/15 [History] Cholecalciferol (Vitamin D3) [Vitamin D3] 3,000 unit PO DAILY 12/08/15 [History] DULoxetine [Cymbalta] 60 mg PO DAILY 01/27/16 [History] atorvaSTATin [Lipitor] 10 mg PO BEDTIME 01/01/20 [History] Metoprolol Tartrate [Lopressor] 25 mg PO DAILY 01/07/20 [History] Past Medical History HEENT History: Reports: Allergic Rhinitis, Cataract, Hard of Hearing, Impaired Vision. Denies: Glaucoma, Macular Degeneration, Otitis Media, Retinal Detachment Other HEENT History: She wears glasses. Bilateral presbycusis with bilateral hearing aides therapy. Cardiovascular History: Reports: Afib, Heart Failure, High Cholesterol, Other ( See Below). Denies: Aneurysm, Arrhythmia, Blood Clots/VTE/DVT, CAD, Cardiomyopathy, Heart Murmur, Hypertension, DC, PVD, Syncope Other Cardiovascular History: Atrial fibrillation with rapid ventricular response with additional D-dimer elevation with negative workup on 01/01/20 as below. Respiratory History: Reports: Intubation, Previous, Other (See Below). Denies: Asthma, Bronchitis, Recurrent, COPD, Intubation, Difficult, PE, Pneumonia, Recurrent, Pneumothorax, Sleep Apnea, TB Other Respiratory History: Benign right upper lobe pulmonary nodule by CT scan on 01/01/20. Gastrointestinal History: Reports: Chronic Diarrhea, Diverticulosis, GERD, Hemorrhoids, Irritable Bowel Syndrome, Other (See Below). Denies: Celiac Disease, Cholelithiasis, Colon Polyp, Fecal Incontinence, Gastritis, GI Bleed, Hepatitis, Hiatal Hernia, Inflammatory Bowel Disease, Jaundice, Pancreatitis Other Gastrointestinal History: Sigmoid diverticulosis. Genitourinary History: Reports: None. Denies: Acute Renal Failure, Chronic Renal Insuffiency, Renal Calculus, Retention, Urinary, STD, Urinary Incontinence , UTI, Recurrent GREASE PACKER History: Reports: Fibroids, , Spontaneous . Denies: Dysfunctional Uterine Bleeding, Endometriosis Other GREASE PACKER History: Menopause at age 40. Subsequent complete hysterectomy secondary to fibroids at about age 72. SABs 3 in the first trimester with D&Cs as below. Otherwise, Full term without complications during pregnancies or deliveries Musculoskeletal History: Reports: Arthritis, Back Pain, Chronic, Neck Pain, Chronic, Osteoarthritis, Osteoporosis, Other (See Below). Denies: Fracture, Gout, RA, SLE Other Musculoskeletal History: Left popliteal cyst. Neurological History: Reports: Headaches, Chronic, Migraines. Denies: Cerebral Aneurysms, Concussion, CVA, Head Trauma, MS, Neuropathy, Peripheral, Parkinson's , Seizure, TIA, Vertigo Psychiatric History: Reports: Anxiety, Depression. Denies: Abuse, Victim of, ADD, ADHD, Addiction, Psych Hospitalization(s), PTSD, Suicide Attempt, Suicidal Ideation Endocrine/Metabolic History: Reports: Osteopenia, Osteoporosis. Denies: Diabetes, Gestational, Diabetes, Type I, Diabetes, Type II, Diabetes Mellitus, Type 3c, Hypothyroidism, IDDM Hematologic History: Reports: Other (See Below). 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 Immunologic History: Reports: None. Denies: AIDS, HIV, SLE Oncologic (Cancer) History: Reports: None. Denies: Basal Cell Carcinoma, Breast , Cervix, Colon, Hodgkin's Lymphoma, Leukemia, Lung, Lymphoma, Malignant Melanoma, Non-Hodgkin's Lymphoma, Ovarian, Squamous Cell Carcinoma, Uterine Dermatologic History: Reports: None. Denies: Eczema, Psoriasis - Infectious Disease History Infectious Disease History: Reports: Chicken Pox, Measles, Mumps, Pertussis ( Whooping Cough). Denies: C-Difficile, Meningitis, Mononucleosis, MRSA, Rheumatic Fever, Rubella, Scarlet Fever, Shingles, TB, VRE - Past Surgical History Head Surgeries/Procedures: Reports: None HEENT Surgical History: Reports: Cataract Surgery, Oral Surgery, Other (See Below). Denies: Adenoidectomy, Eye Surgery, Laser Surgery, LASIK, Myringotomy w Tube(s), Naso-Sinus Surgery, Tonsillectomy Other HEENT Surgeries/Procedures: Biateral cataract surgery 2013. Multiple teeth extractions. Cardiovascular Surgical History: Reports: None. Denies: Varicose Respiratory Surgical History: Reports: None. Denies: Thoracentesis GI Surgical History: Reports: Appendectomy, Colonoscopy, Other (See Below). Denies: Cholecystectomy, EGD, Hernia, Abdominal, Hernia, Inguinal, Hernia Repair /Other, Polypectomy Other GI Surgeries/Procedures: Appendectomy in April 1958. Hemorrhoidectomy on . Colonoscopy on 12/08/15, 09/06/08, and 11/27/04. Female Surgical History: Reports: Breast Biopsy, D&C, Dilitation & Evacuation , Hysterectomy, Salpingo-Oophorectomy, Other (See Below) Other Female Surgeries/Procedures: Bilateral breast biopsies for benign disease. Complete hysterectomy secondary to uterine fibroid on 11/19/13. D&C 3 secondary to SABs as above. Endocrine Surgical History: Reports: None. Denies: Thyroid Biopsy Neurological Surgical History: Reports: None. Denies: C-Spine, Discectomy, Laminectomy, Lumbar Spine, Sacral Spine, Spinal Fusion, Thoracic Spine, Vertebroplasty Musculoskeletal Surgical History: Reports: Joint Replacement, Shoulder Replacement, Shoulder Surgery, Other (See Below). Denies: Arthroscopic Procedure, Carpal Tunnel, Ganglion Cyst, Hip Replacement, ORIF Other Musculoskeletal Surgeries/Procedures:: Bilateral wrist/hand tendon tendon release. Left shoulder total arthroplasty on 11/19/13 subsequent right total shoulder arthroplasty in 2015. Oncologic Surgical History: Reports: Biopsy of Breast, Other (See Below) Other Oncologic Surgeries/Procedures: As above for benign disease. Dermatological Surgical History: Reports: None - Past Imaging History Past Imaging History: Reports: CAT Scan (Negative CTA of the chest for PE on 12/31.), MRI (MRI of the C-spine on 03/06/10.), Venous Doppler (Negative of the legs bilaterally on 01/01/20.) Social & Family History - Family History HEENT: Reports: None. Denies: Glaucoma, Macular Degeneration, Retinal Detachment Cardiac: Reports: CAD, Hypertension, DC, Other (See Below). Denies: Afib, AICD , Aneurysm, Arrhythmia, Blood Clots/VTE/DVT, Bypass, Cardiomyopathy, Heart Failure, Heart Murmur, High Cholesterol, PVD/COD, Syncope Other Cardiac Family History: Mother with concurrent CVA and acute DC with unsuccessful CABG at age 79. Father with fatal DC at age 77. Sister with fatal DC at age 83. Hypertension in father, sister, and brothers 2. Respiratory: Reports: None. Denies: Asthma, COPD, PE, Pneumothorax, Sleep Apnea GI: Reports: None. Denies: Celiac Disease, Cholelithiasis, Colon Polyps, GERD, GI bleed, Inflammatory Bowel Disease, Irritable Bowel Syndrome, PUD : Reports: Dialysis, Renal Disease/Insufficiency, Other (See Below) Other Family History: Brother with renal failure requiring dialysis fatal at age 73. OBGYN: Reports: Endometriosis, Other (See Below). Denies: Recurrent Spontaneous Other OBGYN Family History: Sister with endometriosis. Musculoskeletal: Reports: Arthritis, Osteoarthritis, Other (See Below). Denies : Gout, RA, SLE Other Musculoskeletal Family History: Sisters 2 with osteoarthritis. Neurological: Reports: CVA, Other (See Below). Denies: Alzheimers Disease, Cerebral Aneurysms, Dementia, Migraines, MS, Parkinson's, Seizure, TIA Other Neurological Family History: Mother with CVA as above. Psychiatric: Reports: None. Denies: Abuse, Victim of, ADD, ADHD, Anxiety, Depression, Psych Hospitalization(s), PTSD, Suicide Attempt Endocrine/Metabolic: Reports: Diabetes, type II, IDDM, Other (See Below). Denies: Diabetes, Gestational, Diabetes, Type I, Diabetes Mellitus, Type 3c, Hypothyroidism Other Endocrine/Metabolic Family History: IDDM in brother from complications at age 47. Hematologic: Reports: None. Denies: SLE Immunologic: Reports: None. Denies: SLE Dermatologic: Reports: None. Denies: Eczema, Psoriasis Oncologic: Reports: Breast, Lymphoma, Metastatic, Other (See Below) Other Oncologic Family History: Mother with history of lymphoma. Sister with fatal metastatic breast cancer at 79. Another sister with unknown type of fatal cancer in her late 70s. - Caffeine Use Caffeine Use: Reports: Coffee (2 Cups per day). 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 Denies: Dizziness, Headache, Numbness, Paresthesia, Pre -Existing Deficit, Seizure, Syncope, Tingling, Tremors, Weakness, Gait Disturbance Psychiatric: Reports: No Symptoms Hematologic/Lymphatic: Reports: No Symptoms ED EXAM, GENERAL - Physical Exam Exam: See Below Exam Limited By: No Limitations General Appearance: Alert, WD/WN, No Apparent Distress Eye Exam: Bilateral Eye: EOMI, PERRL Ears: Hearing Grossly Normal Nose: No: Nasal Deformity, Nasal Swelling, Nasal Drainage Throat/Mouth: Normal Lips, Normal Voice, No Airway Compromise Head: Atraumatic, Normocephalic Neck: Normal Inspection, Supple, Non-Tender, Full Range of Motion Respiratory/Chest: No Respiratory Distress, Lungs Clear, Normal Breath Sounds, No Accessory Muscle Use, Chest Non-Tender Cardiovascular: Normal Peripheral Pulses, No Edema, No Murmur, Bradycardia GI/Abdominal: Soft, Non-Tender, No Distention (Female) Exam: Deferred Rectal (Female) Exam: Deferred Back Exam: Normal Inspection. No: CVA Tenderness (L), CVA Tenderness (R), Muscle Spasm, Paraspinal Tenderness, Vertebral Tenderness Extremities: Normal Inspection, Normal Range of Motion, Non-Tender, No Pedal Edema, Normal Capillary Refill Neurological: Alert, CN II-XII Intact, Other (Equal tone and strength bilaterally upper and lower limbs. No focal numbness reported by patient during exam. Visual howard appear intact. ) Psychiatric: Normal Affect, Normal Mood Skin Exam: Warm, Dry, Intact, Normal Color EKG INTERPRETATION EKG Date: 02/09/20 Time: 14:37 Rhythm: Other (Sinus Bradycardia) Rate (Beats/Min): 45 [place]: Normal P-Wave: Present QRS: Normal ST-T: Normal QT: Normal Comparison: Other: (Previous EKG early December rate in 60s) Course - Orders/Labs/Meds Orders: Active Orders 24 hr Category Date Time Status Blood Glucose Check, Bedside [RC] ONETIME Care 02/09/20 14:22 Active EKG Documentation Completion [RC] ASDIRECTED Care 02/09/20 14:34 Active Chest 1V Frontal [CR] Stat Exams 02/09/20 14:29 Ordered Head wo Cont [CT] Stat Exams 02/09/20 14:23 Taken PROLACTIN [REF] Stat Lab 02/09/20 14:35 Received Labs: Laboratory Tests 02/09/20 02/09/20 02/09/20 Range/Units 14:35 14:35 14:35 WBC 10.8 H (4.0-10.2) K/uL RBC 4.20 (3.77-5.09) M/uL Hgb 12.6 (11.7-15.5) g/dL Hct 39.1 (34.0-46.0) % MCV 93.1 (84.0-98.0) fL MCH 30.0 (28.2-33.3) pg MCHC 32.2 (31.7-36.0) g/dL RDW 14.3 H (11.2-14.1) % Plt Count 236 (150-350) K/uL Neut % (Auto) 74.7 (45.0-80.0) % Lymph % (Auto) 18.8 (10.0-50.0) % [place] % (Auto) 5.2 (2.0-14.0) % Eos % (Auto) 1.1 (0.0-5.0) % Baso % (Auto) 0.2 (0.0-2.0) % Neut # (Auto) 8.06 H (1.40-7.00) K/uL Lymph # (Auto) 2.03 (0.50-3.50) K/uL [place] # (Auto) 0.56 (0.00-1.00) K/uL Eos # (Auto) 0.12 (0.00-0.50) K/uL Baso # (Auto) 0.02 (0.00-0.20) K/uL PT (9.5-12.0) SEC INR APTT (24.5-32.8) SEC D-Dimer, Quantitative 1920 H (0-400) ng/mL Sodium 142 (136-145) mmol/L Potassium 3.9 (3.5-5.1) mmol/L Chloride 105 (98-107) mmol/L Carbon Dioxide 28.3 (21.0-32.0) mmol/L BUN 15 (7-18) mg/dL Creatinine 0.93 (0.51-1.17) mg/dL Est Cr Clr Drug Dosing TNP Estimated GFR (MDRD) 58 mL/min Glucose 95 (74-106) mg/dL Calcium 9.7 (8.5-10.1) mg/dL Magnesium 2.1 (1.8-2.4) mg/dL Total Bilirubin 0.3 (0.2-1.0) mg/dL AST 25 (15-37) U/L ALT 47 (12-78) U/L Alkaline Phosphatase 87 (46-116) IU/L Creatine Kinase 136 (26-308) U/L Creatine Kinase Index 1.2 (0.0-2.5) % CK-MB (CK-2) 1.60 (0.00-3.60) ng/mL Troponin I 0.000 (0.000-0.056) ng/mL NT-Pro-B Natriuret Pep 618 H (0-125) pg/mL Total Protein 7.6 (6.4-8.2) g/dL Albumin 4.5 (3.4-5.0) g/dL 02/09/20 Range/Units 14:35 WBC (4.0-10.2) K/uL RBC (3.77-5.09) M/uL Hgb (11.7-15.5) g/dL Hct (34.0-46.0) % MCV (84.0-98.0) fL MCH (28.2-33.3) pg MCHC (31.7-36.0) g/dL RDW (11.2-14.1) % Plt Count (150-350) K/uL Neut % (Auto) (45.0-80.0) % Lymph % (Auto) (10.0-50.0) % [place] % (Auto) (2.0-14.0) % Eos % (Auto) (0.0-5.0) % Baso % (Auto) (0.0-2.0) % Neut # (Auto) (1.40-7.00) K/uL Lymph # (Auto) (0.50-3.50) K/uL [place] # (Auto) (0.00-1.00) K/uL Eos # (Auto) (0.00-0.50) K/uL Baso # (Auto) (0.00-0.20) K/uL PT 10.1 (9.5-12.0) SEC INR 1.0 APTT 22.3 L (24.5-32.8) SEC D-Dimer, Quantitative (0-400) ng/mL Sodium (136-145) mmol/L Potassium (3.5-5.1) mmol/L Chloride (98-107) mmol/L Carbon Dioxide (21.0-32.0) mmol/L BUN (7-18) mg/dL Creatinine (0.51-1.17) mg/dL Est Cr Clr Drug Dosing Estimated GFR (MDRD) mL/min Glucose (74-106) mg/dL Calcium (8.5-10.1) mg/dL Magnesium (1.8-2.4) mg/dL Total Bilirubin (0.2-1.0) mg/dL AST (15-37) U/L ALT (12-78) U/L Alkaline Phosphatase (46-116) IU/L Creatine Kinase (26-308) U/L Creatine Kinase Index (0.0-2.5) % CK-MB (CK-2) (0.00-3.60) ng/mL Troponin I (0.000-0.056) ng/mL NT-Pro-B Natriuret Pep (0-125) pg/mL Total Protein (6.4-8.2) g/dL Albumin (3.4-5.0) g/dL Meds: Medications Discontinued Medications Generic Name Dose Route Start Last Admin Trade Name Freq PRN Reason Stop Dose Admin Alteplase, Recombinant [id number] mg 02/09/20 15:04 Activase 0.9 mg/kg (51.4377 mg) 02/09/20 15:05 IV .BOLUS ONE Alteplase, Recombinant [id number] mg 02/09/20 15:10 Activase 0.9 mg/kg (51.4377 mg) 02/09/20 15:11 IV ASDIRECTED ONE - Radiology Interpretation Free Text/Narrative:: Radiology noted persistent small focus of either atelectasis vs infiltrate within lingula that has been noted on previous films CT Results Date: 02/09/20 CT Results Time: 14:46 (No acute intracranial processes noted) - Re-Assessments/Exams Free Text/Narrative Re-Assessment/Exam: 02/09/20 15:27 Stroke Scale performed by nursing staff and score of 3 obtained. Mild slurring of words, did not know month, mild aphagia scored 1 each. Patient had complained of feeling like her left foot was not quite working right when she was home. This improved by time she was in ER. Able to transfer, no focal weakness identified. CT obtained immediately, no focal acute findings per Radiology. Call placed to [facility] and patient discussed with Dr.Sachdeca. Ultimately it was recommended that the patient be given TPA if no contraindications and then be transferred to [facility] for further workup. No contraindications identified. Potential risks of TPA discussed with patient and her daughter. They ultimately agreed to TPA administration. TPA ordered. Patient transferred to [facility] by EMS. Departure - Departure Time of Disposition: 15:17 Disposition: DC/Tfer to Acute Hospital 02 Condition: Good Clinical Impression: Stroke-like symptoms, Bradycardia, Elevated d-dimer - Discharge Information *PRESCRIPTION DRUG MONITORING PROGRAM REVIEWED*: Not Applicable *COPY OF PRESCRIPTION DRUG MONITORING REPORT IN PATIENT JANIS: Not Applicable Referrals: Deepika Kamara NP [Primary Care Provider] - Forms: ED Department Discharge - My Orders Last 24 Hours: My Active Orders 02/09/20 14:22 Blood Glucose Check, Bedside [RC] ONETIME 02/09/20 14:23 Head wo Cont [CT] Stat 02/09/20 14:29 Chest 1V Frontal [CR] Stat 02/09/20 14:34 EKG Documentation Completion [RC] ASDIRECTED 02/09/20 14:35 PROLACTIN [REF] Stat - Assessment/Plan Last 24 Hours: My Active Orders 02/09/20 14:22 Blood Glucose Check, Bedside [RC] ONETIME 02/09/20 14:23 Head wo Cont [CT] Stat 02/09/20 14:29 Chest 1V Frontal [CR] Stat 02/09/20 14:34 EKG Documentation Completion [RC] ASDIRECTED 02/09/20 14:35 PROLACTIN [REF] Stat
--- OUTSIDE RECORDS SUMMARY | 2020-02-12 07:50 | XMSREPORT ---
:1940 Author Organization [facility] [employer] [facility] Address [address] [place] [address] Care Team Providers Name Role Phone Deepika Kamara APRN-MADAY Primary Care Provider Deepika Kamara APRN-MADAY Attributed Provider Reason for Referral (Routine) Status Reason Specialty Diagnoses / Procedures Referred By Contact Referred To Contact [facility] [address] [place] [address] Reason for Visit Reason Comments Slurred Speech Per nursing report. At 1250 today patient was talking on the phone with friend and started to have slurred speech and was aphagic. NIHS was 3. Did receive TPA bolus 5.2 ml and gtts started at 1533. CT was negative. 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 CENTER [address] Glen Davila MD [address] [place] [address] [phone] (HCC) [address] Fritz Timmons MD [address] [place] [address] [phone] (Fax) [place] [address] Jimmy Castro MD [address] [place] [address] [phone] Allergies Active Allergy Reactions Severity Noted Date Comments Augmentin Nausea and Vomiting 11/12/2013 Nickel Rash 11/12/2013 documented as of this encounter (statuses as of 02/11/2020) Medications Medication Sig Dispensed Refills Start End Status Date Date esomeprazole Take 40 mg by 0 Active (NEXIUM) 40 mg mouth 1 time a day capsule in the morning. eszopiclone Take 2 mg by mouth 0 Active (LUNESTA) 2 mg At bedtime as tablet needed for insomnia. diphenhydrAMINE-ac Take 1 tablet by 0 Active etaminophen mouth At bedtime (TYLENOL PM) as needed for 25-500 mg tablet insomnia. Take as directed vitamin D3, Take 2,000 Units 0 Active cholecalciferol, by mouth 1 time 2000 unit capsule per day. diphenoxylate-atro Take 2 tablets by 1 09/07/20 Active pine (LOMOTIL) mouth 4 times a 15 2.5-0.025 mg day as needed for tablet diarrhea Specialty Vitamins Take 1 tablet by 0 08/21/20 Active Products (CENTRUM mouth 1 time per 11 PERFORMANCE) TABS day ALPRAZolam (XANAX) Take 1 tablet 20 tablet 0 09/30/20 Active 0.25 mg (0.25 mg) by mouth 19 tabletIndications: Every 8 hours as Anxiety needed for anxiety for up to 20 doses DULoxetine Take 1 capsule (60 90 capsule 4 09/30/20 Active (CYMBALTA) 60 mg mg) by mouth 1 19 020 capsuleIndications time per day : Anxiety calcium 600 MG Take 600 mg by 0 Active TABS tablet mouth 1 time per day fluticasone [place] 1 spray into 3 Bottle 4 01/13/20 Active (FLONASE) 50 each nostril 2 20 021 mcg/spray nasal times a day sprayIndications: Seasonal allergic rhinitis, unspecified trigger atorvaSTATin Take 1 tablet (20 30 tablet 0 02/12/20 Active (LIPITOR) 20 mg mg) by mouth 1 20 tabletIndications: time per day Cerebrovascular accident (CVA), unspecified mechanism (HCC) aspirin 325 mg Take 1 tablet (325 5 tablet 0 02/12/20 Active tabletIndications: mg) by mouth 1 20 020 Cerebrovascular time per day for 5 accident (CVA), days unspecified mechanism (HCC) metoprolol Take 1 tablet (25 60 tablet 0 02/11/20 Active tartrate mg) by mouth 2 20 (LOPRESSOR) 25 mg times a day tabletIndications: Atrial fibrillation, unspecified type (HCC) warfarin Anticoagulation 30 tablet 0 02/11/20 Active (COUMADIN) 5 mg Clinic Managed Pt tabletIndications: Take as directed. Atrial (Insurance fibrillation, Purposes Only: unspecified type 5-7.5mg Daily Dose (HCC) Range) Call [phone] with ?s atorvaSTATin TAKE 1 TABLET BY 90 tablet 3 11/17/19 Discontinued (LIPITOR) 10 mg MOUTH AT BEDTIME 20 020 (Stop Taking at tabletIndications: Discharge) Hyperlipidemia, unspecified hyperlipidemia type celecoxib TAKE 1 CAPSULE BY 90 capsule 2 12/16/19 Discontinued (CELEBREX) 200 mg MOUTH ONCE A DAY 20 020 (Stop Taking at capsuleIndications Discharge) : Tendinopathy of left gluteus medius metoprolol Take 0.5 tablets 30 tablet 1 01/28/20 Discontinued tartrate (12.5 mg) by mouth 20 020 (Stop Taking at (LOPRESSOR) 25 mg 2 times a day Discharge) tabletIndications: Irregular heartbeat documented as of this encounter (statuses as of 02/11/2020) Active Problems 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/2020 Atrial fibrillation 02/11/2020 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 Anxiety 10/04/2019 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 Other insomnia 10/04/2019 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 documented as of this encounter (statuses as of 02/11/2020) Immunizations Name Administration Dates Next Due Influenza Trivalent w/preserv 08/11/2014, 09/04/2006, 10/18/2004 FLU VACCINE HIGH DOSE 65YR+(Fluzone) 08/06/2019, 08/11/2018 Influenza Vaccine 10/15/2016 Influenza Vaccine,unspecified 08/06/2017, 10/15/2016, 08/31/2016, 08/29/2015, 08/11/2014, 09/04/2006, 10/18/2004 Pneumococcal Conj PCV13 08/30/2015 Pneumococcal Polysaccharide PPSV23 08/31/2016 TDAP 07/28/2014 Td 08/14/2001 documented as of this encounter Social History Tobacco Use Types Packs/Day Years Used Date Never Smoker Smokeless Tobacco: Never Used Alcohol Use Drinks/Week oz/Week Comments Yes rare Sex Assigned at Date Recorded Not on file Job Start Date Occupation Industry Not on file Not on file Not on file Travel History Travel Start Travel End No recent travel history available. documented as of this encounter Last Filed Vital Signs Vital Sign Reading Time Taken Comments Blood Pressure 135/78 02/11/2020 12:00 PM CDT Pulse 63 02/11/2020 12:00 PM CDT Temperature 36.6 C (97.9 F) 02/11/2020 12:00 PM CDT Respiratory Rate 13 02/11/2020 12:00 PM CDT Oxygen Saturation 98% 02/11/2020 12:00 PM CDT Inhaled Oxygen Concentration - - Weight 60.5 kg (133 lb 6.1 oz) 02/09/2020 4:54 PM CDT Height 157.5 cm (5' 2") 02/09/2020 4:54 PM CDT Body Mass Index 24.4 02/09/2020 4:54 PM CDT documented in this encounter Functional Status Functional Status Response Date of Assessment Is the person deaf or does he/she have serious difficulty No 02/09/2020 hearing? Is this person blind or does he/she have difficulty No 02/09/2020 seeing even when wearing glasses? Do you have difficulty with walking, balance, climbing No 02/09/2020 stairs, or had a fall in the last 3 months? Does the patient have difficulty dressing or bathing? No 02/11/2020 Because of a physical, mental, or emotional condition; No 02/11/2020 does this person have difficulty doing errands alone such as visiting a doctor's office or shopping? Cognitive Status Response Date of Assessment Because of a physical, mental, or emotional condition; No 02/11/2020 does this person have serious difficulty concentrating, remembering, or making decisions? documented as of this encounter Discharge Summaries Not on filedocumented in this encounter Discharge Instructions Prabha Amin RN - 02/11/2020 Pt will be on aspirin till INR is therapeutic. Once INR is therapeutic, pt can be off aspirin Stroke / TIA Discharge Instructions Medications Medications are an important part of reducing your risk of stroke and transient ischemic attack (TIA) always take medications as directed; do not skip doses. If you are unable to take your medications, please contact your provider. See schedule of discharge medications. If you are on a blood thinner (anticoagulant), call your provider if any signs of bleeding (bruising, blood in urine, stool, vomit, or sputum). Please contact your provider before beginning or resuming herbal and/or vitamin supplements. Review of Risk Factors and Interventions Smoking? NA Advised to quit? N/A Do not smoke or use tobacco. Ask family members to stop smoking. Talk to your provider about using the nicotine patch or other medication. Join a smoking cessation group. High Blood Pressure? No Your BP: 135/78 Goal BP is less than 140/90 mmHg or as recommended by your provider Monitor your Blood Pressure Lower your blood pressure by losing weight, exercising, and eating less salt. High Cholesterol? No Your current LDL (bad cholesterol) No results found for: LDLDIR Lab Results Component Value Date LDL 95 02/10/2020 Your goal LDL (bad cholesterol) level is less than 70. Review your cholesterol levels with your provider. Follow a low fat and low cholesterol diet. Diabetes? No HgbA1c value Lab Results Component Value Date HGBA1C 5.7 (H) 02/09/2020 Your goal is to keep your HgbA1c less than 7 mg/dL. Follow your diet and exercise plan as directed. Keeping your blood sugars under control will lower your risk for another stroke / transient ischemic attack (TIA). Exercise? Yes Exercise as directed. Staying active (walking or riding a stationary bike) for 30 minutes 5 times a week could reduce the risk of stroke. Alcohol Use? Yes No more than 1 - 2 alcoholic drinks a day. It is very important that you keep all your appointments. Call 911 immediately if you are experiencing any of these common warning signs of stroke / TIA Sudden numbness or weakness of the face, arm or leg, especially on one side of the body. Sudden confusion, trouble speaking or understanding speech. Sudden trouble seeing in one or both eyes. Sudden trouble walking, dizziness, loss of balance or coordination. Sudden severe headache with no known cause. For more information about stroke contact [place] [employer] [facility], , www.strokeassociation.org National Stroke Association, , www.stroke.org National [place] of Neurological Disorders and Stroke, , www. ninds.nih.gov AttachmentsThe following attachments cannot be sent through Care Everywhere.* Aphasia: What is Aphasia? (Cymraes)*Aphasia: What You Can Do When You Have Aphasia (Cymraes)*Taking Warfarin (Coumadin) (Cymraes)Blood Thinners ( Anticoagulants), Using (Cymraes)Living with Atrial Fibrillation: Preventing Stroke (Cymraes)Stroke, Discharge Instructions for (Cymraes)Types of Stroke ( Cymraes)Stroke, Effects on the Brain and Body (Cymraes)documented in this encounter Medications at Time of Discharge Medication Sig Dispensed Refills Start Date End Date atorvaSTATin (LIPITOR) Take 1 tablet (20 mg) 30 tablet 0 02/12/2020 20 mg by mouth 1 time per tabletIndications: day Cerebrovascular accident (CVA), unspecified mechanism (HCC) aspirin 325 mg Take 1 tablet (325 mg) 5 tablet 0 02/12/2020 02/17/2020 tabletIndications: by mouth 1 time per Cerebrovascular day for 5 days accident (CVA), unspecified mechanism (HCC) metoprolol tartrate Take 1 tablet (25 mg) 60 tablet 0 02/11/2020 (LOPRESSOR) 25 mg by mouth 2 times a day tabletIndications: Atrial fibrillation, unspecified type (HCC) warfarin (COUMADIN) 5 Anticoagulation Clinic 30 tablet 0 02/11/20202020 mg tabletIndications: Managed Pt Take as Atrial fibrillation, directed. (Insurance unspecified type (HCC) Purposes Only: 5-7.5mg Daily Dose Range) Call [phone] with ?s fluticasone (FLONASE) [place] 1 spray into 3 Bottle 4 01/13/2020 01/17/2021 50 mcg/spray nasal each nostril 2 times a sprayIndications: day Seasonal allergic rhinitis, unspecified trigger calcium 600 MG TABS Take 600 mg by mouth 1 0 tablet time per day ALPRAZolam (XANAX) Take 1 tablet (0.25 20 tablet 0 09/30/2019 0.25 mg mg) by mouth Every 8 tabletIndications: hours as needed for Anxiety anxiety for up to 20 doses DULoxetine (CYMBALTA) Take 1 capsule (60 mg) 90 capsule 4 09/30/201910/04 60 mg by mouth 1 time per capsuleIndications: day Anxiety Specialty Vitamins Take 1 tablet by mouth 0 08/21/2011 Products (CENTRUM 1 time per day PERFORMANCE) TABS diphenoxylate-atropine Take 2 tablets by 1 09/07/2015 (LOMOTIL) 2.5-0.025 mg mouth 4 times a day as tablet needed for diarrhea esomeprazole (NEXIUM) Take 40 mg by mouth 1 0 40 mg capsule time a day in the morning. eszopiclone (LUNESTA) Take 2 mg by mouth At 0 2 mg tablet bedtime as needed for insomnia. diphenhydrAMINE-acetam Take 1 tablet by mouth 0 inophen (TYLENOL PM) At bedtime as needed 25-500 mg tablet for insomnia. Take as directed vitamin D3, Take 2,000 Units by 0 cholecalciferol, 2000 mouth 1 time per day. unit capsule documented as of this encounter Progress Notes Bandar Choudhury, PHARM STUDENT - 02/11/2020 12:25 PM CDTProvided education to patient regarding warfarin therapy. 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 Warfarin educational handout to be provided by nursing provider. Percy Ivey MD - 02/10/2020 10:49 PM CDTNeurovascular Note 24 hr MRI brain post tpa reviewed- small multifocal infarcts in the RACA, LMCA and LPCA territory.No evidence of hemorrhage. Event monitor hooked up on 01/21/20- reported today - showed A.Flutter Recommendations - Ok to start Aspirin. - [id number] score of 5. Would recommend starting anticoagulation tomorrow given small volume of infarction, no evidence of hemorrhage and new infarcts in LMCA territory even post tpa. Coumadin vs NOAC's based on patient preference. - Once anticoagulation is started,Aspirin can be discontinued from the stroke standpoint, unless there is any alternative indication to continue. - Can be transferred out of ICU. Percy Gaona MD Vascular and Interventional Neurology Pager: [phone] Cell: [phone] ANTVivien Melita, SHANNAN-MEETING PLANNER - 02/10/2020 11:02 AM CDT NEUROLOGY DAILY PROGRESS NOTE Deanna Fernandes is a 79yr old female admitted on 02/09/2020. SUBJECTIVE Patient continues to have mild word finding difficulties. Reviewed previous records. Afib captured on ECG 01/01/20. Patient is right handed. OBJECTIVE Current Vital Signs Temp: 97.7 F (36.5 C) BP: 139/91 Pulse: 56 O2 Device: Room Air Resp: 14 Pain Ratin (out of 10) Weight: 60.5 kg (133 lb 6.1 oz) SpO2: 98 % Vitals Min/Max Last 24 Hours Vital Signs Min/Max (last 24 hours) Flowsheet Row Name Min Max Temp 97.4 F (36.3 C) 98.3 F (36.8 C) BP: Systolic 93 167 BP: Diastolic 47 114 Pulse 48 62 Resp 9 21 SpO2 98 % 100 % MAP (mm Hg) 72 mm Hg 130 mm Hg Medications Current Facility-Administered Medications Medication Dose Route Frequency atorvaSTATin (LIPITOR) tablet 20 mg 20 mg Oral Daily sodium chloride 0.9% flush (adult) 10 mL 10 mL IV 2 times a day and prn sodium chloride 0.9% flush (adult) 10 mL 10 mL IV 2 times a day and prn bisacodyl (DULCOLAX) suppository 10 mg 10 mg Rectal 1 time a day prn ondansetron (ZOFRAN) injection solution 4 mg 4 mg IV Every 4 hours prn haloperidol lactate (HALDOL) injection solution 2.5 mg 2.5 mg IV Every 6 hours prn acetaminophen (TYLENOL) tablet 650 mg 650 mg Oral Every 6 hours prn Or acetaminophen (TYLENOL) suppository 650 mg 650 mg Rectal Every 6 hours prn labetalol (NORMODYNE;TRANDATE) IV solution 10-40 mg 10-40 mg IV Every 10 minutes prn DULoxetine (CYMBALTA) capsule 60 mg 60 mg Oral daily omeprazole (priLOSEC) capsule 20 mg 20 mg Oral Every morning fluticasone (FLONASE) 50 mcg/spray 1 spray Each nostril 2 times a day vitamin D3 (cholecalciferol) tablet 2,000 Units 2,000 Units Oral daily calcium carbonate tablet 500 mg 500 mg Oral daily ALPRAZolam (XANAX) tablet 0.25 mg 0.25 mg Oral Every 8 hours prn Physical Exam NIH Stroke Scale 1a. Level of Consciousness (LOC) General 0=Alert 1b. LOC Questions: Ask patient: What month is it? How old are you? 0=Answers both correctly 1c. LOC Commands: Ask patient: Open and close your eyes. Squeeze and release your hand. 0=Obeys both correctly 2. Best Gaze (Only horizontal eye movements are tested) 0=Normal 3. Visual Field Testin=Partial hemianopia (including quadrantanopia) (right upper quad) 4. Facial Paresis: Ask patient to show teeth, raise eyebrows, and close eyes tightly. (by words orpantomime) 0=Normal symmetrical movement 5a. Motor Functions Arm Right: 0=Normal - able to hold arm at 45 degrees for 10 seconds without drift 5b. Motor Functions Arm Left: 0=Normal - able to hold arm at 45 degrees for 10 seconds without drift 6a. Motor Functions Leg Right: 0=Normal - holds leg at 30 degrees for 5 seconds 6b. Motor Functions Leg Left: 0=Normal - holds leg at 30 degrees for 5 seconds 7. Limb Ataxia: Nnrrlh-rkkz-tvahef and heel-roberson (score only if out of proportion to weakness) 0=No ataxia 8. Sensory: Pinprick to test arms, legs, trunk and face. Compare side to side. Use noxious stimulus in obtunded or aphasic patient. Do not test on hands or feet. 0=Normal 9. Best Language: Describe picture, name items, read sentence. 1=Mild to moderate aphasia 10. Dysarthria: Read several words. 0=Normal articulation 11. Extinction and Inattention: 0=Normal attention to both sides for vision sensation and attention TOTAL NIHSS=2 Diagnostics and Labs Relevant diagnostic, laboratory and radiological studies have been reviewed in the Electronic Medical Record. MRI Brain 02/09/20: Small infarcts right BECK and MCA territories, and left STEAMFITTER APPRENTICE territory. CTA Head & Neck 02/09/20: ?short segment distal right BECK stenosis vs occlusion. Otherwise no significant stenosis. TTE: pending Lab Results Component Value Date CHOLESTEROL 164 02/10/2020 CHOLESTEROL 173 09/30/2019 TRIGLYCERIDE 95 02/10/2020 TRIGLYCERIDE 105 09/30/2019 HDLCHOL 50 02/10/2020 HDLCHOL 51 09/30/2019 LDL 95 02/10/2020 LDL 101 (H) 09/30/2019 Lab Results Component Value Date HGBA1C 5.7 (H) 02/09/2020 ASSESSMENT & PLAN Scattered infarcts in right BECK and MCA territories, and left STEAMFITTER APPRENTICE territory. Etiology most likely paroxysmal afib. -MRI Brain 24 hours post TPA to evaluate for size and location of infarct, and any evidence of hemorrhage. -Aspirin 325 mg daily if MRI shows no evidence of hemorrhage. -Will determine timing of initiation of anticoagulation depending on size of stroke and any evidenceof hemorrhage. -Daughter will check on potential out of pocket cost of Eliquis. If Eliquis is unafforadable, then recommend Coumadin. -Keep SPB<180/105 for first 24 hours post TPA, then permissive hypertension up to 220/120 with reduction of BP by 15% each day. -Telemetry. -LDL 95: High intensity statin not needed as etiology of stroke is cardioembolic and LDL <100. Continue Lipitor 20 mg daily. -Neuro checks and NIHSS per TPA protocol. -Continue PT/OT/ST. -Will likely be too good for inpatient rehab. -DVT Prophylaxis: SCDs. -OK to transfer out of ICU if MRI brain stable. Case was discussed with Dr. Gaona who agrees with above impression and plan. Total time spent: >35 minutes, with >50% spent reviewing the chart, counseling patient and family, and discussing test results and treatment plan with the patient and family. Discussed above withpatient's daughter on the telephone. ESTEBAN Rebolledo, 02/10/2020 Neurology Consult Service [facility], [place], [place] Fritz Raphael MD - 02/10/2020 9:20 AM CDT Neuro-critical care progress note chief complaint - speech difficulties. History of present illness: Patient is a 79-year-old female with a known history of atrial fibrillation, not on anticoagulation,last normal around 12:50 PM when she was talking to a friend today who noticed some word finding difficulty/mild expressive aphasia. Patient was taken to the nearest emergency room. NIH stroke scale of 3. CT brain was negative for hemorrhage. received TPA at 3:05 PM , sent to [facility] . On arrival patient's speech was mostly fluent except for mild anomia. There was no other deficits. CTA headand neck was negative for large vessel occlusion or flow-limiting stenosis. Apparently patient was seen by cardiology on 01/21/2020 because of paroxysmal A. fib which happened during a primary care visit. Patient was started on metoprolol but wasn't started on anticoagulation. Her EKG had showed sinus rhythm. The retirement village manager was planning a 14 day event monitor Patient seen and examined this morning Hemodynamically stable, mild expressive aphasia. 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) Fatigue GERD (gastroesophageal reflux disease) Hypercholesteremia Hyperlipidemia Insomnia Osteoarthritis Pain bilateral shoulder pain Past Surgical History: Procedure Laterality Date APPENDECTOMY APPENDECTOMY BREAST BIOPSY bilateral BREAST SURGERY bilateral breast biopsies BUNIONECTOMY bilateral DILATION & CURETTAGE DX & OR THERAPEUTIC (NONOBSTETRICAL) Dilation & curettage x2 EYE SURGERY HAND SURGERY bilateral wrist HEMORRHOID SURGERY HYSTERECTOMY JOINT REPLACEMENT 11/19/13 lef TSA SHOULDER ARTHROPLASTY Left 11/19/2013 Procedure: LEFT TOTAL SHOULDER ARTHROPLASTY; cortisone injection to right shoulder signed for on consent.; Surgeon: Walker Figueroa MD SHOULDER ARTHROPLASTY Right 01/17/2015 Procedure: RIGHT TOTAL SHOULDER ARTHROPLASTY;; Surgeon: Walker Figueroa MD SURGERY jaw surgery TOTAL HIP Left 10/31/2016 Procedure: LEFT HIP OPEN ABDUCTOR REPAIR;; Surgeon: Cachorro Somers MD Prior to Admission medications Medication Sig Start Date End Date Taking? Authorizing Provider metoprolol tartrate (LOPRESSOR) 25 mg tablet Take 0.5 tablets (12.5 mg) by mouth 2 times a day 01/28/20 04/27/20 Deepika Kamara APRN-CNP fluticasone (FLONASE) 50 mcg/spray nasal spray [place] 1 spray into each nostril 2 times a day / Deepika Kamara APRN-CNP calcium 600 MG TABS tablet Take 600 mg by mouth 1 time per day Provider, Abstract celecoxib (CELEBREX) 200 mg capsule TAKE 1 CAPSULE BY MOUTH ONCE A DAY 12/16/19 Deepika Kamara APRN-CNP atorvaSTATin (LIPITOR) 10 mg tablet TAKE 1 TABLET BY MOUTH AT BEDTIME 11/17/19 Deepika Kamara APRN-CNP ALPRAZolam (XANAX) 0.25 mg tablet Take 1 tablet (0.25 mg) by mouth Every 8 hours as needed for anxiety for up to 20 doses 09/30/19 Deepika Kamara APRN- CNP DULoxetine (CYMBALTA) 60 mg capsule Take 1 capsule (60 mg) by mouth 1 time per day 09/30/19 10/04/20 Deepika Kamara APRN-CNP Specialty Vitamins Products (CENTRUM PERFORMANCE) TABS Take 1 tablet by mouth 1 time per day 08/21/11 Provider, Abstract diphenoxylate-atropine (LOMOTIL) 2.5-0.025 mg tablet Take 2 tablets by mouth 4 times a day as neededfor diarrhea 09/07/15 Provider, Abstract esomeprazole (NEXIUM) 40 mg capsule Take 40 mg by mouth 1 time a day in the morning. Provider, Abstract eszopiclone (LUNESTA) 2 mg tablet Take 2 mg by mouth At bedtime as needed for insomnia. Provider,Abstract diphenhydrAMINE-acetaminophen (TYLENOL PM) 25-500 mg tablet Take 1 tablet by mouth At bedtime as needed for insomnia. Take as directed Provider, Abstract vitamin D3, cholecalciferol, 2000 unit capsule Take 2,000 Units by mouth 1 time per day. Provider, Abstract Allergies Allergen Reactions Augmentin Nausea and Vomiting Nickel Rash Social History Tobacco Use Smoking status: Never Smoker Smokeless tobacco: Never Used Substance Use Topics Alcohol use: Yes Comment: rare Family History Problem Relation Age of Onset Heart Disease Mother Diabetes Father Heart Disease Father Diabetes Brother Stroke Brother Hypertension Son Stroke Son Review of Systems: Remainder of the systems were reviewed and were negative PHYSICAL EXAMINATION: Temp: 97.7 F (36.5 C) BP: 153/65 Pulse: 55 O2 Device: Room Air Resp: 15 Pain Ratin (out of 10) Weight: 60.5 kg (133 lb 6.1 oz) SpO2: 98 % Maximum Temperatures (last 24 hours) Temperature Maximum Max Temp 98.3 F (36.8 C) PRIVACY ANALYST - mild expressive aphasia, no facial weakness, Alert, awake, oriented x3, moves all extremities to commands. Possible right-sided peripheral vision deficit HEENT: Pupils equal and reactive; conjunctiva and lids unremarkable. Sclera anicteric, Examination of oropharynx reveals no oral lesions, mucositis or thrush. Neck: Supple. No masses or thyromegaly. Trachea midline. Resp: Respiratory effort normal. No rales, rubs or rhonchi to auscultation. CV: Regular rhythm, normal rate. No murmurs or extra sounds auscultated. Abdomen: Soft, non-tender, non-distended. No guarding, no rigidity, no rebound. No hepatomegaly, no splenomegaly. No masses palpated. Ext: No lower extremity edema or varicosities, pulses positive Skin: No rashes, lesions, or subcutaneous nodules, no petechiae. LABS: Lab Results Component Value Date WBC 6.7 02/10/2020 RBC 3.86 02/10/2020 HEMOGLOBIN 11.5 02/10/2020 HEMATOCRIT 35.9 02/10/2020 MCV 93.0 02/10/2020 MCH 29.8 02/10/2020 MCHC 32.0 02/10/2020 RDW 13.9 01/01/2020 PLTCOUNT 175 02/10/2020 NEUTROPCT 68.1 01/01/2020 LYMPHSPCT 19.9 01/01/2020 MONOSPCT 10.7 01/01/2020 EOSPCT 1.0 01/01/2020 BASOPHILPCT 0.3 01/01/2020 Lab Results Component Value Date GLUCOSE 75 02/10/2020 BUN 13 02/10/2020 CREATSERUM 0.83 02/10/2020 BCRATIO 15.7 02/10/2020 NA 141 02/10/2020 POTASSIUM 4.0 02/10/2020 CL 110 02/10/2020 CO2 24 02/10/2020 CA 9.0 02/10/2020 PROTEINTOTAL 6.0 02/10/2020 ALBUMIN 3.9 02/10/2020 ALKPHOS 66 02/10/2020 AST 21 02/10/2020 ALT 24 02/10/2020 BILITOTAL 0.4 02/10/2020 Relevant diagnostic, laboratory and radiological studies have been reviewed in the Electronic Medical Record. PROBLEM LIST: Active Hospital Problems Stroke (cerebrum) (HCC) Atrial fibrillation ASSESSMENT & PLAN Hemodynamics: Hemodynamically stable, no inotropic support bilateral strokes, small, likely embolic PRIVACY ANALYST: Status post TPA, day 1, MRI as today showing Improving neuro exam MRI brain at 24 hours Nicholas Blood pressure less than 180 Permissive hypertension No antiplatelets for 24 hours Neuro checks as per protocol Neurovascular is following IV fluids Echocardiogram today Cardiovascular: Known history of atrial fibrillation not on anticoagulation Hold metoprolol Telemetry monitoring LDL 95, start Lipitor Echo pending Pulmonary: stable, monitor airways, breathing. If needed nebs. Infectious Diseases: Afebrile with no leukocytosis. Renal/Fluids/Elecrlytes and Metabolic: Stable kidney functions, will monitor urine output, electrolytes and kidney functions Hematology: Stable hemoglobin, hematocrit and platelets, normal coagulation profile GI: No active issues Nutrition: Regular diet Endocrine: Blood sugar is monitored as per critical care protocol and patient is on insulin sliding scale Health Maintenance: No indication for stress ulcer prophylaxis and SCD for DVT prophylaxis. Likely transfer out of ICU at 24 hours from tpa Total time of service: 35 minutes > 50% in counseling/coordination of care. Fritz Saldana MD 02/10/2020 9:23 AM Beeper [id number] documented in this encounter Plan of Treatment Date Type Specialty Care Team Description 02/18/2020 Office Visit Family [facility] Deepika Kamara, DATA TECHNICIAN-MEETING PLANNER [address] [place] [address] [phone] 04/11/2020 Office Visit Neurosurgery Percy Gaona MD [address] [place] [address] Name Type Priority Associated Diagnoses Order Schedule COMPLETE BLOOD COUNT Lab Routine Early AM draw for labs WITHOUT DIFFERENTIAL for 3 Days starting 02/10/2020 until 02/12/2020, 2 completed Name Type Priority Associated Diagnoses Order Schedule HOSPITAL DISCHARGE Referral Routine Once for 1 Occurrences WARFARIN ANTICOAG starting 02/11/2020 ORDER until 02/11/2020 documented as of this encounter Implants Implanted Type Area Reproduction Machine Loader Device Shelf Model / Identifier Expiration Serial / Date Lot Cmnt Bone Simplex P 1/2 Dose N 6188-1-010 Ca10/Ea - Sn/A Ortho Left: NATHALIE 01/24/2015 6188-1-001 / Implanted: Qty: 1 on 11/19/2013 by Walker Figueroa MD at [facility] Other SHOULDER N/A / [id number] Cmnt Bone Simplex P 1/2 Dose N 6188-1-010 Ca10/Ea - Sn/A Ortho Right: NATHALIE 03/27/2017 6188-1-001 / Implanted: Qty: 1 on 01/17/2015 by Walker Figueroa MD at [facility] Other SHOULDER N/A / [id number] Biocomp Corkscrew Dbl 5.5mm N [id number] Bx5/Ea - Sn/A Ortho Left: HIP ARTHREX 08/27/2017 [id number] / Implanted: Qty: 1 on 10/31/2016 by Cachorro Somers MD at [facility] Other N/A / [id number] Description:Verified by and surgical team Biocomp Corkscrew Dbl 5.5mm N [id number] Bx5/Ea - Sn/A Ortho Other Left: HIP ARTHREX 06/27/2018 [id number] / Implanted: Qty: 1 on 10/31/2016 by Cachorro Somers MD at [facility] N/A / [id number] Description:Verified by and surgial team Biocomp Swivelockvent4.75x19.1 N Ar-2324bcc Bx5/Ea - Sn/A Ortho Other Left: HIP ARTHREX 06/27/2018 [id number] / Implanted: Qty: 1 on 10/31/2016 by Cachorro Somers MD at [facility] N/A / [id number] Description:Verified by and surgical team Biocomp Swivelockvent4.75x19.1 N Ar-2324bcc Bx5/Ea - Sn/A Ortho Other Left: HIP ARTHREX 03/27/2018 [id number] / Implanted: Qty: 1 on 10/31/2016 by Cachorro Somers MD at [facility] N/A / [id number] Description:Verified by and surgical team Shldr Glenoid Cofield2 Peg Sm N [id number] Ea - Sn/A Total Jt Left: SHOULDER WISEMAN & 08/26/2023 [id number] / Implanted: Qty: 1 on 11/19/2013 by Walker Figueroa MD at [facility] Shoulder NEPHEW N/A / [id number] Shldr Hum Stem Cofield2 10mm N [id number] Ea - Sn/A Total Jt Left: SHOULDER WISEMAN & 06/26/2023 [id number] / Implanted: Qty: 1 on 11/19/2013 by Walker Figueroa MD at [facility] Shoulder NEPHEW N/A / [id number] Shldr Humhead Cofield2 18x40 N [id number] Ea - Sn/A Total Jt Left: SHOULDER WISEMAN & 09/26/2022 [id number] / Implanted: Qty: 1 on 11/19/2013 by Walker Figueroa MD at [facility] Shoulder NEPHEW N/A / [id number] Shldr Glenoid Peg Cortiloc S30 N [id number] Ea - [id number] Total Jt Right: SHOULDER TORNIER 05/27/2019 [id number] / Implanted: Qty: 1 on 01/17/2015 by Walker Figueroa MD at [facility] Shoulder [id number] / N/A Description:Implants verified with surgeon. Shldr Humr Stem Std 137.5d 78 N [id number] Ea - [id number] Total Jt Shoulder Right: SHOULDER TORNIER 12/25/2018 [id number] / Implanted: Qty: 1 on 01/17/2015 by Walker Figueroa MD at [facility] [id number] / N/A Shldr Humr Head Stb High 45x17 N [id number] Ea - [id number] Total Jt Shoulder Right: SHOULDER TORNIER 12/25/2018 [id number] / Implanted: Qty: 1 on 01/17/2015 by Walker Figueroa MD at [facility] [id number] / N/A documented as of this encounter Procedures Procedure Name Priority Date/Time Associated Comments Diagnosis PROTIME/INR Routine 02/11/2020 12:40 Results for this PM CDT procedure are in the results section. COMPLETE BLOOD COUNT Routine 02/11/2020 5:10 Results for this WITHOUT DIFFERENTIAL AM CDT procedure are in the results section. TROPONIN I STAT 02/10/2020 6:46 Results for this PM CDT procedure are in the results section. EKG STAT 02/10/2020 6:08 Results for this PM CDT procedure are in the results section. MRI BRAIN WITHOUT Routine 02/10/2020 3:52 Results for this CONTRAST PM CDT procedure are in the results section. ECHO ADULT COMPLETE Routine 02/10/2020 11:28 Results for this AM CDT procedure are in the results section. COMPLETE BLOOD COUNT Routine 02/10/2020 4:57 Results for this WITHOUT DIFFERENTIAL AM CDT procedure are in the results section. LIPID PANEL Routine 02/10/2020 4:56 Results for this AM CDT procedure are in the results section. COMPREHENSIVE Routine 02/10/2020 4:56 Results for this METABOLIC PANEL AM CDT procedure are in the results section. MRI BRAIN WITHOUT STAT 02/09/2020 6:55 Results for this CONTRAST PM CDT procedure are in the results section. CTA NECK STAT 02/09/2020 5:12 Results for this PM CDT procedure are in the results section. CTA HEAD STAT 02/09/2020 5:10 Results for this PM CDT procedure are in the results section. CRITICAL CARE Routine 02/09/2020 4:56 Results for this PM CDT procedure are in the results section. COLLECT AND HOLD SST STAT 02/09/2020 4:55 Results for this TOP TUBE PM CDT procedure are in the results section. COLLECT AND HOLD HUBER STAT 02/09/2020 4:55 Results for this (NAFL) TOP TUBE PM CDT procedure are in the results section. COLLECT AND HOLD STAT 02/09/2020 4:55 Results for this POSSIBLE CROSSMATCH PM CDT procedure are in TUBE the results section. GLUCOSE BY METER, POCT STAT 02/09/2020 4:55 Results for this PM CDT procedure are in the results section. PTT STAT 02/09/2020 4:55 Results for this PM CDT procedure are in the results section. PROTIME/INR STAT 02/09/2020 4:55 Results for this PM CDT procedure are in the results section. COMPLETE BLOOD COUNT STAT 02/09/2020 4:55 Results for this WITHOUT DIFFERENTIAL PM CDT procedure are in the results section. GLYCATED HEMOGLOBIN STAT 02/09/2020 4:55 Results for this PM CDT procedure are in the results section. TROPONIN I STAT 02/09/2020 4:55 Results for this PM CDT procedure are in the results section. BASIC METABOLIC PANEL STAT 02/09/2020 4:55 Results for this PM CDT procedure are in the results section. EKG STAT 02/09/2020 4:53 Results for this PM CDT procedure are in the results section. documented in this encounter Results PROTIME/INR (02/11/2020 12:40 PM CDT) Protime 13.6 12.0 - 14.[address] INR 1.1 (L) 2.0 - 3.[address] Specimen Blood Narrative Performed At Normal INR reference range (patients not on oral [address] anticoagulants)0.9-1.1. INR Standard Intensity=(2.0 - 3.0) INR Higher Intensity=(2.5 - 3.5) Performing Organization Address City/State/Zipcode Phone Number [address] [place] [address] COMPLETE BLOOD COUNT WITHOUT DIFFERENTIAL (02/11/2020 5:10 AM CDT) WBC 6.5 4.0 - 11.0 K/uL [address] RBC 4.52 3.80 - 5.30 M/uL [address] Hemoglobin 13.3 11.5 - 15.8 g/dL [address] Hematocrit 41.4 35.0 - 45.0 % [address] MCV 91.6 80.0 - 98.[address] MCH 29.4 25.5 - 34.[address] MCHC 32.1 31.5 - 36.5 g/dL [address] RDW-CV 14.1 11.5 - 15.5 % [address] RDW-SD 47.7 35.5 - 50.[address] Platelet Count 212 140 - 400 K/uL [address] MPV 10.4 8.5 - 12.[address] Specimen Blood Performing Organization Address [facility] Phone Number [address] [place] [phone] TROPONIN I (02/10/2020 6:46 PM CDT) Troponin I 0.006 0.000 - 0.028 ng/mL [address] Specimen Blood Performing Organization Address [facility] Phone Number [address] [address] EKG (02/10/2020 6:08 PM CDT)Only the most recent of2 resultswithin the time period is included. EKG [facility] Atrial fibrillation with rapid ventricular response Marked ST abnormality, possible inferior subendocardial injury Marked ST abnormality, possible anterior subendocardial injury Abnormal ECG When compared with ECG of 10-FEB-2020 18:07, AF new Ventricular Rate: 139 BPM Atrial Rate: 150 BPM QRS Duration: 76 ms Q-T Interval: 348 ms QTc Calculation(Bazett): 529 ms Calculated R [place]: 63 degrees Calculated T [place]: -95 degrees Specimen Narrative Performed At Performing Organization Address [facility] Phone Number [facility] BRAIN WITHOUT CONTRAST (02/10/2020 3:52 PM CDT)Only the most recent of2 resultswithin the time period is included. Specimen Narrative Performed At [facility] Patient Name: DEANNA FERNANDES Date of :1940 Procedure: MRI BRAIN WITHOUT CONTRAST Date of Service: 02/10/2020 EXAM: MRI BRAIN WITHOUT CONTRAST INDICATION: Mild aphasia. S/P 24 hr tpa COMPARISON: 02/09/2020 TECHNIQUE: Multiplanar, Multisequence MRI of the brain was performed without IV contrast FINDING: Redemonstrated are small acute infarcts involving multiple vascular territories including the right BECK territory in the medial right frontal lobe which is grossly unchanged. A few new foci of acute infarct are seen within the medial left occipital lobe and posterior left temporal lobe as well as the left parietal lobe there is associated T2/FLAIR hyperintensity. The ventricles are normal in size. No mass effect or midline shift. No parenchymal hemorrhage. There is mild chronic microvascular change. The vascular flow voids are preserved. Midline structures are normal. Stable erosive changes at the dens. No extra-axial fluid collection. Orbits demonstrate previous bilateral lens surgery. Paranasal sinuses and mastoids are unremarkable. Abnormal FLAIR hyperintensity in the left transverse sinus is noted. The sinus was patent on the CTA performed yesterday. IMPRESSION: 1. Small infarcts are noted in multiple vascular territories as seen on previous exam. Findings are suggestive of an embolic source. There are new small acute infarcts seen within the left parietal lobe, left occipital lobe, and posterior left temporal lobe. Stable right BECK infarct. 2. No evidence for hemorrhagic transformation. Finalized by: José Miguel Gonzalez MD on 02/10/2020 4:03 PM CDT Patient/Procedure Information: [facility] MRN/EMILEE: [id number] Order Number: [id number] Accession Number: [id number] Ordering Provider: PERCY GAONA Authorizing Provider: PERCY GAONA Procedure Note Interface, Radiantres - 02/10/2020 4:05 PM CDT Patient Name: DEANNA FERNANDES Date of : 1940 Procedure: MRI BRAIN WITHOUT CONTRAST Date of Service: 02/10/2020 EXAM: MRI BRAIN WITHOUT CONTRAST INDICATION: Mild aphasia. S/P 24 hr tpa COMPARISON: 02/09/2020 TECHNIQUE: Multiplanar, Multisequence MRI of the brain was performed without IV contrast FINDING: Redemonstrated are small acute infarcts involving multiple vascular territories including the right BECK territory in the medial right frontal lobe which is grossly unchanged. A few new foci of acute infarct are seen within the medial left occipital lobe and posterior left temporal lobe as well as the left parietal lobe there is associated T2/FLAIR hyperintensity. The ventricles are normal in size. No mass effect or midline shift. No parenchymal hemorrhage. There is mild chronic microvascular change. The vascular flow voids are preserved. Midline structures are normal. Stable erosive changes at the dens. No extra-axial fluid collection. Orbits demonstrate previous bilateral lens surgery. Paranasal sinuses and mastoids are unremarkable. Abnormal FLAIR hyperintensity in the left transverse sinus is noted. The sinus was patent on the CTA performed yesterday. IMPRESSION: 1. Small infarcts are noted in multiple vascular territories as seen on previous exam. Findings are suggestive of an embolic source. There are new small acute infarcts seen within the left parietal lobe, left occipital lobe, and posterior left temporal lobe. Stable right BECK infarct. 2. No evidence for hemorrhagic transformation. Finalized by: José Miguel Gonzalez MD on 02/10/2020 4:03 PM CDT Patient/Procedure Information: [facility] MRN/EMILEE: [id number] Order Number: [id number] Accession Number: [id number] Ordering Provider: PERCY GAONA Authorizing Provider: PERCY GAONA Performing Organization Address City/State/Zipcode Phone Number [id number] ECHO ADULT COMPLETE (02/10/2020 11:28 AM CDT) Specimen Narrative Performed At [facility] Patient: DEANNA FERNANDES MR#:[id number] Exam Date:02/10/2020 Transthoracic Echocardiogram [facility] [address] [facility], [id number] BP: 164/68 mmHg HR:66 bpm : 1940Exam Location: Bedside Height:62.00 "( 157.5 cm) Age: 79 year(s)Patient Room: 538 Weight:133 lbs.( 60.33 kg) Gender:FemalePatient Status: Inpatient BSA: 1.61 m2 Animal Shelter Manager: MALIK GREER Reading Physician: VIRGEN HOU MD, PhD Ordering Physician:MELITA KIM NP Procedure Indication(s):Stroke, Atrial fibrillation Examination:TTE Complete 2D(m-mode) , Complete Spectral Doppler, Color Doppler Conclusions Overall Conclusions 1. Normal left ventricular size and systolic function. EF is 60% without any regional wall motion abnormalities. 2. Normal right ventricular size and systolic function. 3. No evidence of an atrial shunt by agitated saline. 4. Mild mitral regurgitation. 5. Mild tricuspid regurgitation. 6. Mild pulmonary artery hypertension.Pulmonary artery systolic pressure is measured at 46 mmHg. 7. No significant pericardial effusion. Comparison Study Comparison Study: No previous echo was available for comparison Findings Left Ventricle: Normal left ventricular size. Normal left ventricular wall thickness. Normal left ventricular systolic function. The ejection fraction is visually estimated to be 65 %. Grade 2 left ventricular diastolic dysfunction. Left Atrium: Dilated left atrium. Aortic Valve: Tricuspid aortic valve with normal function. No significant aortic regurgitation. No aortic stenosis. Mitral Valve: Normal mitral valve structure. Mild mitral regurgitation. No mitral stenosis. IAS: No evidence of an atrial shunt by agitated saline. Right Ventricle: Normal right ventricular size. Normal right ventricular systolic function. Normal right ventricular wall thickness. Pulmonary artery systolic pressure is measured at 46 mmHg. Pulmonary Artery: Mild pulmonary artery hypertension. Right Atrium: Normal right atrial size. Tricuspid Valve: Normal tricuspid valve structure. Mild tricuspid regurgitation. Pulmonic Valve: Normal pulmonary valve structure. No significant pulmonary regurgitation. No pulmonary stenosis. IVC: Normal IVC size with minimal respirophasic changes. Pericardium: No significant pericardial effusion. No pleural effusion. Measurements Left Ventricle Aortic Valve LabelValueNormal Value LabelValue Normal Value FS, 2D33.42 % AV Vmax 139 cm/s LVDd, 2D38.3 mm AV Vmean97 cm/s LVDs, 2D25.5 mm AV VTI32.97 cm IVSd, 2D9.4 mm AV PGmax8 mmHg LVPWd, 2D 9.3 mm AV PGmean 4 mmHg LVEDV, 2D 63 ml AV Vmax, Sicglpe213 cm/s LVESV, 2D 24 ml Mitral Valve Left Atrium LabelValue Normal Value LabelValueNormal Value MV E Vmax 137 cm/s LA Volume Index 36 ml/m-sq MV A Vmax 78 cm/s Great Vessels MV E/E' [id number] LabelValueNormal Value MV Dec Time 120 ms PVein S 64 cm/s MV E' septal0.1 cm/s PVein D 74 cm/s Tricuspid Valve S/D Ratio 0.9 Label Value Normal Value Heart Rate TR Vmax 309 cm/s LabelValueNormal Value TR Pmax 38 mmHg Heart Rate66 bpm RA Pressure 8 mmHg RVSP46 mmHg (No Signature Object) Procedure Note Interface, Inc Results No Pull Forward - 02/10/2020 4:00 PM CDT Patient: DEANNA FERNANDES MR#: [id number] Exam Date: 02/10/2020 Transthoracic Echocardiogram [facility] [address] [place] [address] BP: 164/68 mmHg HR: 66 bpm : 1940 Exam Location: Bedside Height: 62.00 "(157.5 cm) Age: 79 year(s) Patient Room: 538 Weight: 133 lbs.(60.33 kg) Gender: Female Patient Status: Inpatient BSA: 1.61 m2 Animal Shelter Manager: MALIK GREER Reading Physician: VIRGEN HOU MD, PhD Ordering Physician: MELITA KIM NP Procedure Indication(s): Stroke, Atrial fibrillation Examination: TTE Complete 2D(m-mode), Complete Spectral Doppler, Color Doppler Conclusions Overall Conclusions 1. Normal left ventricular size and systolic function. EF is 60% without any regional wall motion abnormalities. 2. Normal right ventricular size and systolic function. 3. No evidence of an atrial shunt by agitated saline. 4. Mild mitral regurgitation. 5. Mild tricuspid regurgitation. 6. Mild pulmonary artery hypertension. Pulmonary artery systolic pressure is measured at 46 mmHg. 7. No significant pericardial effusion. Comparison Study Comparison Study: No previous echo was available for comparison Findings Left Ventricle: Normal left ventricular size. Normal left ventricular wall thickness. Normal left ventricular systolic function. The ejection fraction is visually estimated to be 65 %. Grade 2 left ventricular diastolic dysfunction. Left Atrium: Dilated left atrium. Aortic Valve: Tricuspid aortic valve with normal function. No significant aortic regurgitation. No aortic stenosis. Mitral Valve: Normal mitral valve structure. Mild mitral regurgitation. No mitral stenosis. IAS: No evidence of an atrial shunt by agitated saline. Right Ventricle: Normal right ventricular size. Normal right ventricular systolic function. Normal right ventricular wall thickness. Pulmonary artery systolic pressure is measured at 46 mmHg. Pulmonary Artery: Mild pulmonary artery hypertension. Right Atrium: Normal right atrial size. Tricuspid Valve: Normal tricuspid valve structure. Mild tricuspid regurgitation. Pulmonic Valve: Normal pulmonary valve structure. No significant pulmonary regurgitation. No pulmonary stenosis. IVC: Normal IVC size with minimal respirophasic changes. Pericardium: No significant pericardial effusion. No pleural effusion. Measurements Left Ventricle Aortic Valve Label Value Normal Value Label Value Normal Value FS, 2D 33.42 % AV Vmax 139 cm/s LVDd, 2D 38.3 mm AV Vmean 97 cm/s LVDs, 2D 25.5 mm AV VTI 32.97 cm IVSd, 2D 9.4 mm AV PGmax 8 mmHg LVPWd, 2D 9.3 mm AV PGmean 4 mmHg LVEDV, 2D 63 ml AV Vmax, Caliper 139 cm/s LVESV, 2D 24 ml Mitral Valve Left Atrium Label Value Normal Value Label Value Normal Value MV E Vmax 137 cm/s LA Volume Index 36 ml/m-sq MV A Vmax 78 cm/s Great Vessels MV E/E' septal 18.52 Label Value Normal Value MV Dec Time 120 ms PVein S 64 cm/s MV E' septal 0.1 cm/s PVein D 74 cm/s Tricuspid Valve S/D Ratio 0.9 Label Value Normal Value Heart Rate TR Vmax 309 cm/s Label Value Normal Value TR Pmax 38 mmHg Heart Rate 66 bpm RA Pressure 8 mmHg RVSP 46 mmHg (No Signature Object) Performing Organization Address City/State/Zipcode Phone Number [facility] [place], [place] COMPLETE BLOOD COUNT WITHOUT DIFFERENTIAL (02/10/2020 4:57 AM CDT) WBC 6.7 4.0 - 11.0 K/uL [address] RBC 3.86 3.80 - 5.30 M/uL [address] Hemoglobin 11.5 11.5 - 15.8 g/dL [address] Hematocrit 35.9 35.0 - 45.0 % [address] MCV 93.0 80.0 - 98.[address] MCH 29.8 25.5 - 34.[address] MCHC 32.0 31.5 - 36.5 g/dL [address] RDW-CV 14.3 11.5 - 15.5 % [address] RDW-SD 48.2 35.5 - 50.[address] Platelet Count 175 140 - 400 K/uL [address] MPV 10.5 8.5 - 12.[address] Specimen Blood Performing Organization Address [facility] Phone Number [address] [place] [address] COMPREHENSIVE METABOLIC PANEL (02/10/2020 4:56 AM CDT) [facility] Glucose 75 70 - 100 mg/dL [address] BUN 13 6 - 22 mg/dL [address] Creatinine 0.83 0.60 - 1.[address] mg/dL BUN/Creatinine Ratio 15.7 10.0 - 25.[address] Sodium 141 135 - 145 meq/L [address] Potassium 4.0 3.5 - 5.3 meq/L [address] Chloride 110 99 - 110 meq/L [place] [address] [facility] CO2 24 20 - 29 meq/L [address] Anion Gap with K 11 6 - 20 meq/L [address] Calcium 9.0 8.5 - 10.5 mg/dL [address] Protein Total 6.0 6.0 - 8.2 g/dL [address] Albumin 3.9 3.5 - 5.0 g/dL [address] Alkaline Phosphatase 66 30 - 150 U/L [address] AST - SGOT 21 0 - 35 U/L [address] ALT - SGPT 24 0 - 55 U/L [address] Bilirubin Total 0.4 0.2 - 1.2 mg/dL [address] Corrected Calcium 9.1 8.5 - 10.5 mg/dL [address] Age 79 Years [place] [address] [facility] eGFR Non- 66 >=[address] [place] mL/min/1.73m2 eGFR 80 >=[address] mL/min/1.73m2 Specimen Blood Performing Organization Address [facility] Phone Number [address] [place] [address] LIPID PANEL (02/10/2020 4:56 AM CDT) Cholesterol 164 100 - 200 mg/dL [facility] Triglyceride 95 50 - 150 mg/dL [facility] HDL 50 40 - 80 mg/dL [facility] LDL 95 0 - 129 mg/dL [facility] Specimen Blood Performing Organization Address City/State/Zipcode Phone Number [facility] [address] [place] [address] CTA NECK (02/09/2020 5:12 PM CDT) Specimen Narrative Performed At [facility] Patient Name: DEANNA FERNANDES Date of :1940 Procedure: CTA NECK Date of Service: 02/09/2020 EXAM: CTA HEAD, CTA NECK INDICATION: stroke code- aphasia TECHNIQUE: 1. CT angiogram of the brain performed without and following IV contrast administration. MIP reformations generated and reviewed. 2. CT angiogram of the neck performed following the same IV contrast injection. MIP reformations generated and reviewed. COMPARISON(S): Outside CT head 02/09/2020 FINDINGS: Noncontrast head CT: No acute intracranial hemorrhage. No extraaxial collection, mass effect or midline shift.No evidence of large vascular distribution infarct.Calvarium is intact without acute osseous abnormality.The orbits, paranasal sinuses and mastoid air cells are unremarkable as visualized. CT angiogram brain: Intracranial ICAs are patent and normal in caliber without high-grade stenosis or aneurysm. Middle cerebral arteries including the M1 and M2 segments are patent. 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 The left A1 and bilateral A2 segments are patent. Robust anterior communicating artery. The intradural vertebral arteries, picas, basilar, superior cerebellar, and posterior cerebral arteries are patent. There is no evidence for dural venous sinus thrombosis. CT angiogram neck: Conventional aortic arch anatomy. There is some motion artifact. There is no significant stenosis at the carotid bifurcations by NASCET criteria. No intraluminal thrombus or plaque ulceration. The cervical vertebral arteries are patent without high-grade stenosis. Lung apices are clear. No cervical lymphadenopathy. There is multilevel cervical disc degeneration. There is some erosive change at the odontoid process multilevel facet arthropathy is present. IMPRESSION: CT HEAD: 1. No acute intracranial hemorrhage or evidence for large vascular territory infarct. 2. MRI can be obtained if there is persisting concern for infarct. CTA HEAD: 1. No large vessel occlusion. No aneurysm or evidence for dural venous sinus thrombosis. CTA NECK: 1. Negative CTA of the neck. 2. There is some erosive change at the odontoid process which is nonspecific but can be seen in rheumatoid or CPPD arthropathy. Findings discussed with Dr Gaona at the time of the scan. Finalized by: José Miguel Gonzalez MD on 02/09/2020 5:17 PM CDT Patient/Procedure Information: [facility] MRN/EMILEE: [id number] Order Number: [id number] Accession Number: [id number] Ordering Provider: PERCY GAONA Authorizing Provider: PERCY GAONA Procedure Note Interface, [facility] - 02/09/2020 5:19 PM CDT Patient Name: DEANNA FERNANDES Date of : 1940 Procedure: CTA NECK Date of Service: 02/09/2020 EXAM: CTA HEAD, CTA NECK INDICATION: stroke code- aphasia TECHNIQUE: 1. CT angiogram of the brain performed without and following IV contrast administration. MIP reformations generated and reviewed. 2. CT angiogram of the neck performed following the same IV contrast injection. MIP reformations generated and reviewed. COMPARISON(S): Outside CT head 02/09/2020 FINDINGS: Noncontrast head CT: No acute intracranial hemorrhage. No extraaxial collection , mass effect or midline shift. No evidence of large vascular distribution infarct. Calvarium is intact without acute osseous abnormality. The orbits, paranasal sinuses and mastoid air cells are unremarkable as visualized. CT angiogram brain: Intracranial ICAs are patent and normal in caliber without high-grade stenosis or aneurysm. Middle cerebral arteries including the M1 and M2 segments are patent. 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 The left A1 and bilateral A2 segments are patent. Robust anterior communicating artery. The intradural vertebral arteries , picas, basilar, superior cerebellar, and posterior cerebral arteries are patent. There is no evidence for dural venous sinus thrombosis. CT angiogram neck: Conventional aortic arch anatomy. There is some motion artifact. There is no significant stenosis at the carotid bifurcations by NASCET criteria. No intraluminal thrombus or plaque ulceration. The cervical vertebral arteries are patent without high-grade stenosis. Lung apices are clear. No cervical lymphadenopathy. There is multilevel cervical disc degeneration. There is some erosive change at the odontoid process multilevel facet arthropathy is present. IMPRESSION: CT HEAD: 1. No acute intracranial hemorrhage or evidence for large vascular territory infarct. 2. MRI can be obtained if there is persisting concern for infarct. CTA HEAD: 1. No large vessel occlusion. No aneurysm or evidence for dural venous sinus thrombosis. CTA NECK: 1. Negative CTA of the neck. 2. There is some erosive change at the odontoid process which is nonspecific but can be seen in rheumatoid or CPPD arthropathy. Findings discussed with Dr Gaona at the time of the scan. Finalized by: José Miguel Gonzalez MD on 02/09/2020 5:17 PM CDT Patient/Procedure Information: [facility] MRN/EMILEE: [id number] Order Number: [id number] Accession Number: [id number] Ordering Provider: PERCY GAONA Authorizing Provider: PERCY GAONA Performing Organization Address City/State/Zipcode Phone Number [id number] CTA HEAD (02/09/2020 5:10 PM CDT) Specimen Narrative Performed At [facility] Patient Name: DEANNA FERNANDES Date of :1940 Procedure: CTA HEAD Date of Service: 02/09/2020 EXAM: CTA HEAD, CTA NECK INDICATION: stroke code- aphasia TECHNIQUE: 1. CT angiogram of the brain performed without and following IV contrast administration. MIP reformations generated and reviewed. 2. CT angiogram of the neck performed following the same IV contrast injection. MIP reformations generated and reviewed. COMPARISON(S): Outside CT head 02/09/2020 FINDINGS: Noncontrast head CT: No acute intracranial hemorrhage. No extraaxial collection, mass effect or midline shift.No evidence of large vascular distribution infarct.Calvarium is intact without acute osseous abnormality.The orbits, paranasal sinuses and mastoid air cells are unremarkable as visualized. CT angiogram brain: Intracranial ICAs are patent and normal in caliber without high-grade stenosis or aneurysm. Middle cerebral arteries including the M1 and M2 segments are patent. 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 The left A1 and bilateral A2 segments are patent. Robust anterior communicating artery. The intradural vertebral arteries, picas, basilar, superior cerebellar, and posterior cerebral arteries are patent. There is no evidence for dural venous sinus thrombosis. CT angiogram neck: Conventional aortic arch anatomy. There is some motion artifact. There is no significant stenosis at the carotid bifurcations by NASCET criteria. No intraluminal thrombus or plaque ulceration. The cervical vertebral arteries are patent without high-grade stenosis. Lung apices are clear. No cervical lymphadenopathy. There is multilevel cervical disc degeneration. There is some erosive change at the odontoid process multilevel facet arthropathy is present. IMPRESSION: CT HEAD: 1. No acute intracranial hemorrhage or evidence for large vascular territory infarct. 2. MRI can be obtained if there is persisting concern for infarct. CTA HEAD: 1. No large vessel occlusion. No aneurysm or evidence for dural venous sinus thrombosis. CTA NECK: 1. Negative CTA of the neck. 2. There is some erosive change at the odontoid process which is nonspecific but can be seen in rheumatoid or CPPD arthropathy. Findings discussed with Dr Gaona at the time of the scan. Finalized by: José Miguel Gonzalez MD on 02/09/2020 5:17 PM CDT Patient/Procedure Information: [facility] MRN/EMILEE: [id number] Order Number: [id number] Accession Number: [id number] Ordering Provider: PERCY GAONA Authorizing Provider: PERCY GAONA Procedure Note Interface, [facility] - 02/09/2020 5:19 PM CDT Patient Name: DEANNA FERNANDES Date of : 1940 Procedure: CTA HEAD Date of Service: 02/09/2020 EXAM: CTA HEAD, CTA NECK INDICATION: stroke code- aphasia TECHNIQUE: 1. CT angiogram of the brain performed without and following IV contrast administration. MIP reformations generated and reviewed. 2. CT angiogram of the neck performed following the same IV contrast injection. MIP reformations generated and reviewed. COMPARISON(S): Outside CT head 02/09/2020 FINDINGS: Noncontrast head CT: No acute intracranial hemorrhage. No extraaxial collection , mass effect or midline shift. No evidence of large vascular distribution infarct. Calvarium is intact without acute osseous abnormality. The orbits, paranasal sinuses and mastoid air cells are unremarkable as visualized. CT angiogram brain: Intracranial ICAs are patent and normal in caliber without high-grade stenosis or aneurysm. Middle cerebral arteries including the M1 and M2 segments are patent. 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 The left A1 and bilateral A2 segments are patent. Robust anterior communicating artery. The intradural vertebral arteries , picas, basilar, superior cerebellar, and posterior cerebral arteries are patent. There is no evidence for dural venous sinus thrombosis. CT angiogram neck: Conventional aortic arch anatomy. There is some motion artifact. There is no significant stenosis at the carotid bifurcations by NASCET criteria. No intraluminal thrombus or plaque ulceration. The cervical vertebral arteries are patent without high-grade stenosis. Lung apices are clear. No cervical lymphadenopathy. There is multilevel cervical disc degeneration. There is some erosive change at the odontoid process multilevel facet arthropathy is present. IMPRESSION: CT HEAD: 1. No acute intracranial hemorrhage or evidence for large vascular territory infarct. 2. MRI can be obtained if there is persisting concern for infarct. CTA HEAD: 1. No large vessel occlusion. No aneurysm or evidence for dural venous sinus thrombosis. CTA NECK: 1. Negative CTA of the neck. 2. There is some erosive change at the odontoid process which is nonspecific but can be seen in rheumatoid or CPPD arthropathy. Findings discussed with Dr Gaona at the time of the scan. Finalized by: José Miguel Gonzalez MD on 02/09/2020 5:17 PM CDT Patient/Procedure Information: [facility] MRN/EMILEE: [id number] Order Number: [id number] Accession Number: [id number] Ordering Provider: PERCY GAONA Authorizing Provider: PERCY GAONA Performing Organization Address City/State/Zipcode Phone Number [id number] CRITICAL CARE (02/09/2020 4:56 PM CDT) Narrative Performed At Glen Dewitt MD 02/09/20207:10 PM CRITICAL CARE Performed by: Glen Dewitt MD Authorized by: Glen Dewitt MD Total critical care time: 35 minutes Critical care time was exclusive of separately billable procedures and treating other patients. Critical care was necessary to treat or prevent imminent or life-threatening deterioration of the following conditions: PRIVACY ANALYST failure or compromise. Critical care was time spent personally by me on the following activities: discussions with consultants, evaluation of patient's response to treatment, examination of patient, obtaining history from patient or surrogate, ordering and performing treatments and interventions, ordering and review of laboratory studies, ordering and review of radiographic studies, pulse oximetry, re-evaluation of patient's condition and review of old charts. GLYCATED HEMOGLOBIN (02/09/2020 4:55 PM CDT) Hgb A1C 5.7 (H) <5.7 % [facility] Estimated Average 117 mg/dL [facility] Specimen Blood Narrative Performed At ADA Interpretive Guidelines [facility] When Using HbA1c for Diagnosis Prediabetes 5.7 - 6.4% Diabetes >=6.5% When Using HbA1c for Monitoring a Person Known to Have Diabetes, < 7% is a reasonable goal for many non adults, < 7.5% should be considered in children and adolescents (<19 years) with type 1 diabetes. ADA Standards of Medical Care in Diabetes - 2019 Performing Organization Address [facility] Phone Number [facility] [address] [place] [address] COLLECT AND HOLD SST TOP TUBE (02/09/2020 4:55 PM CDT) Collect and Hold Comment: RECEIVED [place] [phone] Specimen Status CLINIC Specimen Blood Performing Organization Address [facility] Phone Number [address] [place] [phone] COLLECT AND HOLD POSSIBLE CROSSMATCH TUBE (02/09/2020 4:55 PM CDT) Extra Tube For BB Received [address] - BLOOD BANK Specimen Blood Performing Organization Address [facility] Phone Number [address] BLOOD BANK [address] [place] [address], [place] [address] COLLECT AND HOLD HUBER (NAFL) TOP TUBE (02/09/2020 4:55 PM CDT) Collect and Hold Comment: RECEIVED [place] [phone] Specimen Status CLINIC Specimen Blood Performing Organization Address [facility] Phone Number [address] [place] [address], [place] [address] GLUCOSE BY METER, POCT (02/09/2020 4:55 PM CDT) Glucose POC 73 70 - 100 mg/dL [facility] POINT OF CARE TESTING Specimen Blood Performing Organization Address [facility] Phone Number [facility] POINT OF [address] [place] [address], [place] [address] CARE TESTING TROPONIN I (02/09/2020 4:55 PM CDT) Troponin I 0.004 0.000 - 0.028 ng/mL [address] Specimen Blood Performing Organization Address [facility] Phone Number [address] [address] PTT (02/09/2020 4:55 PM CDT) APTT 25 24 - [address] Specimen Blood Performing Organization Address [facility] Phone Number [address] [place] [address] PROTIME/INR (02/09/2020 4:55 PM CDT) Protime 13.8 12.0 - 14.[address] INR 1.1 (L) 2.0 - 3.[address] Specimen Blood Narrative Performed At Normal INR reference range (patients not on oral [address] anticoagulants)0.9-1.1. INR Standard Intensity=(2.0 - 3.0) INR Higher Intensity=(2.5 - 3.5) Performing Organization Address [facility] Phone Number [address] [place] [address] BASIC METABOLIC PANEL (02/09/2020 4:55 PM CDT) Glucose 84 70 - 100 mg/dL [address] BUN 14 6 - 22 mg/dL [address] Creatinine 0.87 0.60 - 1.[address] mg/dL BUN/Creatinine Ratio 16.1 10.0 - 25.[address] Sodium 141 135 - 145 meq/L [address] Potassium 4.7 3.5 - 5.3 meq/L [address] Chloride 110 99 - 110 meq/L [address] CO2 21 20 - 29 meq/L [address] Anion Gap with K 15 6 - 20 meq/L [address] Calcium 9.5 8.5 - 10.5 mg/dL [address] Age [address] eGFR Non- 62 >=[address] [place] mL/min/1.73m2 eGFR 76 >=[address] mL/min/1.73m2 Specimen Blood Performing Organization Address [facility] Phone Number [address] [place] [phone] COMPLETE BLOOD COUNT WITHOUT DIFFERENTIAL (02/09/2020 4:55 PM CDT) WBC 9.2 4.0 - 11.0 K/uL [address] RBC 3.93 3.80 - 5.30 M/uL [address] Hemoglobin 11.6 11.5 - 15.8 g/dL [address] Hematocrit 35.9 35.0 - 45.0 % [address] MCV 91.3 80.0 - 98.[address] MCH 29.5 25.5 - 34.[address] MCHC 32.3 31.5 - 36.5 g/dL [address] RDW-CV 14.1 11.5 - 15.5 % [address] RDW-SD 47.8 35.5 - 50.[address] Platelet Count 240 140 - 400 K/uL [address] MPV 10.7 8.5 - 12.[address] Specimen Blood Performing Organization Address [facility] Phone Number [address] [place] [phone] documented in this encounter Visit Diagnoses Diagnosis Cerebrovascular accident (CVA), unspecified mechanism (HCC) - Primary Atrial fibrillation, unspecified type (HCC) documented in this encounter Discharge Diagnoses Not on filedocumented in this encounter Administered Medications Medication Order MAR Action Action Date Dose Rate Site acetaminophen (TYLENOL) suppository 650 mg 650 mg, Rectal, Every six hours prn, Starting Sat02/09/20 at 1720, Until Discontinued, fever > (indicate temp), 100.4 degrees F, Use rectal suppository if patient not able to take oral acetaminophen. Total dose of acetaminophen from all acetaminophen containing products should not exceed 4 grams (4000 mg) per day. , acetaminophen (TYLENOL) tablet 650 mg Given 02/10/2020 9:06 PM CDT 650 mg 650 mg, Oral, Every six hours prn, Starting Sat02/09/20 at 1720, Until Discontinued, fever > (indicate temp), 100.4 degrees F, Total dose of acetaminophen from all acetaminophen containing products should not exceed 4 grams (4000 mg) per day., Given 02/10/2020 2:07 AM CDT 650 mg Given 02/09/2020 7:44 PM CDT 650 mg aspirin tablet 325 mg Given 02/11/2020 7:51 AM CDT 325 mg 325 mg, Oral, Daily, First dose on Sat02/10/20 at 1620, Until Discontinued Given 02/10/2020 5:33 PM CDT 325 mg atorvaSTATin (LIPITOR) tablet 20 mg Given 02/11/2020 7:51 AM CDT 20 mg 20 mg, Oral, Daily, First dose on Sat02/10/20 at 0925, Until Discontinued Given 02/10/2020 10:10 AM CDT 20 mg bisacodyl (DULCOLAX) suppository 10 mg 10 mg, Rectal, One time a day prn, Starting Sat02/09/20 at 1720, Until Discontinued, constipation, Use second for constipation. If patient cannot take oral medications, use first for constipation., calcium carbonate tablet 500 mg Given 02/11/2020 9:14 AM CDT 500 mg 500 mg, Oral, DAILY, First dose on Sat02/10/20 at 0900, Until Discontinued Given 02/10/2020 10:10 AM CDT 500 mg dilTIAZem (CARDIZEM) 1 mg/mL IV New Bag 02/10/2020 6:47 PM CDT 5 mg/hr 5 mL/hr infusion (SMF) 0-20 mg/hr (0-20 mL/hr), IV, at 0-20 mL/hr, Titrate, Starting Sat02/10/20 at 1925, Until Discontinued, 1 mg/mL, 125 mL, Initiate infusion at 5mg/hr. Increase or decrease the infusion by 5 mg/hr every 30 min as needed to keep heart rate less than 120 beats per minute. Hold for heart rate less than 60 beats per minute or a systolic blood pressure less than 90 mmHg. Document titrations in One Chart (MAR or I&O Flowsheet medication group). Check with physician after first 24 hours of infusion if it is to be continued. Call Pharmacy when drip is needed. *Vital signs every 20 minutes x 4. Then, if stable, vital signs every hour x 4, then if stable every 4 hours* Restart vital sign frequency with each rate change., DULoxetine (CYMBALTA) capsule 60 mg Given 02/11/2020 7:51 AM CDT 60 mg 60 mg, Oral, DAILY, First dose on Sat02/10/20 at 0900, Until Discontinued, Should not be crushed or chewed, Given 02/10/2020 9:34 AM CDT 60 mg fluticasone (FLONASE) 50 mcg/spray Given 02/11/2020 7:51 AM CDT 1 spray 1 spray, Each nostril, Two times a day, First dose on Sat02/09/20 at 2100, Until Discontinued, use as directed, Given 02/10/2020 9:06 PM CDT 1 spray Given 02/09/2020 9:45 PM CDT 1 spray haloperidol lactate (HALDOL) injection solution 2.5 mg 2.5 mg, IV, Every six hours prn, Starting Sat02/09/20 at 1720, Until Discontinued, other (Specify), nausea/vomiting, 0.5 mL, Use SECOND for nausea/vomiting. If ineffective and ondansetron used, call physician for alternative Do not further dilute with 0.9% sodium chloride. If preference is to further dilute for IV administration: first draw up patient-specific dose, then dilute to 10ml with dextrose 5% water. Ok to flush with 0.9% Sodium Chloride., labetalol (NORMODYNE;TRANDATE) IV solution 10-40 mg 10-40 mg, IV, Every ten minutes prn, Starting Sat02/09/20 at 1720, Until Discontinued, specified parameter, per admin instructions, 8 mL, For systolic blood pressure greater than 180 mmHg or diastolic blood pressure greater than 105 mmHg: Starting dose of 10 mg Administer over 1-2 minutes. Dose may be increased by 10 mg from previous dose (up to ordered maximum) for a single dose. Max dose 150 mg for 8 hours or 300 mg in 24 hours. Monitor blood pressure every 15 minutes x 4 and observe for hypotension and bradycardia after each dose., metoprolol tartrate (LOPRESSOR) tablet 25 mg Given 02/11/2020 6:36 AM CDT 25 mg 25 mg, Oral, Two times a day, First dose on Sat02/10/20 at 1800, Until Discontinued, Hold for SBP less than 100 Hold for HR less than 60, omeprazole (priLOSEC) capsule 20 mg Given 02/11/2020 6:37 AM CDT 20 mg 20 mg, Oral, Every morning, First dose on Sat02/10/20 at 0700, Until Discontinued, Swallow capsule whole. Do not crush or chew. Capsule can be opened and mixed with applesauce., Formulary Substitute for esomeprazole 40mg, Given 02/10/2020 6:04 AM CDT 20 mg ondansetron (ZOFRAN) injection solution 4 mg 4 mg, IV, Every four hours prn, Starting Sat02/09/20 at 1720, Until Discontinued, nausea, vomiting, 2 mL, Use FIRST. If ineffective after 15 minutes use haloperidol if ordered for nausea/vomiting If preference is to further dilute for IV administration: First draw up patient-specific dose, then dilute to 10 mL with 0.9% sodium chloride., sodium chloride 0.9% flush (adult) 10 mL Given 02/11/2020 7:52 AM CDT 10 mL 10 mL, IV, Two times a day and prn, First dose on Sat02/09/20 at 2100, Until Discontinued, 10 mL, Flush IV line as scheduled and as often as necessary before and after meds., sodium chloride 0.9% flush (adult) 10 mL Given 02/11/2020 7:52 AM CDT 10 mL 10 mL, IV, Two times a day and prn, First dose on Sat02/09/20 at 2100, Until Discontinued, 10 mL, Flush IV line as scheduled and as often as necessary before and after meds., vitamin D3 (cholecalciferol) tablet Given 02/11/2020 7:51 AM CDT 2,000 Units 2,000 Units 2,000 Units, Oral, DAILY, First dose on Sat02/10/20 at 0900, Until Discontinued Given 02/10/2020 9:34 AM CDT 2,000 Units Medication Order MAR Action Action Date Dose Rate Site dilTIAZem (CARDIZEM) IV Given 02/10/2020 6:46 PM CDT 15.15 mg solution 15.15 mg 15.15 mg (rounded from 15.125 mg=0.25 mg/kg 60.5 kg), IV, Now, 1 dose, Sat02/10/20 at 1825, 5 mL, Give IV bolus over 2 minutes., iohexol (OMNIPAQUE) 300 mg/mL solution 100 mL Given 02/09/2020 5:10 PM CDT 85 mL 100 mL, IV, Now imaging, 1 dose, Starting Sat02/09/20 at 1710, Until Sat02/09/20 at 1710, 100 mL sodium chloride 0.9% IV solution New Bag 02/10/2020 4:47 AM CDT 100 mL/hr IV, at 100 mL/hr, Continuous, Starting Sat02/09/20 at 1800, Until Sat02/10/20 at 0924, 1,000 mL New Bag 02/09/2020 7:08 PM CDT 100 mL/hr warfarin (COUMADIN) tablet 5 mg Given 02/11/2020 12:48 PM CDT 5 mg 5 mg, Oral, Warfarin one time dose, 1 dose, [facility] 02/11/20 at 1205, If patient is receiving tube feeding, hold tube feeding 1 hour before and 1 hour after warfarin administration., documented in this encounter
== END 2020-02-09 15:45 ==
LOC: LL.ED 14:21
DX: R47.81 Slurred speech (principal); R00.1 Bradycardia, unspecified; R79.1 Abnormal coagulation profile; I48.91 Unspecified atrial fibrillation; I50.9 Heart failure, unspecified; E78.00 Pure hypercholesterolemia, unspecified; K21.9 Gastro-esophageal reflux disease without esophagitis; M19.90 Unspecified osteoarthritis, unspecified site; F41.9 Anxiety disorder, unspecified; Z88.1 Allergy status to other antibiotic agents; Z91.048 Other nonmedicinal substance allergy status; Z79.899 Other long term (current) drug therapy; Z79.82 Long term (current) use of aspirin
CPT/HCPCS: 36415; 37195; 70450; 71045; 80053; 82550; 82553; 83735; 83880; 84146; 84484; 85025; 85379; 85610; 85730; 93005; 99285; J2997; 93010; 99284

== ENCOUNTER 2021-07-10 09:08 | Emergency (ER) | payer MEDICARE, BC ==
[2021-07-10] MEDS ORDERED: Sodium Chloride 0.9% 10 ML Syringe FLUSH PRN (09:14)
[2021-07-10 09:55] LABS: ANION GAP 12.3 meq/L (7-15); CHLORIDE,CL 105 mmol/L (98-107); SODIUM,NA 144 mmol/L (136-145)
[2021-07-10] MEDS ORDERED: Meclizine 25 MG Tab PO ONE (09:55)
--- NOTE | 2021-07-10 10:01 | EDM.PDOC ---
ED HPI GENERAL MEDICAL PROBLEM - General Chief Complaint: General Stated Complaint: dizziness, chest discomfort, abdominal pain Time Seen by Provider: 07/10/21 09:33 Source of Information: Reports: Patient History Limitations: Reports: No Limitations - History of Present Illness INITIAL COMMENTS - FREE TEXT/NARRATIVE: 2 day history of central chest tightness (denies actual pain), sensation of mild SOB, central abdominal discomfort. Denies sensation of dizziness/vertigo but rather describes sensation as feeling balance is off. No headache/vision change/ear pain/sore throat. No cough/wheeze No nausea/emesis/bowel changes. Does not feel constipated. No bowel movement today as of yet. Reports decreased appetite. No focal neuro changes/weakness No UTI/urinary changes. No med changes. Has not taken any OTC meds for symptoms. No contact with anyone who is ill. - Related Data Allergies Allergy/AdvReac Type Severity Reaction Status Date / Time amoxicillin trihydrate Allergy Nausea Verified 07/10/21 09:09 [From Augmentin] nickel Allergy Rash Verified 07/10/21 09:09 potassium clavulanate Allergy Nausea Verified 07/10/21 09:09 [From Augmentin] Home Meds: Home Meds Acetaminophen/Diphenhydramine [Tylenol Pm Ex-Strength Caplet] 1 tab PO BEDTIME PRN 11/18/15 [History] Atropine/Diphenoxylate [Lomotil 0.025-2.5 MG] 1 tab PO BID PRN 11/18/15 [History] Eszopiclone [Lunesta] 2 mg PO BEDTIME PRN 11/18/15 [History] Multivitamin with Minerals [Multiple Vitamin] 1 tab PO DAILY 11/18/15 [History] Calcium Carbonate [Calcium] 600 mg PO DAILY 12/08/15 [History] Cholecalciferol (Vitamin D3) [Vitamin D3] 2,000 unit PO DAILY 12/08/15 [History] DULoxetine [Cymbalta] 60 mg PO DAILY 01/27/16 [History] atorvaSTATin [Lipitor] 20 mg PO BEDTIME 01/01/20 [History] Metoprolol Tartrate [Lopressor] 25 mg PO BID 01/07/20 [History] Warfarin [Coumadin] 1 tab PO ASDIRECTED 07/10/21 [History] Warfarin [Coumadin] 1 tab PO MOWE 07/10/21 [History] Past Medical History HEENT History: Reports: Allergic Rhinitis, Cataract, Hard of Hearing, Impaired Vision Other HEENT History: She wears glasses. Bilateral presbycusis with bilateral hearing aides therapy. Cardiovascular History: Reports: Afib, Heart Failure, High Cholesterol, Other (See Below) Other Cardiovascular History: Atrial fibrillation with rapid ventricular response with additional D-dimer elevation with negative workup on 01/01/20 as below. Respiratory History: Reports: Intubation, Previous, Other (See Below) Other Respiratory History: Benign right upper lobe pulmonary nodule by CT scan on 01/01/20. Gastrointestinal History: Reports: Chronic Diarrhea, Diverticulosis, GERD, Hemorrhoids, Irritable Bowel Syndrome, Other (See Below) Other Gastrointestinal History: Sigmoid diverticulosis. Genitourinary History: Reports: None FACILITIES PROJECT MANAGER History: Reports: Fibroids, , Spontaneous Other FACILITIES PROJECT MANAGER History: Menopause at age 40. Subsequent complete hysterectomy secondary to fibroids at about age 72. SABs 3 in the first trimester with D&Cs as below. Otherwise, Full term without complications during pregnancies or deliveries Musculoskeletal History: Reports: Arthritis, Back Pain, Chronic, Neck Pain, Chronic, Osteoarthritis, Osteoporosis, Other (See Below) Other Musculoskeletal History: Left popliteal cyst. 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 Immunologic History: Reports: None Oncologic (Cancer) History: Reports: None Dermatologic History: Reports: None - Infectious Disease History Infectious Disease History: Reports: Chicken Pox, Measles, Mumps, Pertussis (Whooping Cough). Denies: C-Difficile, Meningitis, Mononucleosis, MRSA, Rheumatic Fever, Rubella, Scarlet Fever, Shingles, TB, VRE - Past Surgical History Head Surgeries/Procedures: Reports: None HEENT Surgical History: Reports: Cataract Surgery, Oral Surgery, Other (See Below) Other HEENT Surgeries/Procedures: Biateral cataract surgery 2013. Multiple teeth extractions. Cardiovascular Surgical History: Reports: None Respiratory Surgical History: Reports: None GI Surgical History: Reports: Appendectomy, Colonoscopy, Other (See Below) Other GI Surgeries/Procedures: Appendectomy in April 1958. Hemorrhoidectomy on 09/06/11. Colonoscopy on 12/08/15, 09/06/08, and 11/27/04. Female Surgical History: Reports: Breast Biopsy, D&C, Dilitation & Evacuation, Hysterectomy, Salpingo-Oophorectomy, Other (See Below) Other Female Surgeries/Procedures: Bilateral breast biopsies for benign disease. Complete hysterectomy secondary to uterine fibroid on 11/19/13. D&C 3 secondary to SABs as above. Endocrine Surgical History: Reports: None Neurological Surgical History: Reports: None Musculoskeletal Surgical History: Reports: Joint Replacement, Shoulder Replacement, Shoulder Surgery, Other (See Below) Other Musculoskeletal Surgeries/Procedures:: Bilateral wrist/hand tendon tendon release. Left shoulder total arthroplasty on 11/19/13 subsequent right total shoulder arthroplasty in 2014. Oncologic Surgical History: Reports: Biopsy of Breast, Other (See Below) Other Oncologic Surgeries/Procedures: As above for benign disease. Dermatological Surgical History: Reports: None - Past Imaging History Past Imaging History: Reports: CAT Scan (Negative CTA of the chest for PE on 01/01/20.), MRI (MRI of the C-spine on 03/06/10.), Venous Doppler (Negative of the legs bilaterally on 01/01/20.) Social & Family History - Family History HEENT: Reports: None. Denies: Glaucoma, Macular Degeneration, Retinal Detachment Cardiac: Reports: CAD, Hypertension, NV, Other (See Below). Denies: Afib, AICD, Aneurysm, Arrhythmia, Blood Clots/VTE/DVT, Bypass, Cardiomyopathy, Heart Failure, Heart Murmur, High Cholesterol, PVD/COD, Syncope Other Cardiac Family History: Mother with concurrent CVA and acute NV with unsuccessful CABG at age 79. Father with fatal NV at age 77. Sister with fatal NV at age 83. Hypertension in father, sister, and brothers 2. Respiratory: Reports: None. Denies: Asthma, COPD, PE, Pneumothorax, Sleep Apnea GI: Reports: None. Denies: Celiac Disease, Cholelithiasis, Colon Polyps, GERD, GI bleed, Inflammatory Bowel Disease, Irritable Bowel Syndrome, PUD : Reports: Dialysis, Renal Disease/Insufficiency, Other (See Below) Other Family History: Brother with renal failure requiring dialysis fatal at age 73. OBGYN: Reports: Endometriosis, Other (See Below). Denies: Recurrent Spontaneous Other OBGYN Family History: Sister with endometriosis. Musculoskeletal: Reports: Arthritis, Osteoarthritis, Other (See Below). Denies: Gout, RA, SLE Other Musculoskeletal Family History: Sisters 2 with osteoarthritis. Neurological: Reports: CVA, Other (See Below). Denies: Alzheimers Disease, Cerebral Aneurysms, Dementia, Migraines, MS, Parkinson's, Seizure, TIA Other Neurological Family History: Mother with CVA as above. Psychiatric: Reports: None. Denies: Abuse, Victim of, ADD, ADHD, Anxiety, Depression, Psych Hospitalization(s), PTSD, Suicide Attempt Endocrine/Metabolic: Reports: Diabetes, type II, IDDM, Other (See Below). Denies: Diabetes, Gestational, Diabetes, Type I, Diabetes Mellitus, Type 3c, Hypothyroidism Other Endocrine/Metabolic Family History: IDDM in brother from complications at age 47. Hematologic: Reports: None. Denies: SLE Immunologic: Reports: None. Denies: SLE Dermatologic: Reports: None. Denies: Eczema, Psoriasis Oncologic: Reports: Breast, Lymphoma, Metastatic, Other (See Below) Other Oncologic Family History: Mother with history of lymphoma. Sister with fatal metastatic breast cancer at 79. Another sister with unknown type of fatal cancer in her late 70s. - Caffeine Use Caffeine Use: Reports: Coffee (2 Cups per day). 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 ED EXAM, GENERAL - Physical Exam Exam: See Below Exam Limited By: No Limitations General Appearance: Alert, WD/WN, No Apparent Distress Eye Exam: Bilateral Eye: EOMI, PERRL Nose: Normal Inspection Throat/Mouth: Normal Inspection, Normal Lips, Normal Voice, No Airway Compromise Head: Atraumatic, Normocephalic Neck: Supple, Non-Tender, Full Range of Motion Respiratory/Chest: No Respiratory Distress, Lungs Clear, Normal Breath Sounds, N o Accessory Muscle Use, Chest Non-Tender Cardiovascular: Normal Peripheral Pulses, No Edema, No Murmur, Irregularly Irregular GI/Abdominal: Soft, Non-Tender, No Abnormal Bruit, No Mass, Abnormal Bowel Sounds (diminished throughout) (Female) Exam: Deferred Rectal (Female) Exam: Deferred Back Exam: Normal Inspection Extremities: Normal Inspection, No Pedal Edema, Normal Capillary Refill Neurological: Alert, Oriented, Normal Cognition, No Motor/Sensory Deficits Psychiatric: Normal Affect, Normal Mood Skin Exam: Warm, Dry, Intact, Normal Color #1 Interpretation EKG Date: 07/10/21 Time: 09:26 Rhythm: A-Fib Rate (Beats/Min): 105 Danese: Normal P-Wave: Absent QRS: Normal ST-T: Other (mild depression appears to be present lateral leads/II/III/AVF) QT: Normal Comparison: Other: (Compared to EKG from 12/31/20 and similar pattern of depression with AFib noted) Course - Vital Signs Last Recorded V/S: Last Vital Signs Temp 36.4 C 07/10/21 09:15 Pulse 94 07/10/21 09:15 Resp 17 07/10/21 09:15 BP 105/64 07/10/21 09:15 Pulse Ox 98 07/10/21 09:15 - Orders/Labs/Meds Orders: Active Orders 24 hr Category Date Time Status Peripheral IV Care [RC] . DIRECTED Care 07/10/21 09:14 Active Abdomen 1V Upright [CR] Stat Exams 07/10/21 09:55 Taken Chest 1V Frontal [CR] Stat Exams 07/10/21 09:54 Taken PE Chest [Ang Chest] [CT] Stat Exams 07/10/21 11:16 Taken INR,PT,PROTHROMBIN TIME [COAG] Stat Lab 07/10/21 15:05 Ordered Sodium Chloride 0.9% [Saline Flush] Med 07/10/21 09:14 Active 10 ml FLUSH ASDIRECTED PRN Peripheral IV Insertion Adult [OM.PC] Routine Oth 07/10/21 09:14 Ordered Medication Orders Sodium Chloride (Sodium Chloride 0.9% 10 Ml Syringe) 10 ml FLUSH ASDIRECTED PRN PRN Reason: Keep Vein Open Last Admin: 07/10/21 12:03 Dose: 10 ml Documented by: TEMI Labs: Laboratory Tests 07/10/21 07/10/21 07/10/21 Range/Units 09:14 09:30 09:30 WBC 6.2 (4.0-10.2) K/uL RBC 4.81 (3.77-5.09) M/uL Hgb 14.8 D (11.7-15.5) g/dL Hct 44.2 (34.0-46.0) % MCV 91.9 (84.0-98.0) fL MCH 30.8 (28.2-33.3) pg MCHC 33.5 (31.7-36.0) g/dL RDW 13.8 (11.2-14.1) % Plt Count 271 (150-350) K/uL Neut % (Auto) 56.6 (45.0-80.0) % Lymph % (Auto) 32.2 (10.0-50.0) % [place] % (Auto) 8.0 (2.0-14.0) % Eos % (Auto) 2.7 (0.0-5.0) % Baso % (Auto) 0.5 (0.0-2.0) % Neut # (Auto) 3.53 (1.40-7.00) K/uL Lymph # (Auto) 2.01 (0.50-3.50) K/uL [place] # (Auto) 0.50 (0.00-1.00) K/uL Eos # (Auto) 0.17 (0.00-0.50) K/uL Baso # (Auto) 0.03 (0.00-0.20) K/uL D-Dimer, Quantitative (0-400) ng/mL Sodium 144 (136-145) mmol/L Potassium 3.7 (3.5-5.1) mmol/L Chloride 105 (98-107) mmol/L Carbon Dioxide 26.7 (21.0-32.0) mmol/L Anion Gap 12.3 (7-15) meq/L BUN 18 (7-18) mg/dL Creatinine 1.30 H (0.51-1.17) mg/dL Est Cr Clr Drug Dosing TNP Estimated GFR (MDRD) 39 mL/min Glucose 153 H (70-99) mg/dL Calcium 9.3 (8.5-10.1) mg/dL Magnesium 2.0 (1.8-2.4) mg/dL Total Bilirubin 0.4 (0.2-1.0) mg/dL AST 23 (15-37) U/L ALT 26 (12-78) U/L Alkaline Phosphatase 75 (46-116) IU/L Troponin I High Sens 7 (<=51) ng/L NT-Pro-B Natriuret Pep (0-125) pg/mL Total Protein 6.6 (6.4-8.2) g/dL Albumin 3.5 (3.4-5.0) g/dL Specimen Type Urine Color Urine Appearance Urine pH (5.0-9.0) Ur Specific Mcdonald (1.005-1.030) Urine Protein (NEGATIVE) mg/dL Urine Glucose (UA) (NEGATIVE) mg/dL Urine Ketones (NEGATIVE) mg/dL Urine Occult Blood (NEGATIVE) Urine Nitrite (NEGATIVE) Urine Bilirubin (NEGATIVE) Urine Urobilinogen (0.2-1.0) E.U./dL Ur Leukocyte Esterase (NEGATIVE) U Hyaline Cast (Auto) Urine RBC /HPF Urine WBC /HPF Ur Epithelial Cells /LPF Urine Bacteria (NONE TO FEW) /HPF Granular Casts (Auto) Urine Mucus (NEGATIVE) /LPF SARS-CoV-2 RNA (WING) Negative (NEGATIVE) 07/10/21 07/10/21 07/10/21 Range/Units 10:08 10:14 11:20 WBC (4.0-10.2) K/uL RBC (3.77-5.09) M/uL Hgb (11.7-15.5) g/dL Hct (34.0-46.0) % MCV (84.0-98.0) fL MCH (28.2-33.3) pg MCHC (31.7-36.0) g/dL RDW (11.2-14.1) % Plt Count (150-350) K/uL Neut % (Auto) (45.0-80.0) % Lymph % (Auto) (10.0-50.0) % [place] % (Auto) (2.0-14.0) % Eos % (Auto) (0.0-5.0) % Baso % (Auto) (0.0-2.0) % Neut # (Auto) (1.40-7.00) K/uL Lymph # (Auto) (0.50-3.50) K/uL [place] # (Auto) (0.00-1.00) K/uL Eos # (Auto) (0.00-0.50) K/uL Baso # (Auto) (0.00-0.20) K/uL D-Dimer, Quantitative 943 H (0-400) ng/mL Sodium (136-145) mmol/L Potassium (3.5-5.1) mmol/L Chloride (98-107) mmol/L Carbon Dioxide (21.0-32.0) mmol/L Anion Gap (7-15) meq/L BUN (7-18) mg/dL Creatinine (0.51-1.17) mg/dL Est Cr Clr Drug Dosing Estimated GFR (MDRD) mL/min Glucose (70-99) mg/dL Calcium (8.5-10.1) mg/dL Magnesium (1.8-2.4) mg/dL Total Bilirubin (0.2-1.0) mg/dL AST (15-37) U/L ALT (12-78) U/L Alkaline Phosphatase (46-116) IU/L Troponin I High Sens (<=51) ng/L NT-Pro-B Natriuret Pep 4010 H (0-125) pg/mL Total Protein (6.4-8.2) g/dL Albumin (3.4-5.0) g/dL Specimen Type Urinvoid Urine Color Yellow Urine Appearance Clear Urine pH 5.5 (5.0-9.0) Ur Specific Mcdonald >= 1.030 (1.005-1.030) Urine Protein Negative (NEGATIVE) mg/dL Urine Glucose (UA) Negative (NEGATIVE) mg/dL Urine Ketones Negative (NEGATIVE) mg/dL Urine Occult Blood Negative (NEGATIVE) Urine Nitrite Negative (NEGATIVE) Urine Bilirubin Negative (NEGATIVE) Urine Urobilinogen 0.2 (0.2-1.0) E.U./dL Ur Leukocyte Esterase Negative (NEGATIVE) U Hyaline Cast (Auto) Moderate Urine RBC 0-5 /HPF Urine WBC 0-5 /HPF Ur Epithelial Cells Few /LPF Urine Bacteria Rare (NONE TO FEW) /HPF Granular Casts (Auto) Occasional Urine Mucus Many H (NEGATIVE) /LPF SARS-CoV-2 RNA (WING) (NEGATIVE) Meds: Medications Generic Name Dose Route Start Last Admin Trade Name Freq PRN Reason Stop Dose Admin Sodium Chloride 10 ml 07/10/21 09:14 07/10/21 12:03 Sodium Chloride 0.9% 10 Ml Syringe FLUSH 10 ml ASDIRECTED PRN Administration Keep Vein Open Discontinued Medications Generic Name Dose Route Start Last Admin Trade Name [place] PRN Reason Stop Dose Admin Sodium Chloride 500 mls @ 250 mls/hr 07/10/21 11:30 07/10/21 12:03 Normal Saline IV 07/10/21 13:29 250 mls/hr ASDIRECTED RUBIO Administration Iopamidol 100 ml 07/10/21 11:22 07/10/21 11:54 Iopamidol 755 Mg/Ml 100 Ml Bottle IVPUSH 07/10/21 11:23 100 ml ONETIME ONE Administration Meclizine HCl 25 mg 07/10/21 09:55 07/10/21 11:32 Meclizine 25 Mg Tab PO 07/10/21 09:56 25 mg ONETIME ONE Administration - Radiology Interpretation Free Text/Narrative:: No acute changes noted on chest xray. May have a few air/fluid levels on abdominal film but no evidence of obstruction. Pending Radiology review. - Re-Assessments/Exams Free Text/Narrative Re-Assessment/Exam: 07/10/21 11:25 Initially mildly tachycardic when first arrived. Normal heart rate when resting. Non-specific complaints. Cardiac workup initiated given the chest tightness and SOB. Elevated DDimer/proBNP. Chest and abdominal films unremarkable. EKG showed afib with HR of 105, scattered mild ST depression in multiple leads. These were similar to pattern noted December of this year when compared to previous EKG. Troponin negative. Plan at this time is to scan to rule out PE as potential cause for today's complaints. Patient appears to be resting comfortably at this time. 07/10/21 15:13 PE scan negative for PE or other acute changes. Patient rested while rest of IV fluid bolus (500ml) infused. Meclizine also ordered. Was feeling better afterwards. Ambulated by nurse and did well. Patient reports that she currently feels back to baseline and feeling of unbalance/chest tightness/abdominal discomfort has completely resolved. Vital signs stable. Uncertain as to etiology of complaint. No significant elevation of heart rated noted with activity. Differential includes Afib/RVR/potential viral infection/PE/cardiac etiology. Only interventions were the fluid bolus and Meclizine. Potential of mild dehydration contributing to presenting complaints. Patient declined observation admission and wants to go home. Instructed to observe for changes over next several days. To check pulse if feeling more symptomatic. To return to ER if she has sudden worsening problems. Departure - Departure Time of Disposition: 15:02 Disposition: Home, Self-Care 01 Condition: Good Clinical Impression: Feeling unwell - Discharge Information *PRESCRIPTION DRUG MONITORING PROGRAM REVIEWED*: Not Applicable *COPY OF PRESCRIPTION DRUG MONITORING REPORT IN PATIENT JANIS: Not Applicable Referrals: Deepika Kamara NP [Primary Care Provider] - Forms: ED Department Discharge Additional Instructions: Observe for changes/new symptoms over the next few days. We are uncertain what is most likely causing your symptoms. This may be due to a virus. If you start to feel worse, remember to check your pulse! Follow up as needed if you are not feeling better within a few days or if you have sudden worsening problems. OK to take Meclizine once every 8 hours to help with feeling lightheaded. Sepsis Event Note (ED) - Evaluation Sepsis Screening Result: No Definite Risk - Focused Exam Vital Signs: Vital Signs Temp Pulse Resp BP Pulse Ox 07/10/21 09:15 36.4 C 94 17 105/64 98 - My Orders Last 24 Hours: My Active Orders 07/10/21 09:14 Peripheral IV Care [RC] . DIRECTED Sodium Chloride 0.9% [Saline Flush] 10 ml FLUSH ASDIRECTED PRN Peripheral IV Insertion Adult [OM.PC] Routine 07/10/21 09:54 Chest 1V Frontal [CR] Stat 07/10/21 09:55 Abdomen 1V Upright [CR] Stat 07/10/21 11:16 PE Chest [Ang Chest] [CT] Stat 07/10/21 15:05 INR,PT,PROTHROMBIN TIME [COAG] Stat - Assessment/Plan Last 24 Hours: My Active Orders 07/10/21 09:14 Peripheral IV Care [RC] . DIRECTED Sodium Chloride 0.9% [Saline Flush] 10 ml FLUSH ASDIRECTED PRN Peripheral IV Insertion Adult [OM.PC] Routine 07/10/21 09:54 Chest 1V Frontal [CR] Stat 07/10/21 09:55 Abdomen 1V Upright [CR] Stat 07/10/21 11:16 PE Chest [Ang Chest] [CT] Stat 07/10/21 15:05 INR,PT,PROTHROMBIN TIME [COAG] Stat
[2021-07-10] MEDS ORDERED: Iopamidol 755 Mg/ML 100 ML Bottle IVPUSH ONE (11:22)
[2021-07-10] MEDS ORDERED: Sodium Chloride 0.9% 500 ML IV SCH (11:30)
[2021-07-10 17:54] VITALS: PULSE 81
[2021-07-10 17:55] VITALS: BP 106/75
== END 2021-07-10 15:13 | disposition home or self-care (01) ==
LOC: LL.ED 09:08
DX: R07.89 Other chest pain (principal); I48.91 Unspecified atrial fibrillation; E78.00 Pure hypercholesterolemia, unspecified; I50.9 Heart failure, unspecified; Z79.01 Long term (current) use of anticoagulants; Z91.09 Other allergy status, other than to drugs and biological substances; Z79.899 Other long term (current) drug therapy; Z20.822 Contact with and (suspected) exposure to COVID-19
CPT/HCPCS: 36415; 71045; 71275; 74018; 80053; 81001; 83735; 83880; 84484; 85025; 85379; 85610; 93005; 99285; A9270; J7040; Q9967; U0002; 93010; 99284

== ENCOUNTER 2022-12-31 06:44 | Emergency (ER) | payer MEDICARE, BC ==
[2022-12-31] MEDS ORDERED: Ondansetron 4 MG/2 ML SDV IVPUSH ONE ×2 (07:08→07:53)
[2022-12-31] MEDS ORDERED: Sodium Chloride 0.9% 10 ML Syringe FLUSH PRN (07:12)
[2022-12-31] MEDS ORDERED: Sodium Chloride 0.9% 500 ML IV SCH (07:30)
[2022-12-31 07:35] LABS: ANION GAP 10.4 meq/L (7-15)
[2022-12-31] MEDS ORDERED: Acetaminophen 325 MG Tab PO ONE (08:30)
[2022-12-31] MEDS ORDERED: Meclizine 25 MG Tab PO ONE (08:30)
[2022-12-31 08:36] LABS: CORONAVIRUS COVID-19 NAA NEGATIVE (NEGATIVE); RESPIRATORY SYNCYTIAL VIR NAA NEGATIVE (NEGATIVE)
[2022-12-31] MEDS ORDERED: Iopamidol 755 Mg/ML 100 ML Bottle IVPUSH STA (09:26)
[2022-12-31 14:36] VITALS: BP 127/67; PULSE 69
== END 2022-12-31 10:10 | disposition home or self-care (01) ==
LOC: LL.ED 06:44
DX: R53.1 Weakness (principal); R11.2 Nausea with vomiting, unspecified; R19.7 Diarrhea, unspecified; I48.91 Unspecified atrial fibrillation; E78.00 Pure hypercholesterolemia, unspecified; K21.9 Gastro-esophageal reflux disease without esophagitis; Z88.0 Allergy status to penicillin; Z91.048 Other nonmedicinal substance allergy status; Z79.01 Long term (current) use of anticoagulants; Z79.899 Other long term (current) drug therapy; Z20.822 Contact with and (suspected) exposure to COVID-19
CPT/HCPCS: 0241U; 36415; 70450; 70496; 70498; 71045; 80053; 81003; 83690; 83735; 83880; 84443; 84484; 85025; 85379; 85610; 86140; 93005; 96361; 96374; 96376; 99285-25; J2405; J7040; Q9967

== ENCOUNTER 2024-03-12 19:30 | Emergency (ER) | payer MEDICARE, BC ==
[2024-03-12 19:55] LABS: BASOPHILS ABSOLUTE AUTO 0.02 K/uL (0.00-0.20); BASOPHILS PERCENT AUTO 0.3 % (0.0-2.0); EOSINOPHILS ABSOLUTE AUTO 0.15 K/uL (0.00-0.50); EOSINOPHILS PERCENT AUTO 2.2 % (0.0-5.0); HEMOGLOBIN 13.3 g/dL (11.7-15.5); LYMPHOCYTES ABSOLUTE AUTO 2.13 K/uL (0.50-3.50); LYMPHOCYTES PERCENT AUTO 31.3 % (10.0-50.0); MEAN CORPUSCULAR HEMOGLOBIN 29.9 pg (28.2-33.3); MEAN CORPUSCULAR HGB CONC 33.3 g/dL (31.7-36.0); MEAN CORPUSCULAR VOLUME 89.9 fL (84.0-98.0); MONOCYTES ABSOLUTE AUTO 0.62 K/uL (0.00-1.00); MONOCYTES PERCENT AUTO 9.1 % (2.0-14.0); NEUTROPHILS ABSOLUTE AUTO 3.88 K/uL (1.40-7.00); NEUTROPHILS PERCENT AUTO 57.1 % (45.0-80.0); PLATELET COUNT,PLT 243 K/uL (150-350); RED BLOOD CELL COUNT 4.45 M/uL (3.77-5.09); RED CELL DISTRIBUTION WIDTH 14.3 % (11.2-14.1); WHITE BLOOD CELL COUNT,WBC 6.8 K/uL (4.0-10.2)
[2024-03-12] MEDS: Nitroglycerin 0.4 MG Tab.SL SL PRN (19:55)
[2024-03-12 20:20] LABS: ALANINE AMINOTRANSFERASE,ALT 26 U/L (12-78); ALBUMIN 3.4 g/dL (3.4-5.0); ALKALINE PHOSPHATASE 87 IU/L (46-116); ANION GAP 7.7 meq/L (7-15); ASPARTATE AMNIOTRANSFERASE,AST 22 U/L (15-37); BILIRUBIN TOTAL 0.2 mg/dL (0.2-1.0); BLOOD UREA NITROGEN,BUN 20 mg/dL (7-18); CARBON DIOXIDE,CO2 25.3 mmol/L (21.0-32.0); CHLORIDE,CL 106 mmol/L (98-107); CREATININE 1.33 mg/dL (0.51-1.17); GLUCOSE RANDOM 125 mg/dL (70-99); POTASSIUM,K 4.1 mmol/L (3.5-5.1); PRO B-TYPE NATRIUR PEPT,BNPPRO 509 pg/mL (0-125); PROTEIN TOTAL,TP 6.8 g/dL (6.4-8.2); SODIUM,NA 139 mmol/L (136-145)
[2024-03-12 20:30] LABS: ESTIMATED GFR 39 mL/min (>=60)
[2024-03-12 20:38] LABS: INR 4.5 (0.9-1.1); PROTHROMBIN TIME 42.1 SEC (9.0-11.1)
[2024-03-12] MEDS: Aluminum Hydroxide/Magnesium Hydroxide/Simethicone Susp 30 ML Cup PO ONE (20:38)
[2024-03-12] MEDS: Lidocaine 2% Viscous Solution 15 ML UD PO ONE (20:38)
[2024-03-12] MEDS: Sodium Chloride 0.9% 10 ML Syringe FLUSH PRN (21:24)
[2024-03-12] MEDS: Pantoprazole 40 MG Vial IVPUSH ONE (21:24)
[2024-03-12 21:54] VITALS: BP 120/78; PULSE 86
[2024-03-13] MEDS ORDERED: Aspirin 81 MG Tab.Chew PO ONE (19:52)
== END 2024-03-12 21:40 | disposition home or self-care (01) ==
LOC: LL.ED 19:30
DX: R07.89 Other chest pain (principal); I48.91 Unspecified atrial fibrillation; E78.00 Pure hypercholesterolemia, unspecified; K21.9 Gastro-esophageal reflux disease without esophagitis; I50.9 Heart failure, unspecified; Z91.048 Other nonmedicinal substance allergy status; Z88.0 Allergy status to penicillin; Z79.899 Other long term (current) drug therapy; Z79.01 Long term (current) use of anticoagulants; Z79.890 Hormone replacement therapy
CPT/HCPCS: 36415; 71045; 80053; 83605; 83735; 83880; 84484; 85025; 85379; 85610; 93005; 93010; 96374; 99284; 99285-25; A9270-GY; C9113; J3490